=== PATIENT | male | born 1940 | race Caucasian/White ===

== ENCOUNTER 2020-03-02 09:56 | Outpatient (REF) | payer MEDICARE, SELFPAY ==
[2020-03-02 10:54] LABS: Basophils Absolute Auto 0.1 X10*3/uL (0.0-0.2); Basophils Percent Auto 0.9 % (0-2); Eosinophils Absolute Auto 0.2 X10*3/uL (0.0-0.4); Eosinophils Percent Auto 2.8 % (0-4); Hematocrit 42.1 % (42-52); Hemoglobin 13.8 g/dl (14.0-18.0); Imm Gran Abs Auto 0.02 X10*3/uL (0.00-0.03); Imm Gran Pct Auto 0.4 % (0.0-0.4); Lymphocytes Absolute Auto 1.4 X10*3/uL (1.2-4.9); MANUAL DIFF FLAG NO; Mean Corpuscular HGB Conc 32.8 g/dl (31.0-36.0); Mean Corpuscular Hemoglobin 30.7 pg (27.0-33.0); Mean Corpuscular Volume 93.6 fL (80-98); Mean Platelet Volume 11.2 fL (9.4-12.4); Monocytes Absolute Auto 0.6 X10*3/uL (0.1-1.2); Monocytes Percent Auto 11.3 % (2-11); Neutrophils Absolute Auto 3.1 X10*3/uL (2.0-8.3); Neutrophils Percent Auto 57.6 % (45-73); Platelet Count 250 X10*3/uL (160-400); White Blood Count 5.3 X10*3/uL (4.8-10.8)
[2020-03-02 11:08] LABS: Estimated Average Glucose 151 mg/dL; Hemoglobin A1c % 6.9 %
[2020-03-02 11:19] LABS: Creatinine Urine 89.04 mg/dL; Microalbum/Creatinine Ratio Ur 12.3 ug/mg cr
[2020-03-02 11:25] LABS: Alanine Aminotransferase 34 U/L (0-40); Albumin Level 4.1 g/dL (3.5-5.0); Alkaline Phosphatase 71 U/L (39-117); Anion Gap 11 (12-20); Aspartate Amino Transferase 41 U/L (5-37); Bilirubin Total 0.5 mg/dL (0.0-1.0); Blood Urea Nitrogen 22 mg/dL (9-16); Calcium 9.9 mg/dL (8.4-10.2); Carbon Dioxide 30 mmol/L (22-29); Chloride 104 mmol/L (96-108); Cholesterol 159 mg/dL; Estimated Glomerular Filt Rate 55; Glucose Random 129 mg/dL (60-115); HDL Cholesterol 30 mg/dL; LDL Cholesterol Calculated 92 mg/dl; Potassium 4.9 mmol/l (3.3-5.1); Sodium 140 mmol/L (135-145); Total Protein 7.2 g/dL (6.5-8.0); Triglycerides 189 mg/dL
[2020-03-02 11:29] LABS: Free T4 (Free Thyroxine) 0.85 ng/dL (0.71-1.85); Thyroid Stimulating Hormone 3.26 uIU/mL (0.32-4.0)
[2020-03-02 11:41] LABS: Folate > 20.0 ng/mL (> or = 4.0); Vitamin B12 347 pg/mL (200-900)
== END 2020-03-02 09:57 | disposition home or self-care (01) ==
LOC: HO.LAB 09:56
PROVIDERS: PCP Internal Medicine; Visit Provider Internal Medicine
DX: E78.00 Pure hypercholesterolemia, unspecified (principal); E03.9 Hypothyroidism, unspecified; I10 Essential (primary) hypertension; E11.65 Type 2 diabetes mellitus with hyperglycemia; J44.9 Chronic obstructive pulmonary disease, unspecified
CPT/HCPCS: 36415; 80053; 80061; 82043; 82607; 82746; 83036; 84439; 84443; 85025

== ENCOUNTER 2020-10-06 13:06 | Outpatient (REF) | payer MEDICARE, SELFPAY ==
[2020-10-06 13:58] LABS: MANUAL DIFF FLAG NO
[2020-10-06 14:04] LABS: Basophils Absolute Auto 0.1 X10*3/uL (0.0-0.2); Basophils Percent Auto 0.8 % (0-2); Eosinophils Absolute Auto 0.2 X10*3/uL (0.0-0.4); Eosinophils Percent Auto 3.3 % (0-4); Hematocrit 39.4 % (42-52); Imm Gran Abs Auto 0.06 X10*3/uL (0.00-0.03); Immature Retic Fraction 11.2 % (2.3-13.4); Lymphocytes Absolute Auto 1.7 X10*3/uL (1.2-4.9); Lymphocytes Percent Auto 26.3 % (20-40); Mean Corpuscular Hemoglobin 31.3 pg (27.0-33.0); Mean Corpuscular Volume 94.7 fL (80-98); Mean Platelet Volume 11.8 fL (9.4-12.4); Monocytes Absolute Auto 0.9 X10*3/uL (0.1-1.2); Monocytes Percent Auto 14.8 % (2-11); Neutrophils Absolute Auto 3.4 X10*3/uL (2.0-8.3); Neutrophils Percent Auto 53.8 % (45-73); Platelet Count 196 X10*3/uL (160-400); Red Blood Count 4.16 X10*6/uL (4.60-5.80); Retic HGB Equivalent 34.7 pg (30.0-35.0); Reticulocyte Percent 1.5 % (0.5-1.8); Reticulocytes Absolute 0.061 X10*6/uL (0.026-0.095); White Blood Count 6.3 X10*3/uL (4.8-10.8)
[2020-10-06 14:29] LABS: Alanine Aminotransferase 37 U/L (0-40); Albumin Level 4.4 g/dL (3.5-5.0); Alkaline Phosphatase 77 U/L (39-117); Anion Gap 10 (12-20); Aspartate Amino Transferase 42 U/L (5-37); Bilirubin Total 0.5 mg/dL (0.0-1.0); Blood Urea Nitrogen 27 mg/dL (9-16); Calcium 10.6 mg/dL (8.4-10.2); Carbon Dioxide 28 mmol/L (22-29); Chloride 106 mmol/L (96-108); Cholesterol 157 mg/dL; Estimated Glomerular Filt Rate 56; Glucose Random 80 mg/dL (60-115); HDL Cholesterol 29 mg/dL; Iron 56 mcg/dL (45-160); LDL Cholesterol Calculated 53 mg/dl; Percent Iron Saturation 14 % (15-50); Potassium 4.4 mmol/L (3.3-5.1); Sodium 140 mmol/L (135-145); Total Iron Binding Capacity 397 mcg/dL (228-428); Total Protein 7.2 g/dL (6.5-8.0); Triglycerides 376 mg/dL; Unsaturated Iron Binding 341 ug/dL
[2020-10-06 14:39] LABS: Ferritin 463 ng/mL (20-250); Free T4 (Free Thyroxine) 0.87 ng/dL (0.71-1.85); Thyroid Stimulating Hormone 4.48 uIU/mL (0.32-4.0)
[2020-10-06 14:49] LABS: Folate 18.7 ng/mL (> or = 4.0); Vitamin B12 413 pg/mL (200-900)
== END 2020-10-06 13:07 | disposition home or self-care (01) ==
LOC: HO.LAB 13:06
PROVIDERS: PCP Internal Medicine; Visit Provider Internal Medicine
DX: E78.00 Pure hypercholesterolemia, unspecified (principal)
CPT/HCPCS: 36415; 80053; 80061; 82607; 82728; 82746; 83540; 84439; 84443; 85025; 85045

== ENCOUNTER 2021-01-14 08:47 | Outpatient (REF) | payer MEDICARE, SELFPAY ==
[2021-01-14 10:23] LABS: Free T4 (Free Thyroxine) 0.85 ng/dL (0.71-1.85); Thyroid Stimulating Hormone 5.01 uIU/mL (0.32-4.0)
== END 2021-01-14 08:48 | disposition home or self-care (01) ==
LOC: HO.LAB 08:47
PROVIDERS: PCP Internal Medicine; Visit Provider Internal Medicine
DX: E03.9 Hypothyroidism, unspecified (principal)
CPT/HCPCS: 36415; 84439; 84443

== ENCOUNTER 2021-05-24 14:05 | Outpatient (REF) | payer MEDICARE, SELFPAY ==
[2021-05-24 14:47] LABS: Calcium 9.7 mg/dL (8.4-10.2)
[2021-05-24 15:09] LABS: Creatinine Urine 61.84 mg/dL
[2021-05-24 15:13] LABS: Free T4 (Free Thyroxine) 1.01 ng/dL (0.71-1.85); Thyroid Stimulating Hormone 2.33 uIU/mL (0.32-4.0)
[2021-05-26 07:16] LABS: Calcium (PTHI) 10.3 mg/dL (8.6-10.3); PTHI 29 pg/mL (16-77)
== END 2021-05-24 14:06 | disposition home or self-care (01) ==
LOC: HO.LAB 14:05
PROVIDERS: PCP Internal Medicine; Visit Provider Internal Medicine
DX: E11.65 Type 2 diabetes mellitus with hyperglycemia (principal); E83.52 Hypercalcemia; E03.9 Hypothyroidism, unspecified
CPT/HCPCS: 36415; 82310; 83970; 84439; 84443

== ENCOUNTER 2021-09-13 10:45 | Outpatient (REF) | payer MEDICARE, SELFPAY ==
[2021-09-13 10:55] LABS: MANUAL DIFF FLAG NO
[2021-09-13 13:06] LABS: Basophils Absolute Auto 0.1 X10*3/uL (0.0-0.2); Basophils Percent Auto 0.9 % (0-2); Eosinophils Absolute Auto 0.2 X10*3/uL (0.0-0.4); Eosinophils Percent Auto 2.2 % (0-4); Hematocrit 40.8 % (42.0-52.0); Hemoglobin 13.3 g/dl (14.0-18.0); Imm Gran Abs Auto 0.03 X10*3/uL (0.00-0.03); Imm Gran Pct Auto 0.4 % (0.0-0.4); Lymphocytes Absolute Auto 1.5 X10*3/uL (1.2-4.9); Lymphocytes Percent Auto 18.9 % (20-40); Mean Corpuscular HGB Conc 32.6 g/dl (31.0-36.0); Mean Corpuscular Hemoglobin 30.6 pg (27.0-33.0); Mean Corpuscular Volume 93.8 fL (80.0-98.0); Monocytes Absolute Auto 1.2 X10*3/uL (0.1-1.2); Monocytes Percent Auto 14.9 % (2-11); Neutrophils Absolute Auto 4.8 x10*3/uL (2.0-8.3); Neutrophils Percent Auto 62.7 % (45-73); Platelet Count 184 X10*3/uL (160-400); Red Blood Count 4.35 X10*6/uL (4.60-5.80); Red Cell Distribution Width 13.4 % (11.0-16.0); White Blood Count 7.7 X10*3/uL (4.8-10.8)
[2021-09-13 13:47] LABS: Estimated Average Glucose 128 mg/dL; Hemoglobin A1C 152.6762 umol/L; Hemoglobin A1c % 6.1 %
[2021-09-13 14:01] LABS: Alanine Aminotransferase 27 U/L (0-40); Albumin Level 4.4 g/dL (3.5-5.0); Alkaline Phosphatase 75 U/L (39-117); Anion Gap 13 (12-20); Aspartate Amino Transferase 26 U/L (5-37); Bilirubin Total 0.7 mg/dL (0.0-1.0); Blood Urea Nitrogen 27 mg/dL (9-16); Calcium 9.3 mg/dL (8.4-10.2); Carbon Dioxide 23 mmol/L (22-29); Chloride 107 mmol/L (96-108); Cholesterol 172 mg/dL; Estimated Glomerular Filt Rate 49; Glucose Random 114 mg/dL (60-115); HDL Cholesterol 36 mg/dL; LDL Cholesterol Calculated 103 mg/dl; Potassium 4.5 mmol/L (3.3-5.1); Sodium 138 mmol/L (135-145); Total Protein 7.3 g/dL (6.5-8.0); Triglycerides 165 mg/dL
[2021-09-13 14:09] LABS: Free T4 (Free Thyroxine) 0.95 ng/dL (0.71-1.85); Thyroid Stimulating Hormone 2.62 uIU/mL (0.32-4.0)
[2021-09-13 14:20] LABS: Folate > 20.0 ng/mL (> or = 4.0); Vitamin B12 468 pg/mL (200-900)
[2021-09-13 15:23] LABS: Creatinine Urine 119.92 mg/dL; Microalbum/Creatinine Ratio Ur 16.6 ug/mg cr
== END 2021-09-13 10:46 | disposition home or self-care (01) ==
LOC: HO.LAB 10:45
PROVIDERS: PCP Internal Medicine; Visit Provider Internal Medicine
DX: E78.00 Pure hypercholesterolemia, unspecified (principal); E11.65 Type 2 diabetes mellitus with hyperglycemia; I10 Essential (primary) hypertension; E03.9 Hypothyroidism, unspecified
CPT/HCPCS: 36415; 80053; 80061; 82043; 82607; 82746; 83036; 84439; 84443; 85025

== ENCOUNTER 2021-12-19 11:29 | Outpatient (REF) | payer MEDICARE, SELFPAY ==
[2021-12-19 12:16] LABS: Estimated Average Glucose 137 mg/dL; Hemoglobin A1c % 6.4 %
[2021-12-19 12:30] LABS: Alanine Aminotransferase 40 U/L (0-40); Albumin Level 4.4 g/dL (3.5-5.0); Alkaline Phosphatase 72 U/L (39-117); Anion Gap 14 (12-20); Aspartate Amino Transferase 42 U/L (5-37); Bilirubin Total 0.6 mg/dL (0.0-1.0); Blood Urea Nitrogen 23 mg/dL (9-16); Calcium 10.3 mg/dL (8.4-10.2); Carbon Dioxide 27 mmol/L (22-29); Chloride 103 mmol/L (96-108); Cholesterol 172 mg/dL; Estimated Glomerular Filt Rate 48; Glucose Random 101 mg/dL (60-115); HDL Cholesterol 31 mg/dL; LDL Cholesterol Calculated 104 mg/dl; Potassium 5.3 mmol/L (3.3-5.1); Sodium 139 mmol/L (135-145); Total Protein 7.3 g/dL (6.5-8.0); Triglycerides 186 mg/dL
== END 2021-12-19 11:30 | disposition home or self-care (01) ==
LOC: HO.LAB 11:29
PROVIDERS: PCP Internal Medicine; Visit Provider Internal Medicine
DX: E11.65 Type 2 diabetes mellitus with hyperglycemia (principal); E78.00 Pure hypercholesterolemia, unspecified
CPT/HCPCS: 36415; 80053; 80061; 83036

== ENCOUNTER 2022-03-24 09:42 | Outpatient (REF) | payer MEDICARE, SELFPAY ==
[2022-03-24 10:20] LABS: Appearance Urine Clear; Color Urine Yellow; Glucose Urine UA Negative (Negative); Leukocyte Esterase Urine Negative (Negative); Nitrite Urine Negative (Negative); PH 5.5 (5.0-9.0); Specific Gravity - Urine 1.015 (1.005-1.025); Urine Blood Negative (Negative); Urine Ketones Negative (Negative); Urine Protein Negative (Neg-Trace)
[2022-03-24 10:23] LABS: Bacteria Urine None Seen (None Seen); Hyaline Casts Urine 0-2 /LPF (0-2); RBC Urine 0-2 /HPF (0-2); Squamous Epithelial Cell Urine 0-2 /HPF (0-2); WBC Urine 0-5 /HPF (0-5)
[2022-03-24 11:13] LABS: Alanine Aminotransferase 37 U/L (0-40); Albumin Level 4.2 g/dL (3.5-5.0); Alkaline Phosphatase 74 U/L (39-117); Anion Gap 13 (12-20); Aspartate Amino Transferase 30 U/L (5-37); Bilirubin Total 0.6 mg/dL (0.0-1.0); Blood Urea Nitrogen 29 mg/dL (9-16); Calcium 9.8 mg/dL (8.4-10.2); Carbon Dioxide 25 mmol/L (22-29); Chloride 106 mmol/L (96-108); Cholesterol 167 mg/dL; Estimated Glomerular Filt Rate > 60; Glucose Random 116 mg/dL (60-115); HDL Cholesterol 32 mg/dL; LDL Cholesterol Calculated 102 mg/dl; Sodium 139 mmol/L (135-145); Total Protein 6.9 g/dL (6.5-8.0); Triglycerides 166 mg/dL
== END 2022-03-24 09:43 | disposition home or self-care (01) ==
LOC: HO.LAB 09:42
PROVIDERS: PCP Internal Medicine; Visit Provider Internal Medicine
DX: E78.00 Pure hypercholesterolemia, unspecified (principal); R35.0 Frequency of micturition; N28.9 Disorder of kidney and ureter, unspecified
CPT/HCPCS: 36415; 80053; 80061; 81001

== ENCOUNTER 2022-04-18 13:40 | Outpatient (REF) | payer MEDICARE, SELFPAY ==
--- NOTE | ~2022-04-18 | US_ITS ---
EXAMINATION: US PELVIS LIMITED (BLADDER) CLINICAL INFORMATION: Frequency of micturition. COMPARISON: CT abdomen without contrast 09/03/2015. Ultrasound abdomen complete 06/27/2012. TECHNIQUE: Real-time imaging of the bladder. FINDINGS: BLADDER: Well distended and normal. Bilateral ureteral jets are demonstrated. Prevoid bladder volume is 193 mL. Postvoid bladder volume is 35 mL. There are bladder wall trabeculations, with thickening to 7 mm ADDITIONAL FINDINGS: Prostate dimensions are 3.5 x 4.2 x 4.0 cm (volume 30.7 mL). Coarse prostatic calcifications are noted. US/US bladder IMPRESSION: 1. There is a thickened, trabeculated bladder wall, possibly on the basis of hypertrophy. Urinary tract infection not excluded. Recommend correlation with the patient's most recent urinalysis. 2. There is borderline prostatomegaly.
== END 2022-04-18 13:41 | disposition home or self-care (01) ==
LOC: HO.US 13:40
PROVIDERS: Visit Provider Internal Medicine
DX: R35.0 Frequency of micturition (principal)
CPT/HCPCS: 76857

== ENCOUNTER 2022-06-23 07:42 | Outpatient (REF) | payer MEDICARE, SELFPAY ==
[2022-06-23 07:51] LABS: MANUAL DIFF FLAG NO
[2022-06-23 08:10] LABS: Basophils Absolute Auto 0.1 X10*3/uL (0.0-0.2); Eosinophils Absolute Auto 0.3 X10*3/uL (0.0-0.4); Hematocrit 42.9 % (42.0-52.0); Imm Gran Abs Auto 0.03 X10*3/uL (0.00-0.03); Imm Gran Pct Auto 0.5 % (0.0-0.4); Immature Retic Fraction 9.2 % (2.3-13.4); Mean Corpuscular HGB Conc 32.6 g/dl (31.0-36.0); Mean Corpuscular Volume 92.1 fL (80.0-98.0); Mean Platelet Volume 11.3 fL (9.4-12.4); Monocytes Absolute Auto 0.9 X10*3/uL (0.1-1.2); Monocytes Percent Auto 14.1 % (2-11); Neutrophils Absolute Auto 3.1 x10*3/uL (2.0-8.3); Neutrophils Percent Auto 48.4 % (45-73); Platelet Count 202 X10*3/uL (160-400); Red Blood Count 4.66 X10*6/uL (4.60-5.80); Red Cell Distribution Width 13.5 % (11.0-16.0); Retic HGB Equivalent 36.6 pg (30.0-35.0); Reticulocyte Percent 1.4 % (0.5-1.8); Reticulocytes Absolute 0.065 X10*6/uL (0.026-0.095); White Blood Count 6.3 X10*3/uL (4.8-10.8)
[2022-06-23 08:19] LABS: Estimated Average Glucose 160 mg/dL; Hemoglobin A1c % 7.2 %
[2022-06-23 08:36] LABS: Blood Urea Nitrogen 32 mg/dL (9-16); Cholesterol 168 mg/dL; HDL Cholesterol 30 mg/dL; Iron 86 mcg/dL (45-160); LDL Cholesterol Calculated 93 mg/dl; Percent Iron Saturation 24 % (15-50); Total Iron Binding Capacity 364 mcg/dL (228-428); Triglycerides 225 mg/dL; Unsaturated Iron Binding 278 ug/dL
[2022-06-23 09:05] LABS: Ferritin 537 ng/mL (20-250); Folate 9.5 ng/mL (> or = 4.0); Thyroid Stimulating Hormone 5.09 uIU/mL (0.32-4.0); Vitamin B12 313 pg/mL (200-900)
== END 2022-06-23 07:43 | disposition home or self-care (01) ==
LOC: HO.LAB 07:42
PROVIDERS: PCP Internal Medicine; Visit Provider Internal Medicine
DX: E78.00 Pure hypercholesterolemia, unspecified (principal); N28.9 Disorder of kidney and ureter, unspecified; D64.9 Anemia, unspecified; E11.9 Type 2 diabetes mellitus without complications
CPT/HCPCS: 36415; 80061; 82607; 82728; 82746; 83036; 83540; 84439; 84443; 84520; 85025; 85045

== ENCOUNTER 2022-09-26 09:03 | Outpatient (REF) | payer MEDICARE, SELFPAY ==
[2022-09-26 10:03] LABS: Free T4 (Free Thyroxine) 0.83 ng/dL (0.71-1.85); Thyroid Stimulating Hormone 4.24 uIU/mL (0.32-4.0)
== END 2022-09-26 09:04 | disposition home or self-care (01) ==
LOC: HO.LAB 09:03
PROVIDERS: PCP Internal Medicine; Visit Provider Internal Medicine
DX: E03.9 Hypothyroidism, unspecified (principal)
CPT/HCPCS: 36415; 84439; 84443

== ENCOUNTER 2022-09-28 16:01 | Outpatient (AMB) | payer MEDICARE, SELFPAY ==
[2022-09-28 16:04] VITALS: BP 120/82; PULSE 57; O2SAT 98; BMI 28.3
--- NOTE | 2022-09-28 16:04 | A.OFFPC_ITS ---
Vital Signs 09/28/22 16:04 Height 5 ft 10 in Weight 197 lb BMI 28.3 BP 120/82 Blood Pressure Location Lt brachial Position Sitting Pulse 57 Pulse Source Pulse Oximeter Pulse Oximetry (%) 98 Oxygen Delivery Method Room Air Intake Visit Reasons: [employer] Vice [employer] Required: No Accompanied by: Self / Same As Patient Allergies hydromorphone [Dilaudid] Adverse Reaction (Unknown, Verified 09/28/22 16:22) Unknown Medication List - Last Reconciled 09/28/22 by Nargis Palm MD aspirin (Adult Aspirin Regimen) 81 mg PO DAILY atorvastatin 20 mg PO DAILY cholecalciferol (vitamin D3) 25 mcg PO DAILY colchicine 0.6 mg PO DAILY fenofibrate 160 mg PO DAILY levothyroxine 88 mcg PO QAM 90 days lisinopril 40 mg PO DAILY tramadol 1-2 tablets PO every 6 to 8 hours; 30 days Tobacco use date assessed: 09/28/22 Fall risk assessment: No Falls in past year Last assessed Fall Risk: 09/28/22 Dental Screening Dental Screen Date: 09/28/22 Did you have a dental visit in the last 12 months?: No Did you have a dental problem in the last 6 months where you did not have access to dental care?: No Was dental information given to patient?: No HPI HPI Comments History of Present Illness Details This is a 81-year-old male with diabetes mellitus type 2, hypertension, hypothyroidism and mixed hyperlipidemia that comes today for follow-up on his conditions. A1c within goal and diabetes has been controlled with diet. Blood pressure stable. Last TSH was mildly elevated and levothyroxine was change recently. LDL very close to goal. Denies any chest pain or shortness of breath. Has been more sad than usual due to passing away a month ago but declines the need for counseling or medication. [facility] Medical History (Updated 09/29/22 @ 08:54 by Nargis Palm MD) AAA (abdominal aortic aneurysm) Alcohol abuse Carpal tunnel syndrome, left COPD (chronic obstructive pulmonary disease) Degenerative disc disease Gout Hypercholesterolemia Hypertension Hypothyroid Insomnia Overweight (BMI 25.0-29.9) PTSD (post-traumatic stress disorder) TIA (transient ischemic attack) Type 2 diabetes mellitus with hyperglycemia Surgical History H/O left wrist surgery H/O pelvic surgery History of carpal tunnel release History of colonoscopy History of lumbar fusion History of lumbar surgery Varicocele Family History Father CVD (cardiovascular disease) Cancer Mother Cancer Social History Housing: House Alcohol intake: current Alcohol intake frequency: a few times a month Patient Tobacco Use Status: Former Tobacco user Tobacco use type: Cigarette e-Cigarette/Vaping Use: Never Used Second Hand Smoke Exposure: No service: Yes Current occupational status: retired Cognitive needs: No Hearing needs: No Vision needs: Yes Questionnaire PHQ-9 Over the last 2 weeks, how often have you been bothered by any of the following problems? 1. Little interest or pleasure in doing things: not at all 2. Feeling down, depressed, or hopeless: not at all 3. Trouble falling or staying asleep, or sleeping too much: not at all 4. Feeling tired or having little energy: not at all 5. Poor appetite or overeating: not at all 6. Feeling bad about yourself - or that you are a failure or have let yourself or your family down: not at all 7. Trouble concentrating on things, such as reading the newspaper or watching television: not at all 8. Moving or speaking so slowly that other people could have noticed. Or the opposite - being so fidgety or restless that you have been moving around a lot more than usual: not at all 9. Thoughts that you would be better off or of hurting yourself in some way: not at all Total score: 0 Depression Screening Interpretation: Negative 25988 - PHQ-9 Billing: Yes Source: Developed by Drs. Vicente Rocha, Tessa Mantilla, Marcelo Jacobson and colleagues, with an educational leeann from [employer]. Thrive Questionnaire Date Thrive assessed: 09/28/22 I am a: Patient What is your living situation today?: I have a steady place to live Within the past 12 months, did the food you bought not last and you didn't have the money to get more?: Never true Within the past 12 months, did you worry whether your food would run out before you got money to buy more?: Never true Do you have trouble paying for medicines?: No Do you have trouble getting transportation to medical appointments?: No Do you have trouble paying your heating and electricity bill?: No Do you have trouble taking care of your child, family member or friend?: No Do you have trouble with day-to-day activities such as bathing, preparing meals, shopping, managing finances, etc.?: No Are you currently unemployed and looking for a job?: No Are you interested in more education?: No Please select the resources that you would like help with: None Currently or been in a relationship where the following occur: no concerns reported AUDIT C Alcohol Use Questionnaire (AUDIT-C) 1. How often do you have a drink containing alcohol?: Monthly or less 2. How many drinks containing alcohol do you have on a typical day when you are drinking?: 1 or 2 3. How often do you have six or more drinks on one occasion?: Less than monthly Total Score: 2 Score Reviewed/Action Taken: No RACHEL-7 AMB Questionnaire RACHEL-7 Date RACHEL - 7 assessed: 09/28/22 Feeling nervous, anxious, or on edge: 0 = Not at all Not being able to stop or control worryin = Not at all Worrying too much about different things: 0 = Not at all Trouble relaxin = Not at all Being so restless that it is hard to sit still: 0 = Not at all Becoming easily annoyed or irritable: 0 = Not at all Feeling afraid as if something awful might happen: 0 = Not at all Total RACHEL-7 score (0-4 normal; 5-9 mild; 10-14 moderate; 15-21 severe): 0 Source: Developed by Drs. Vicente Rocha, Tessa Mantilla, Marcelo Jacobson and colleagues, with an educational leeann from [employer]. RACHEL-7 Assessment Billing RACHEL-7 Assessment Tool: RACHEL-7 Assessment 45773 Review of Systems Const All systems reviewed & are unremarkable except as noted in HPI and below Eyes Reports no additional complaints, Denies change in vision and Denies other visual disturbances Card Denies chest pain at rest, Denies chest pain with activity, Denies edema, Denies irregular heart rhythm, Denies claudication, Denies dyspnea, Denies dyspnea on exertion, Denies orthopnea, Denies paroxysmal nocturnal dyspnea and Denies slow heart rate Resp Denies cough, Denies dyspnea and Denies dyspnea on exertion GI Denies abdominal pain, Denies change in bowel habits, Denies excessive flatus, Denies nausea and Denies vomiting Denies urinary hesitancy, Denies urinary incontinence and Denies urinary urgency Musc Denies abnormal gait, Denies atrophy, Denies deformity and Denies limited range of motion Skin/Breast Denies bleeding lesions, Denies changing lesions and Denies rash Neuro Denies abnormal gait and Denies lack of coordination Physical exam (Primary Care) Vital Signs: Last Vital Signs Pulse 57 09/28/22 16:04 BP 120/82 09/28/22 16:04 Pulse Ox 98 09/28/22 16:04 Oxygen Delivery Method Room Air 09/28/22 16:04 BMI result Body Mass Index 28.3 Tobacco/Smoking Status: Tobacco use Status Tobacco use date assessed 09/28/22 09/28/22 16:10 Patient Tobacco Use Status Former Tobacco user 09/28/22 16:10 Tobacco use type Cigarette 09/28/22 16:10 e-Cigarette/Vaping Use Never Used 09/28/22 16:10 PHQ-9: PHQ-9 Score PHQ-9: Total score 0 09/28/22 16:40 Depression Screening Interpretation: Negative Thrive Assessment: Date of Thrive Assessment Date Thrive assessed 09/28/22 09/28/22 16:10 Currently or been in a relationship where the following occur: no concerns reported Eyes General: appearance normal, both eyes and all related structures Eyelids: Yes eyelids normal Conjunctivae: conjunctivae normal Neck Neck: Yes normal visual inspection and Yes supple Resp Effort & Inspection: normal respiratory effort Auscultation: clear to auscultation bilaterally Cardio Jugular venous distension: no JVD Rate: regular rate Rhythm: regular rhythm Heart sounds: S1 normal heart sound present and S2 normal heart sound present Extrem General: Yes full ROM Results AMB Hemoglobin A1c AMB Hemoglobin A1c 6.6 % Last Edit by JOSHUA Serrano on 09/28/22 16:2 1 Results Reviewed Results Reviewed: Laboratory Last Values Hgb A1c (Clinic) 6.6 % (4.0-6.0) H 09/28/22 16:11 Assessment and Plan Assessment & Plan (1) Hypertension: Code(s): I10 - Essential (primary) hypertension Qualifiers: Hypertension type: essential hypertension Qualified Code(s): I10 - Essential (primary) hypertension Plan: Continue lisinopril. Blood pressure goal is equal or less than 130/80. (2) Type 2 diabetes mellitus with hyperglycemia: Code(s): E11.65 - Type 2 diabetes mellitus with hyperglycemia Qualifiers: Diabetes mellitus penitentiary insulin use: without intermediate card tender use Qualified Code(s): E11.65 - Type 2 diabetes mellitus with hyperglycemia Plan: Continue diet. A1c goal is equal or less than 7%. (3) Hypothyroid: Code(s): E03.9 - Hypothyroidism, unspecified Qualifiers: Hypothyroidism type: acquired Qualified Code(s): E03.9 - Hypothyroidism, unspecified Plan: Continue new dose of levothyroxine. Monitor TSH. (4) Mixed hyperlipidemia: Code(s): E78.2 - Mixed hyperlipidemia Plan: Continue statins and fibrates. LDL goal should be less than 70. Orders: Orders AMB Hemoglobin A1c 09/28/22 E11.65 - Type 2 diabetes mellitus with hyperglycemia Coding Level of Care Code Est Pt Level 4 (98046) Diagnoses Hypertension I10 Hypertension type: essential hypertension Type 2 diabetes mellitus with hyperglycemia E11.65 Diabetes mellitus penitentiary insulin use: without penitentiary use Hypothyroid E03.9 Hypothyroidism type: acquired Mixed hyperlipidemia E78.2 Additional Codes RACHEL-7 Assessment Billing - RACHEL-7 Assessment Tool: RACHEL-7 Assessment 75668 ([id number]) Time Spent (min) 22
== END 2022-09-28 16:37 | disposition home or self-care (01) ==
PROVIDERS: Visit Provider Internal Medicine
DX: I10 Essential (primary) hypertension (principal); E11.65 Type 2 diabetes mellitus with hyperglycemia; E03.9 Hypothyroidism, unspecified; E78.2 Mixed hyperlipidemia
CPT/HCPCS: 83036; 99214

== ENCOUNTER 2022-10-11 10:42 | Outpatient (AMB) | payer MEDICARE, SELFPAY ==
[2022-10-11 10:46] VITALS: BP 138/74; PULSE 56; O2SAT 96; BMI 28.7
--- NOTE | 2022-10-11 10:46 | A.OFFVIS_ITS ---
Intake Vital Signs 10/11/22 10:46 Height 5 ft 10 in Weight 200 lb BMI 28.7 BP 138/74 Blood Pressure Location Lt brachial Position Sitting Pulse 56 Pulse Source Pulse Oximeter Temp Source Skin Pulse Oximetry (%) 96 Oxygen Delivery Method Room Air Intake Visit Reasons: [id number] Intake Note: Patient is here for an Annual Wellness Visit. 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: No Allergies hydromorphone [Dilaudid] Adverse Reaction (Unknown, Verified 10/11/22 11:04) Unknown Medication List - Last Reconciled 10/11/22 by CHAPIN Almonte aspirin (Adult Aspirin Regimen) 81 mg PO DAILY atorvastatin 20 mg PO DAILY cholecalciferol (vitamin D3) 25 mcg PO DAILY colchicine 0.6 mg PO DAILY fenofibrate 160 mg PO DAILY levothyroxine 88 mcg PO QAM 90 days lisinopril 40 mg PO DAILY tramadol 1-2 tablets PO every 6 to 8 hours; 30 days Fall Risk Assessment Date Fall Risk Assessed: 09/28/22 HPI [facility]-G0439 HPI Details Patient is an 82-year-old male presents today for subsequent wellness visit. Patient of Dr. Garces. Patient is up-to-date with his health preventative screenings.? He is up-to-date with immunizations. [place] of care was reviewed with the patient and he was provided with a screening schedule.? End of life planning was discussed with the patient and he was provided with healthcare proxy and MOLST forms. ? [facility] Medical History AAA (abdominal aortic aneurysm) Alcohol abuse Carpal tunnel syndrome, left COPD (chronic obstructive pulmonary disease) Degenerative disc disease Gout Hypercholesterolemia Hypertension Hypothyroid Insomnia Overweight (BMI 25.0-29.9) PTSD (post-traumatic stress disorder) TIA (transient ischemic attack) Type 2 diabetes mellitus with hyperglycemia Surgical History H/O left wrist surgery H/O pelvic surgery History of carpal tunnel release History of colonoscopy History of lumbar fusion History of lumbar surgery Varicocele Family History Father CVD (cardiovascular disease) Cancer Mother Cancer Social History Housing: House Alcohol intake: current Alcohol intake frequency: a few times a month Patient Tobacco Use Status: Former Tobacco user Tobacco use type: Cigarette e-Cigarette/Vaping Use: Never Used Second Hand Smoke Exposure: No service: Yes Current occupational status: retired Cognitive needs: No Hearing needs: No Vision needs: Yes Questionnaire Medicare Wellness Checkup What is your age?: 82 or older What gender do you identify with?: male During the past 4 weeks, how much bodily pain have you generally had?: mild pain During the past 4 weeks, was someone available to help you if you needed & wanted help?: yes, as much as I wanted During the past 4 weeks, what was the hardest physical activity you could do for at least 2 minutes?: moderate Can you get to places out of walking distance without help? (For eg., can you travel alone on buses, taxis or drive your car?): Yes Can you go shopping for groceries or clothes without someone's help?: Yes Can you prepare your own meals?: Yes Can you do your housework without help?: Yes Because of any health problems, do you need the help of another person with your personal care needs such as eating, bathing, dressing or getting around the house?: No Can you handle your own money without help?: Yes During the past 4 weeks, how would you rate your health in general?: good During the past 4 weeks how have things been going for you?: good & bad parts about equal Are you having difficulties driving your car?: no Do you always fasten your seat belt when you are in a car?: yes, usually During past 4 weeks, have you been bothered by the following: never: Falling or dizzy when standing up, Sexual problems?, Trouble eating well?, Teeth or denture problems? and Problems using the telephone? and sometimes: Tiredness or fatigue? Have you fallen 2 or more times in the past year?: No Are you afraid of falling?: No Are you a smoker?: no During the past 4 weeks, how many drinks of wine, beer, or other alcoholic beverages did you have?: 1 drink or less per week Do you exercise for about 20 minutes 3 or more times a week?: yes, some of the time Have you been given information to help with the following?: no: Hazards in your house that might hurt you? and no: Keeping track of your medications? How often do you have trouble taking medicines the way you have been told to take them?: I always take medicine as prescribed How confident are you that you can control & manage most of your health problems?: very confident What is your race?: White Mini Mental State Exam (MMSE) Orientation What is the (year) (season) (date) (day) (month)?: year, season, date, day and month Score Score: 5 Activity of Daily Living Bathing - sponge bath, tub bath or shower: receives no assistance (gets in/out by self, if usual bathing means Dressing - getting clothes from closets & drawers, including inner/outer garments & fasteners.: gets clothes & gets completely dressed without help Toileting - going to the 'toilet room' for urine/bowel elimination & cleaning self/arranging clothes: goes to toilet room, cleans self, arranges clothes without help Transfer: moves in & out of bed and chair without help (may use support object) Continence: controls urination/bowel movements completely by self Feeding: feeds self without help Total Score: 0 Information obtained from: patient Using telephone: independent Traveling: independent Shopping: independent Preparing meals: independent Housework: independent Taking medicine: independent Managing money: independent PHQ-9 Over the last 2 weeks, how often have you been bothered by any of the following problems? 1. Little interest or pleasure in doing things: not at all 2. Feeling down, depressed, or hopeless: not at all 3. Trouble falling or staying asleep, or sleeping too much: not at all 4. Feeling tired or having little energy: several days 5. Poor appetite or overeating: not at all 6. Feeling bad about yourself - or that you are a failure or have let yourself or your family down: not at all 7. Trouble concentrating on things, such as reading the newspaper or watching television: not at all 8. Moving or speaking so slowly that other people could have noticed. Or the opposite - being so fidgety or restless that you have been moving around a lot more than usual: not at all 9. Thoughts that you would be better off or of hurting yourself in some way: not at all Total score: 1 Depression Screening Interpretation: Negative 74245 - PHQ-9 Billing: Yes Source: Developed by Drs. Vicente Rocha, Marcelo Whitaker and colleagues, with an educational leeann from [employer]. RACHEL-7 AMB Questionnaire RACHEL-7 Date RACHEL - 7 assessed: 10/11/22 Feeling nervous, anxious, or on edge: 0 = Not at all Not being able to stop or control worryin = Not at all Worrying too much about different things: 0 = Not at all Trouble relaxin = Not at all Being so restless that it is hard to sit still: 0 = Not at all Becoming easily annoyed or irritable: 0 = Not at all Feeling afraid as if something awful might happen: 0 = Not at all Total RACHEL-7 score (0-4 normal; 5-9 mild; 10-14 moderate; 15-21 severe): 0 Source: Developed by Drs. Vicente Rocha, Marcelo Whitaker and colleagues, with an educational leeann from [employer]. RACHEL-7 Assessment Billing RACHEL-7 Assessment Tool: RACHEL-7 Assessment 61574 AUDIT C Alcohol Use Questionnaire (AUDIT-C) 1. How often do you have a drink containing alcohol?: Monthly or less 2. How many drinks containing alcohol do you have on a typical day when you are drinking?: 1 or 2 3. How often do you have six or more drinks on one occasion?: Less than monthly Total Score: 2 Score Reviewed/Action Taken: No Thrive Questionnaire Date Thrive assessed: 09/28/22 Physical Exam Vital Signs: Last Vital Signs Pulse 56 10/11/22 10:46 BP 138/74 10/11/22 10:46 Pulse Ox 96 10/11/22 10:46 Oxygen Delivery Method Room Air 10/11/22 10:46 BMI result Body Mass Index 28.7 Const General: cooperative and no acute distress Orientation/consciousness: patient oriented x3 HEENT Other: Whisper test: pass Neuro Other: Balance: Normal Get up and walk: able to Romberg: negative Tandem gait: unable to General: patient oriented x3 Assessment & Plan Assessment & Plan (1) Adult general medical exam: Code(s): Z00.00 - Encounter for general adult medical examination without abnormal findings (2) AAA (abdominal aortic aneurysm): Comment: 2012 3-3.2 cm, 2013 4.3, August 2015 3-3.3 for cm, January [address] Bains, July 2020 2.6 x 3 cm Code(s): I71.4 - Abdominal aortic aneurysm, without rupture Qualifiers: Presence of rupture: without rupture Qualified Code(s): I71.4 - Abdominal aortic aneurysm, without rupture Plan: Patient is followed by vascular provider Dr. Bains at [facility] [place] for yearly ultrasounds (3) Hypercholesterolemia: Code(s): E78.00 - Pure hypercholesterolemia, unspecified Plan: Continue current treatment Low-cholesterol diet (4) COPD (chronic obstructive pulmonary disease): Code(s): J44.9 - Chronic obstructive pulmonary disease, unspecified Qualifiers: COPD type: emphysema Emphysema type: unspecified Qualified Code(s): J43.9 - Emphysema, unspecified Plan: Stable (5) Hypothyroid: Code(s): E03.9 - Hypothyroidism, unspecified Qualifiers: Hypothyroidism type: acquired Qualified Code(s): E03.9 - Hypothyroidism, unspecified Plan: Levothyroxine 88 mcg daily (6) Type 2 diabetes mellitus with hyperglycemia: Code(s): E11.65 - Type 2 diabetes mellitus with hyperglycemia Qualifiers: Diabetes mellitus correction insulin use: without terminal worker use Qualified Code(s): E11.65 - Type 2 diabetes mellitus with hyperglycemia Plan: A1c 6.6 09/2022 Diabetes is diet controlled Reinforced low carbohydrate diet Patient has an upcoming appointment for an eye exam at [facility] in [place] (7) Hypertension: Code(s): I10 - Essential (primary) hypertension Qualifiers: Hypertension type: essential hypertension Qualified Code(s): I10 - Essential (primary) hypertension Plan: Continue current treatment Low-sodium diet Quality Reporting (2019) Fall Risk Screening (CMS 139) Last assessed Fall Risk: 09/28/22 Depression/Bipolar (159/160/161/177) PHQ-9: Total score: 1 Coding Level of Care Code Medicare Subsequent (G0439) Diagnoses Adult general medical exam Z00.00 AAA (abdominal aortic aneurysm) I71.4 Presence of rupture: without rupture Hypercholesterolemia E78.00 COPD (chronic obstructive pulmonary disease) J43.9 COPD type: emphysema Emphysema type: unspecified Hypothyroid E03.9 Hypothyroidism type: acquired Type 2 diabetes mellitus with hyperglycemia E11.65 Diabetes mellitus correction insulin use: without correction use Hypertension I10 Hypertension type: essential hypertension CPT Codes Advance Care Planning - Time spent: 1-15 minutes, not on file ([id number]) Additional Codes RACHEL-7 Assessment Billing - RACHEL-7 Assessment Tool: RACHEL-7 Assessment 91330 ([id number]) Advance Care Planning Date of discussion: 10/11/22 Who was present: pt and offset press assistant Forms completed: None Time spent: 1-15 minutes, not on file Actual minutes spent: 3 Did not discuss due to Cultural/Spiritual beliefs: No
== END 2022-10-11 11:22 | disposition home or self-care (01) ==
PROVIDERS: Visit Provider Nurse Practitioner Family
DX: Z00.00 Encounter for general adult medical examination without abnormal findings (principal); I71.40 Abdominal aortic aneurysm, without rupture, unspecified; E78.00 Pure hypercholesterolemia, unspecified; J43.9 Emphysema, unspecified; E03.9 Hypothyroidism, unspecified; E11.65 Type 2 diabetes mellitus with hyperglycemia; I10 Essential (primary) hypertension
CPT/HCPCS: 1124F; G0439

== ENCOUNTER 2023-02-05 13:18 | Outpatient (REF) | payer MEDICARE, SELFPAY ==
[2023-02-05 15:14] LABS: Thyroid Stimulating Hormone 3.64 uIU/mL (0.32-4.0)
== END 2023-02-05 13:19 | disposition home or self-care (01) ==
LOC: HO.LAB 13:18
PROVIDERS: PCP Internal Medicine; Visit Provider Internal Medicine
DX: E03.9 Hypothyroidism, unspecified (principal)
CPT/HCPCS: 36415; 84439; 84443

== ENCOUNTER 2023-02-08 15:14 | Outpatient (AMB) | payer MEDICARE, SELFPAY ==
--- NOTE | 2023-02-08 15:27 | MHC.PC.OV ---
Vital Signs 02/08/23 15:28 02/08/23 16:12 Height 5 ft 10 in Weight 201 lb 6 oz BMI 28.9 BP 160/98 H 144/90 H Blood Pressure Location Lt brachial Lt brachial Position Sitting Sitting Pulse 68 Pulse Source Pulse Oximeter Pulse Oximetry (%) 98 Oxygen Delivery Method Room Air Intake Visit Reasons: dm Systems Support Specialist Required: No Accompanied by: Self / Same As Patient Allergies hydromorphone [Dilaudid] Adverse Reaction (Unknown, Verified 02/08/23 15:28) Unknown Medication List - Last Reconciled 02/08/23 by Alan Garces MD aspirin (Adult Aspirin Regimen) 81 mg PO DAILY atorvastatin 20 mg PO DAILY cholecalciferol (vitamin D3) 25 mcg PO DAILY colchicine 0.6 mg PO DAILY fenofibrate 160 mg PO DAILY levothyroxine 88 mcg PO QAM 90 days lisinopril 40 mg PO DAILY tramadol 1-2 tablets PO every 6 to 8 hours; 30 days Tobacco use date assessed: 09/28/22 Fall risk assessment: No Falls in past year Last assessed Fall Risk: 02/08/23 Dental Screening Dental Screen Date: 02/08/23 Did you have a dental visit in the last 12 months?: No Did you have a dental problem in the last 6 months where you did not have access to dental care?: No Was dental information given to patient?: Yes HPI dm HPI Details 82-year-old male with uncontrolled diabetes mellitus hypertension hypothyroidism hypercholesterolemia COPD last seen in June 2022. Patient is here for follow-up colonoscopy is up-to-date. Review of the notes did see nurse practitioner for annual well visit in October . Was seen here also in September. BP high today - sister is sick right now in states dying and so patient is very anxious right now blood pressure is high patient has been eating indiscriminately. His last complete blood work for cholesterol was done in June so he does not need any blood work right now. COUNTS INCLUDE 234 BEDS AT THE [facility] Medical History AAA (abdominal aortic aneurysm) Alcohol abuse Carpal tunnel syndrome, left COPD (chronic obstructive pulmonary disease) Degenerative disc disease Gout Hypercholesterolemia Hypertension Hypothyroid Insomnia Overweight (BMI 25.0-29.9) PTSD (post-traumatic stress disorder) TIA (transient ischemic attack) Type 2 diabetes mellitus with hyperglycemia Surgical History History of colonoscopy History of lumbar fusion History of carpal tunnel release History of lumbar surgery H/O pelvic surgery Varicocele H/O left wrist surgery Family History Father CVD (cardiovascular disease) Cancer Mother Cancer Social History Housing: House Alcohol intake: current Alcohol intake frequency: a few times a month Patient Tobacco Use Status: Former Tobacco user Tobacco use type: Cigarette e-Cigarette/Vaping Use: Never Used Second Hand Smoke Exposure: No service: Yes Current occupational status: retired Cognitive needs: No Hearing needs: No Vision needs: Yes Questionnaire Thrive Questionnaire Date Thrive assessed: 09/28/22 RACHEL-7 AMB Questionnaire RACHEL-7 Date RACHEL - 7 assessed: 10/11/22 Source: Developed by Drs. Vicente Rocha, Tessa Mantilla, Marcelo Jacobson and colleagues, with an educational leeann from [employer]. Physical exam (Primary Care) Vital Signs: Last Vital Signs Pulse 68 02/08/23 15:28 BP 160/98 H 02/08/23 15:28 Pulse Ox 98 02/08/23 15:28 Oxygen Delivery Method Room Air 02/08/23 15:28 BMI result Body Mass Index 28.9 Tobacco/Smoking Status: Tobacco use Status Tobacco use date assessed 09/28/22 02/08/23 15:32 Patient Tobacco Use Status Former Tobacco user 02/08/23 15:32 Tobacco use type Cigarette 02/08/23 15:32 e-Cigarette/Vaping Use Never Used 02/08/23 15:32 Thrive Assessment: Date of Thrive Assessment Date Thrive assessed 09/28/22 02/08/23 15:32 Const General: alert; No acute distress Eyes Conjunctivae: conjunctivae normal Resp Auscultation: clear to auscultation bilaterally Cardio Rate: regular rate Rhythm: regular rhythm GI Inspection: Yes normal to inspection Extrem General: Yes normal to inspection and No edema Results AMB Hemoglobin A1c AMB Hemoglobin A1c 7.4 % Last Edit by Jerica Barragan on 02/08/23 15:42 Results Reviewed Results Reviewed: Laboratory Last Values Hgb A1c (Clinic) 7.4 % (4.0-6.0) H 02/08/23 15:28 Assessment and Plan Assessment & Plan (1) Type 2 diabetes mellitus with hyperglycemia: Code(s): E11.65 - Type 2 diabetes mellitus with hyperglycemia Qualifiers: Diabetes mellitus halfway insulin use: without halfway use Qualified Code(s): E11.65 - Type 2 diabetes mellitus with hyperglycemia Plan: Decrease the amount of carbohydrate intake, pasta, bread, rice and potatoes are all sugar and that is aside from all the sweet stuff, remember that fruits are good but they are Sweet also. Hemoglobin A1c goal of less than 7.0 patient is on diet control right now. due to circumstances will monitor for now (2) Hypertension: Code(s): I10 - Essential (primary) hypertension Qualifiers: Hypertension type: essential hypertension Qualified Code(s): I10 - Essential (primary) hypertension Plan: Continue with blood pressure medication. Decrease salt intake and exercise patient takes lisinopril 40 mg once a day- will advised to monitor (3) Hypothyroid: Code(s): E03.9 - Hypothyroidism, unspecified Qualifiers: Hypothyroidism type: acquired Qualified Code(s): E03.9 - Hypothyroidism, unspecified Plan: Continue with thyroid medication. January blood work within normal limits (4) Hypercholesterolemia: Code(s): E78.00 - Pure hypercholesterolemia, unspecified Plan: Avoid fried foods, chicken skin, eggs, butter margarine, pastries and meat. Be it pork or beef they have a lot of cholesterol LDL goal of less than 130 and triglyceride of less than 150. Patient on atorvastatin 20 and fenofibrate 160 mg once a day. Blood work done in June 2022 (5) COPD (chronic obstructive pulmonary disease): Code(s): J44.9 - Chronic obstructive pulmonary disease, unspecified Qualifiers: COPD type: emphysema Emphysema type: unspecified Qualified Code(s): J43.9 - Emphysema, unspecified Plan: Stable Orders: Orders AMB Hemoglobin A1c Today I10 - Essential (primary) hypertension Coding Level of Care Code Tele Est Pt Level 4 (74134) Diagnoses Type 2 diabetes mellitus with hyperglycemia, without long-term current use of insulin E11.65 Diabetes mellitus halfway insulin use: without halfway use Essential hypertension I10 Hypertension type: essential hypertension Acquired hypothyroidism E03.9 Hypothyroidism type: acquired Hypercholesterolemia E78.00 Pulmonary emphysema, unspecified emphysema type J43.9 COPD type: emphysema Emphysema type: unspecified
[2023-02-08 15:28] VITALS: BP 160/98; PULSE 68; O2SAT 98; BMI 28.9
[2023-02-08 16:12] VITALS: BP 144/90
== END 2023-02-08 16:19 | disposition home or self-care (01) ==
PROVIDERS: PCP Internal Medicine; Visit Provider Internal Medicine
DX: E11.65 Type 2 diabetes mellitus with hyperglycemia (principal); J43.9 Emphysema, unspecified; I10 Essential (primary) hypertension; E03.9 Hypothyroidism, unspecified; E78.00 Pure hypercholesterolemia, unspecified
CPT/HCPCS: 83036; 99214

== ENCOUNTER 2023-03-28 12:39 | Outpatient (AMB) | payer MEDICARE, SELFPAY ==
[2023-03-28 12:45] VITALS: BP 154/76; PULSE 75; O2SAT 95; BMI 29.0
--- NOTE | 2023-03-28 12:45 | MHC.PC.OV ---
Vital Signs 03/28/23 12:45 Height 5 ft 10 in Weight 202 lb 2 oz BMI 29.0 BP 154/76 H Blood Pressure Location Lt brachial Position Sitting Pulse 75 Pulse Source Pulse Oximeter Pulse Oximetry (%) 95 Oxygen Delivery Method Room Air Intake Visit Reasons: Cataract surgery 04/05/23 RT eye 04/16/23 LT eye Intake Note: Patient is here for a Pre-op for Cataract surgery of right eye on 04/05/23 and the left eye on 04/16/[address] Castillo. . Electronic Device Repairer Required: No Accompanied by: Self / Same As Patient Allergies hydromorphone [Dilaudid] Adverse Reaction (Unknown, Verified 03/28/23 13:18) Unknown Medication List - Last Reconciled 03/28/23 by Kyaw Dooley PA-C aspirin (Adult Aspirin Regimen) 81 mg PO DAILY atorvastatin 20 mg PO DAILY cholecalciferol (vitamin D3) 25 mcg PO DAILY colchicine 0.6 mg PO DAILY fenofibrate 160 mg PO DAILY levothyroxine 88 mcg PO QAM 90 days lisinopril 40 mg PO DAILY tramadol 1-2 tablets PO every 6 to 8 hours; 30 days Tobacco use date assessed: 03/28/23 Fall risk assessment: No Falls in past year Last assessed Fall Risk: 03/28/23 Dental Screening Dental Screen Date: 03/28/23 Did you have a dental visit in the last 12 months?: No Did you have a dental problem in the last 6 months where you did not have access to dental care?: No Was dental information given to patient?: Patient declined HPI Cataract surgery 04/05/23 RT eye 04/16/23 LT eye HPI Details Patient is an 82-year-old male here today for preop visit. He is due for bilateral cataract removal next month. Patient has a past medical history significant for hypertension, hyperlipidemia, COPD, type 2 diabetes. .. Hypertension: Blood pressure noted today slightly elevated. He does report being under lot of stress as of late due to family issues and recent deaths in the family. He reports his blood pressures are usually good on current dose of lisinopril. Laboratory Tests 09/28/22 02/05/23 02/08/23 16:11 13:42 15:28 Hgb A1c (Clinic) 6.6 H 7.4 H TSH 3.64 PFSH Medical History AAA (abdominal aortic aneurysm) Alcohol abuse Carpal tunnel syndrome, left COPD (chronic obstructive pulmonary disease) Degenerative disc disease Gout Hypercholesterolemia Hypertension Hypothyroid Insomnia Overweight (BMI 25.0-29.9) PTSD (post-traumatic stress disorder) TIA (transient ischemic attack) Type 2 diabetes mellitus with hyperglycemia Surgical History History of colonoscopy History of lumbar fusion History of carpal tunnel release History of lumbar surgery H/O pelvic surgery Varicocele H/O left wrist surgery Family History Father CVD (cardiovascular disease) Cancer Mother Cancer Social History Housing: House Alcohol intake: current Alcohol intake frequency: a few times a month Patient Tobacco Use Status: Former Tobacco user Tobacco use type: Cigarette e-Cigarette/Vaping Use: Never Used Second Hand Smoke Exposure: No service: Yes Current occupational status: retired Cognitive needs: No Hearing needs: No Vision needs: Yes Questionnaire PHQ-9 Over the last 2 weeks, how often have you been bothered by any of the following problems? 1. Little interest or pleasure in doing things: not at all 2. Feeling down, depressed, or hopeless: not at all 3. Trouble falling or staying asleep, or sleeping too much: not at all 4. Feeling tired or having little energy: not at all 5. Poor appetite or overeating: not at all 6. Feeling bad about yourself - or that you are a failure or have let yourself or your family down: not at all 7. Trouble concentrating on things, such as reading the newspaper or watching television: not at all 8. Moving or speaking so slowly that other people could have noticed. Or the opposite - being so fidgety or restless that you have been moving around a lot more than usual: not at all 9. Thoughts that you would be better off or of hurting yourself in some way: not at all Total score: 0 Depression Screening Interpretation: Negative Depression Screening Done: Yes 56425 - PHQ-9 Billing: Yes Source: Developed by Drs. Vicente Rocha, Marcelo Whitaker and colleagues, with an educational leeann from [employer]. Thrive Questionnaire Date Thrive assessed: 03/28/23 I am a: Patient What is your living situation today?: I have a steady place to live Within the past 12 months, did the food you bought not last and you didn't have the money to get more?: Never true Within the past 12 months, did you worry whether your food would run out before you got money to buy more?: Never true Do you have trouble paying for medicines?: No Do you have trouble getting transportation to medical appointments?: No Do you have trouble paying your heating and electricity bill?: No Do you have trouble taking care of your child, family member or friend?: No Do you have trouble with day-to-day activities such as bathing, preparing meals, shopping, managing finances, etc.?: No Are you currently unemployed and looking for a job?: No Are you interested in more education?: No Please select the resources that you would like help with: None AUDIT C Alcohol Use Questionnaire (AUDIT-C) 1. How often do you have a drink containing alcohol?: Monthly or less 2. How many drinks containing alcohol do you have on a typical day when you are drinking?: 1 or 2 3. How often do you have six or more drinks on one occasion?: Less than monthly Total Score: 2 Score Reviewed/Action Taken: No RACHEL-7 AMB Questionnaire RACHEL-7 Date RACHEL - 7 assessed: 03/28/23 Feeling nervous, anxious, or on edge: 0 = Not at all Not being able to stop or control worryin = Not at all Worrying too much about different things: 0 = Not at all Trouble relaxin = Not at all Being so restless that it is hard to sit still: 0 = Not at all Becoming easily annoyed or irritable: 0 = Not at all Feeling afraid as if something awful might happen: 0 = Not at all Total RACHEL-7 score (0-4 normal; 5-9 mild; 10-14 moderate; 15-21 severe): 0 Source: Developed by Drs. Vicente Rocha, Marcelo Whitaker and colleagues, with an educational leeann from [employer]. RACHEL-7 Assessment Billing RACHEL-7 Assessment Tool: RACHEL-7 Assessment 01533 Review of Systems Const Denies headache(s) Eyes Denies loss of vision ENT Denies vertigo, Denies dizziness, Denies headache(s) and Denies sore throat Card Denies chest pain, Denies leg edema and Denies lightheadedness Resp Denies cough, Denies hemoptysis and Denies wheezing GI Denies abdominal pain, Denies melena, Denies constipation, Denies diarrhea and Denies vomiting Denies dysuria, Denies urinary frequency and Denies urinary urgency Musc Denies arthralgias, Denies joint swelling, Denies numbness and Denies tingling Neuro Denies Abnormal speech present, Denies behavioral changes, Denies vertigo, Denies dizziness, Denies headache(s), Denies loss of vision, Denies memory loss, Denies numbness and Denies tingling Psych Denies anxiety, Denies behavioral changes, Denies depression, Denies memory loss and Denies panic attacks Gui/Lymph Denies easy bleeding and Denies easy bruising Aller/Immun Denies wheezing Physical exam (Primary Care) Vital Signs: Last Vital Signs Pulse 75 03/28/23 12:45 BP 154/76 H 03/28/23 12:45 Pulse Ox 95 03/28/23 12:45 Oxygen Delivery Method Room Air 03/28/23 12:45 BMI result Body Mass Index 29.0 Tobacco/Smoking Status: Tobacco use Status Tobacco use date assessed 03/28/23 03/28/23 12:53 Patient Tobacco Use Status Former Tobacco user 03/28/23 12:53 Tobacco use type Cigarette 03/28/23 12:53 e-Cigarette/Vaping Use Never Used 03/28/23 12:53 PHQ-9: PHQ-9 Score PHQ-9: Total score 0 03/28/23 12:53 Depression Screening Interpretation: Negative Thrive Assessment: Date of Thrive Assessment Date Thrive assessed 03/28/23 03/28/23 12:53 Const General: healthy appearing, no acute distress, alert and awake Nutritional Appearance: well nourished Orientation/consciousness: oriented to person, oriented to place and oriented to time HENMT Ears: TM's normal bilaterally General nose exam: Normal nasal mucous membranes and turbinates present Eyes Conjunctivae: conjunctivae normal Sclerae: sclerae normal Pupils: Equal, round and reactive pupils present Neck Neck: Yes no lymphadenopathy and Yes no JVD Thyroid: Thyroid normal Carotids: no bruits Resp Effort & Inspection: normal respiratory effort and not tachypneic Auscultation: no crackles, no rales, no rhonchi and no wheezes Cardio Rate: regular rate Rhythm: regular rhythm Heart sounds: no murmurs and normal S1 and S2 GI Palpation (GI): Soft to palpation, nontender, no hepatomegaly and no splenomegaly Auscultation: normal bowel sounds Skin General skin exam: no rashes or lesions noted and dry skin Neuro General: oriented to person, oriented to place and oriented to time Cranial nerves: Yes Equal, round and reactive pupils present Speech: No Abnormal speech present Gait exam (Neuro): Normal gait present Motor exam (neuro): no tremor noted Extrem Right upper extremity: full ROM Left upper extremity: full ROM Right lower extremity: full ROM; no edema Left lower extremity: full ROM; no edema Psych Mental Status: mental status grossly normal Speech and movement: Normal speech and movement present Affect: normal affect Attitude: cooperative Thought process: Normal thought process present Assessment and Plan Assessment & Plan (1) Pre-op evaluation: Code(s): Z01.818 - Encounter for other preprocedural examination Plan: Patient's most recent labs and vitals are stable. Blood pressure slightly elevated today in office and he he has been of stress due to family issues lately. He reports blood pressures usually lower. Otherwise asymptomatic. Patient medically clear for needed bilateral cataract removal. (2) Cataract: Code(s): H26.9 - Unspecified cataract Qualifiers: Cataract type: age-related Laterality: bilateral Age-related cataract type: unspecified Qualified Code(s): H25.9 - Unspecified age-related cataract Plan: As above (3) Hypertension: Code(s): I10 - Essential (primary) hypertension Qualifiers: Hypertension type: essential hypertension Qualified Code(s): I10 - Essential (primary) hypertension Plan: Blood pressure slightly elevated today in office. Has no symptoms of chest discomfort, dizziness or headaches. He does report being under lot of stress as of late due to few deaths that have happened in his family. Advised to continue monitoring blood pressure at home with goal blood pressure to be below 140/90 (4) Type 2 diabetes mellitus with hyperglycemia: Code(s): E11.65 - Type 2 diabetes mellitus with hyperglycemia Qualifiers: Diabetes mellitus penitentiary insulin use: without assistant terminal manager use Qualified Code(s): E11.65 - Type 2 diabetes mellitus with hyperglycemia Plan: Type 2 diabetes has been suboptimally controlled, has been managing his diabetes with diet control. Coding Level of Care Code Est Pt Level 4 (54365) Diagnoses Pre-op evaluation Z01.818 Age-related cataract of both eyes, unspecified age-related cataract type H25.9 Cataract type: age-related Laterality: bilateral Age-related cataract type: unspecified Essential hypertension I10 Hypertension type: essential hypertension Type 2 diabetes mellitus with hyperglycemia, without long-term current use of insulin E11.65 Diabetes mellitus penitentiary insulin use: without penitentiary use Additional Codes RACHEL-7 Assessment Billing - RACHEL-7 Assessment Tool: RACHEL-7 Assessment [id number] ([id number])
== END 2023-03-28 13:34 | disposition home or self-care (01) ==
PROVIDERS: PCP Internal Medicine; Visit Provider Physician Assistant
DX: H25.9 Unspecified age-related cataract (principal); E11.65 Type 2 diabetes mellitus with hyperglycemia; Z01.818 Encounter for other preprocedural examination; I10 Essential (primary) hypertension
CPT/HCPCS: 99214

== ENCOUNTER 2023-05-14 12:52 | Outpatient (AMB) | payer MEDICARE, SELFPAY ==
--- NOTE | 2023-05-14 12:56 | A.OFFPC_ITS ---
Vital Signs 05/14/23 12:58 Height 5 ft 10 in Weight 203 lb 2 oz BMI 29.1 BP 130/70 Blood Pressure Location Lt brachial Position Sitting Pulse 63 Pulse Source Pulse Oximeter Pulse Oximetry (%) 97 Oxygen Delivery Method Room Air Intake Visit Reasons: DM Intake Note: Patient is here to follow up on DM. 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 Analyst: Not Required per policy Accompanied by: Self / Same As Patient Allergies hydromorphone [Dilaudid] Adverse Reaction (Unknown, Verified 05/14/23 12:57) Unknown Tobacco use date assessed: 05/14/23 Fall risk assessment: No Falls in past year Last assessed Fall Risk: 05/14/23 Dental Screening Dental Screen Date: 05/14/23 Did you have a dental visit in the last 12 months?: No Did you have a dental problem in the last 6 months where you did not have access to dental care?: No Was dental information given to patient?: No HPI DM HPI Details 82-year-old overweight male with uncontr olled diabetes mellitus hypertension hypercholesterolemia hypothyroid and COPD last seen in January 2023. Patient was seen by the nurse practitioner in March for preop for cataract surgery 04/05, R 04/16/2023 L - will be ff up with Eye and lasik . . Patient relates to me that nephew is very sick and that he will be flying to [place] in 10 days but a one-way ticket and not sure when coming back. Patient has been alone and has been eating indiscriminately hands the high sugars but he is going to be going to [place] and states he is going to be eating better. Discussed about the blood work that needs to be done but patient is unsure presently on when he is coming back. PFSH Medical History TIA (transient ischemic attack) Hypercholesterolemia COPD (chronic obstructive pulmonary disease) Carpal tunnel syndrome, left Hypothyroid Type 2 diabetes mellitus with hyperglycemia PTSD (post-traumatic stress disorder) AAA (abdominal aortic aneurysm) Gout Hypertension Overweight (BMI 25.0-29.9) Degenerative disc disease Insomnia Alcohol abuse Surgical History (Updated 05/14/23 @ 13:09 by JOSHUA Sebastian) History of cataract surgery History of colonoscopy History of lumbar fusion History of carpal tunnel release History of lumbar surgery H/O pelvic surgery Varicocele H/O left wrist surgery Family History Father CVD (cardiovascular disease) Cancer Mother Cancer Social History Housing: House Alcohol intake: current Alcohol intake frequency: holidays/special occasions only Patient Tobacco Use Status: Former Tobacco user Tobacco use type: Cigarette e-Cigarette/Vaping Use: Never Used Second Hand Smoke Exposure: No service: Yes Current occupational status: retired Cognitive needs: No Hearing needs: No Vision needs: Yes Questionnaire Thrive Questionnaire Date Thrive assessed: 03/28/23 RACHEL-7 AMB Questionnaire RACHEL-7 Date RACHEL - 7 assessed: 03/28/23 Source: Developed by Drs. Vicente Rocha, Tessa Mantilla, Marcelo Jacobson and colleagues, with an educational leeann from [employer]. Physical exam (Primary Care) Vital Signs: Last Vital Signs Pulse 63 05/14/23 12:58 BP 130/70 05/14/23 12:58 Pulse Ox 97 05/14/23 12:58 Oxygen Delivery Method Room Air 05/14/23 12:58 BMI result Body Mass Index 29.1 Tobacco/Smoking Status: Tobacco use Status Tobacco use date assessed 05/14/23 05/14/23 13:11 Patient Tobacco Use Status Former Tobacco user 05/14/23 13:11 Tobacco use type Cigarette 05/14/23 13:11 e-Cigarette/Vaping Use Never Used 05/14/23 13:11 Thrive Assessment: Date of Thrive Assessment Date Thrive assessed 03/28/23 05/14/23 13:11 Const General: alert; No acute distress Eyes Conjunctivae: conjunctivae normal Resp Auscultation: clear to auscultation bilaterally Cardio Rate: regular rate Rhythm: regular rhythm GI Inspection: Yes normal to inspection Extrem General: Yes normal to inspection and No edema Results AMB Hemoglobin A1c AMB Hemoglobin A1c 10.2 % Last Edit by JOSHUA Sebastian on 05/14/23 13:1 4 Assessment and Plan Assessment & Plan (1) Type 2 diabetes mellitus with hyperglycemia: Code(s): E11.65 - Type 2 diabetes mellitus with hyperglycemia Qualifiers: 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 Presently diet controlled reminded about Ophthalmology PAtient declines med and wants to eat better. (2) Hypertension: Code(s): I10 - Essential (primary) hypertension Qualifiers: Hypertension type: essential hypertension Qualified Code(s): I10 - Essential (primary) hypertension Plan: Continue with blood pressure medication. Decrease salt intake and exercise presently on lisinopril 40 mg once a day (3) Hypercholesterolemia: Code(s): E78.00 - Pure hypercholesterolemia, unspecified Plan: Avoid fried foods, chicken skin, eggs, butter margarine, pastries and meat. Be it pork or beef they have a lot of cholesterol LDL goal of less than 100 and triglyceride of less than 150 patient needs blood work (4) Hypothyroid: Code(s): E03.9 - Hypothyroidism, unspecified Qualifiers: Hypothyroidism type: acquired Qualified Code(s): E03.9 - Hypothyroidism, unspecified Plan: Continue with thyroid medication (5) COPD (chronic obstructive pulmonary disease): Code(s): J44.9 - Chronic obstructive pulmonary disease, unspecified Qualifiers: COPD type: emphysema Emphysema type: unspecified Qualified Code(s): J43.9 - Emphysema, unspecified Plan: Stable Orders: Orders AMB Hemoglobin A1c Today E11.65 - Type 2 diabetes mellitus with hyperglycemia Complete Blood Count Auto Diff 3 Months E11.65 - Type 2 diabetes mellitus with hyperglycemia Thyroid Stimulating Hormone 3 Months E11.65 - Type 2 diabetes mellitus with hyperglycemia Microalbumin, Random (w Creat) 3 Months E11.65 - Type 2 diabetes mellitus with hyperglycemia Creatinine Urine 3 Months E11.65 - Type 2 diabetes mellitus with hyperglycemia Vitamin B12 and Folate 3 Months E11.65 - Type 2 diabetes mellitus with hyperglycemia Hemoglobin A1c 3 Months E11.65 - Type 2 diabetes mellitus with hyperglycemia Comprehensive Met. Panel 3 Months E11.65 - Type 2 diabetes mellitus with hyperglycemia Free T4 (Free Thyroxine) 3 Months E11.65 - Type 2 diabetes mellitus with hyperglycemia Lipid Panel 3 Months E11.65 - Type 2 diabetes mellitus with hyperglycemia, E78.00 - Pure hypercholesterolemia, unspecified Medications: Refilled atorvastatin 20 mg PO DAILY 30 tabs 5RF E78.00 - Pure hypercholesterolemia, unspecified levothyroxine 88 mcg PO QAM 90 days 90 tabs 2RF E03.9 - Hypothyroidism, unspecified fenofibrate 160 mg PO DAILY 90 tabs 2RF E11.65 - Type 2 diabetes mellitus with hyperglycemia lisinopril 40 mg PO DAILY 90 tabs 2RF E11.65 - Type 2 diabetes mellitus with hyperglycemia atorvastatin 20 mg PO DAILY 90 tabs 2RF E78.00 - Pure hypercholesterolemia, unspecified Coding Level of Care Code Est Pt Level 4 (24146) Diagnoses Type 2 diabetes mellitus with hyperglycemia, without long-term current use of insulin .65 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
[2023-05-14 12:58] VITALS: BP 130/70; PULSE 63; O2SAT 97; BMI 29.1
== END 2023-05-14 13:27 | disposition home or self-care (01) ==
PROVIDERS: PCP Internal Medicine; Visit Provider Internal Medicine
DX: E11.65 Type 2 diabetes mellitus with hyperglycemia (principal); J43.9 Emphysema, unspecified; I10 Essential (primary) hypertension; E78.00 Pure hypercholesterolemia, unspecified; E03.9 Hypothyroidism, unspecified
CPT/HCPCS: 83036; 99214

== ENCOUNTER 2023-09-28 09:04 | Outpatient (REF) | payer MEDICARE, SELFPAY ==
[2023-09-28 09:36] LABS: MANUAL DIFF FLAG NO
[2023-09-28 10:34] LABS: Basophils Absolute Auto 0.1 X10*3/uL (0.0-0.2); Basophils Percent Auto 1.6 % (0-2); Eosinophils Absolute Auto 0.3 X10*3/uL (0.0-0.4); Eosinophils Percent Auto 5.9 % (0-4); Hematocrit 42.1 % (42.0-52.0); Hemoglobin 14.1 g/dl (14.0-18.0); Imm Gran Abs Auto 0.04 X10*3/uL (0.00-0.03); Imm Gran Pct Auto 0.7 % (0.0-0.4); Lymphocytes Absolute Auto 1.7 X10*3/uL (1.2-4.9); Lymphocytes Percent Auto 29.2 % (20-40); Mean Corpuscular HGB Conc 33.5 g/dl (31.0-36.0); Mean Corpuscular Hemoglobin 30.9 pg (27.0-33.0); Mean Corpuscular Volume 92.3 fL (80.0-98.0); Monocytes Absolute Auto 0.7 X10*3/uL (0.1-1.2); Monocytes Percent Auto 12.8 % (2-11); Neutrophils Absolute Auto 2.9 x10*3/uL (2.0-8.3); Neutrophils Percent Auto 49.8 % (45-73); Platelet Count 165 X10*3/uL (160-400); Red Blood Count 4.56 X10*6/uL (4.60-5.80); Red Cell Distribution Width 12.9 % (11.0-16.0); White Blood Count 5.8 X10*3/uL (4.8-10.8)
[2023-09-28 13:02] LABS: Folate 10.2 ng/mL (> or = 4.0); Vitamin B12 303 pg/mL (200-900)
[2023-09-28 15:00] LABS: Estimated Average Glucose 223 mg/dL; Hemoglobin A1c % 9.4 % (<6.0)
[2023-09-28 16:33] LABS: Creatinine Urine 79.78 mg/dL; Microalbum/Creatinine Ratio Ur 7.6 ug/mg cr (<30); Microalbumin Urine 6.1 mg/L
[2023-09-28 20:43] LABS: Alanine Aminotransferase 53 U/L (0-40); Albumin Level 4.2 g/dL (3.5-5.0); Alkaline Phosphatase 102 U/L (39-117); Anion Gap 15 (12-20); Aspartate Amino Transferase 52 U/L (5-37); Bilirubin Total 0.4 mg/dL (0.0-1.0); Blood Urea Nitrogen 22 mg/dL (9-16); Calcium 9.8 mg/dL (8.4-10.2); Carbon Dioxide 21 mmol/L (22-29); Chloride 107 mmol/L (96-108); Cholesterol 153 mg/dL (<200); Estimated Glomerular Filt Rate 60; Free T4 (Free Thyroxine) 0.92 ng/dL (0.71-1.85); Glucose Random 184 mg/dL (60-115); HDL Cholesterol 32 mg/dL (>40); LDL Cholesterol Calculated 82 mg/dL (<100); Potassium 4.7 mmol/L (3.3-5.1); Sodium 138 mmol/L (135-145); Triglycerides 198 mg/dL (<150)
== END 2023-09-28 09:05 | disposition home or self-care (01) ==
LOC: HO.LAB 09:04
PROVIDERS: PCP Internal Medicine; Visit Provider Internal Medicine
DX: E11.65 Type 2 diabetes mellitus with hyperglycemia (principal); E78.00 Pure hypercholesterolemia, unspecified
CPT/HCPCS: 36415; 80053; 80061; 82043; 82570; 82607; 82746; 83036; 84439; 84443; 85025

== ENCOUNTER 2023-10-01 09:46 | Outpatient (AMB) | payer MEDICARE, SELFPAY ==
[2023-10-01 09:54] VITALS: BP 146/68; PULSE 61; O2SAT 98; BMI 28.3
--- NOTE | 2023-10-01 09:54 | A.OFFPC_ITS ---
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 stressed another in the family. knows now to take thyroid med seperately PFSH Medical History TIA (transient ischemic attack) Hypercholesterolemia COPD (chronic obstructive pulmonary disease) Carpal tunnel syndrome, left Hypothyroid Type 2 diabetes mellitus with hyperglycemia PTSD (post-traumatic stress disorder) AAA (abdominal aortic aneurysm) Gout Hypertension Overweight (BMI 25.0-29.9) Degenerative disc disease Insomnia Alcohol abuse Surgical History (Updated 05/14/23 @ 13:09 by JOSHUA Sebastian) History of cataract surgery History of colonoscopy History of lumbar fusion History of carpal tunnel release History of lumbar surgery H/O pelvic surgery Varicocele H/O left wrist surgery Family History Father CVD (cardiovascular disease) Cancer Mother Cancer Social History (Updated 05/14/23 @ 13:09 by JOSHUA Sebastian) Housing: House Alcohol intake: current Alcohol intake frequency: holidays/special occasions only Patient Tobacco Use Status: Former Tobacco user Tobacco use type: Cigarette e-Cigarette/Vaping Use: Never Used Second Hand Smoke Exposure: No service: Yes Current occupational status: retired Cognitive needs: No Hearing needs: No Vision needs: Yes Questionnaire Thrive Questionnaire Date Thrive assessed: 03/28/23 AUDIT C Alcohol Use Questionnaire (AUDIT-C) 1. How often do you have a drink containing alcohol?: Monthly or less 2. How many drinks containing alcohol do you have on a typical day when you are drinking?: 1 or 2 3. How often do you have six or more drinks on one occasion?: Less than monthly Total Score: 2 Score Reviewed/Action Taken: No RACHEL-7 AMB Questionnaire RACHEL-7 Date RACHEL - 7 assessed: 03/28/23 Source: Developed by Drs. Vicente Rocha, Tessa Mantilla, Marcelo Jacobson and colleagues, with an educational leeann from [employer]. Physical exam (Primary Care) Vital Signs: Last Vital Signs Pulse 61 10/01/23 09:54 BP 146/68 H 10/01/23 09:54 Pulse Ox 98 10/01/23 09:54 Oxygen Delivery Method Room Air 10/01/23 09:54 BMI result Body Mass Index 28.3 Tobacco/Smoking Status: Tobacco use Status Tobacco use date assessed 05/14/23 10/01/23 09:58 Patient Tobacco Use Status Former Tobacco user 10/01/23 09:58 Tobacco use type Cigarette 10/01/23 09:58 e-Cigarette/Vaping Use Never Used 10/01/23 09:58 Thrive Assessment: Date of Thrive Assessment Date Thrive assessed 03/28/23 10/01/23 09:58 Const General: alert; No acute distress Eyes Conjunctivae: conjunctivae normal Resp Auscultation: clear to auscultation bilaterally Cardio Rate: regular rate Rhythm: regular rhythm GI Inspection: Yes normal to inspection Extrem General: Yes normal to inspection and No edema Assessment and Plan Assessment & Plan (1) Type 2 diabetes mellitus with hyperglycemia: Comment: [facility] exam Code(s): E11.65 - Type 2 diabetes mellitus with hyperglycemia Qualifiers: 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 Hemoglobin A1c goal of less than 7.0. Patient on no medication presently (2) Hypothyroid: Code(s): E03.9 - Hypothyroidism, unspecified Qualifiers: Hypothyroidism type: acquired Qualified Code(s): E03.9 - Hypothyroidism, unspecified Plan: Continue with thyroid medication continue to monitor blood work. take synthroid seperately and retest in 3 months (3) Hypertension: Code(s): I10 - Essential (primary) hypertension Qualifiers: Hypertension type: essential hypertension Qualified Code(s): I10 - Essential (primary) hypertension Plan: Continue with blood pressure medication. Decrease salt intake and exercise on lisinopril 40 mg once a day (4) COPD (chronic obstructive pulmonary disease): Code(s): J44.9 - Chronic obstructive pulmonary disease, unspecified Qualifiers: COPD type: emphysema Emphysema type: unspecified Qualified Code(s): J43.9 - Emphysema, unspecified Plan: Stable (5) Hypercholesterolemia: Code(s): E78.00 - Pure hypercholesterolemia, unspecified Plan: Avoid fried foods, chicken skin, eggs, butter margarine, pastries and meat. Be it pork or beef they have a lot of cholesterol LDL goal of less than 100 and triglyceride of less than 150 on fenofibrate and atorvastatin 20 mg once a day Medications: New metformin 500 mg PO BIDWMEAL 60 tabs 2RF E11.65 - Type 2 diabetes mellitus with hyperglycemia amlodipine 2.5 mg PO DAILY 30 tabs 4RF I10 - Essential (primary) hypertension Coding Level of Care Code Est Pt Level 4 (37636) Diagnoses Type 2 diabetes mellitus with hyperglycemia, without long-term current use of in sulin E11.65 Diabetes mellitus director long term care insulin use: without half-way use Acquired hypothyroidism E03.9 Hypothyroidism type: acquired Essential hypertension I10 Hypertension type: essential hypertension Pulmonary emphysema, unspecified emphysema type J43.9 COPD type: emphysema Emphysema type: unspecified Hypercholesterolemia E78.00
== END 2023-10-01 10:41 | disposition home or self-care (01) ==
PROVIDERS: PCP Internal Medicine; Visit Provider Internal Medicine
DX: E11.65 Type 2 diabetes mellitus with hyperglycemia (principal); J43.9 Emphysema, unspecified; E03.9 Hypothyroidism, unspecified; I10 Essential (primary) hypertension; E78.00 Pure hypercholesterolemia, unspecified
CPT/HCPCS: 99214

== ENCOUNTER 2023-10-24 12:45 | Outpatient (AMB) | payer MEDICARE, SELFPAY ==
[2023-10-24 13:18] VITALS: BP 136/72; PULSE 63; O2SAT 95; BMI 28.1
--- NOTE | 2023-10-24 13:18 | A.OFFVIS_ITS ---
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 Required: No Accompanied by: Self / Same As Patient Allergies hydromorphone [Dilaudid] Adverse Reaction (Unknown, Verified 10/24/23 13:18) Unknown Medication List - Last Reconciled 10/24/23 by Alan Garces MD amlodipine 2.5 mg PO DAILY aspirin (Adult Aspirin Regimen) 81 mg PO DAILY atorvastatin 20 mg PO DAILY cholecalciferol (vitamin D3) 25 mcg PO DAILY colchicine 0.6 mg PO DAILY fenofibrate 160 mg PO DAILY levothyroxine 88 mcg PO QAM 90 days lisinopril 40 mg PO DAILY metformin 500 mg PO BIDWMEAL tramadol 1-2 tablets PO every 6 to 8 hours; 30 days HPI SAWV HPI Details 83-year-old overweight male with a histo ry of diabetes mellitus hypothyroid hypertension COPD hypercholesterolemia last seen in 05/01/2023 patient is on here for annual well visit colonoscopy is up-to-date 04/2022 and no more. Review of the notes was seen by the vascular surgeon in 10/30/2023 for the abdominal aortic aneurysm 2.69 x 3.2 x 3.02 mid aorta previously 3 x 2.8 x 3 there is a bilobed abdominal aortic aneurysm in the distal are aorta 2.94 x 2.99 x 2.9 previously 3 x 2.8 x 3 so unchanged continue routine surveillance 18 months. Blood work done in 09/29/2023 having an hemoglobin A1c of 9.4 LDL noted to be 82. PFSH Medical History TIA (transient ischemic attack) Hypercholesterolemia COPD (chronic obstructive pulmonary disease) Carpal tunnel syndrome, left Hypothyroid Type 2 diabetes mellitus with hyperglycemia PTSD (post-traumatic stress disorder) AAA (abdominal aortic aneurysm) Gout Hypertension Overweight (BMI 25.0-29.9) Degenerative disc disease Insomnia Alcohol abuse Surgical History (Updated 05/14/23 @ 13:09 by JOSHUA Sebastian) History of cataract surgery History of colonoscopy History of lumbar fusion History of carpal tunnel release History of lumbar surgery H/O pelvic surgery Varicocele H/O left wrist surgery Family History Father CVD (cardiovascular disease) Cancer Mother Cancer Social History (Updated 10/24/23 @ 13:55 by Alan Garces MD) Housing: House Alcohol intake: current Alcohol intake frequency: holidays/special occasions only Comment: Q 2 week 1 beer Patient Tobacco Use Status: Former Tobacco user Tobacco use type: Cigarette Years Smoked: stopped 1976 e-Cigarette/Vaping Use: Never Used Second Hand Smoke Exposure: No service: Yes Current occupational status: retired Cognitive needs: No Hearing needs: No Vision needs: Yes Questionnaire Medicare Wellness Checkup What is your age?: 82 or older What gender do you identify with?: male During the past 4 weeks, how much have you been bothered by emotional problems such as feeling anxious, depressed, irritable, sad or downhearted, and blue?: not at all During the past 4 weeks, has your physical & emotional health limited your social activities with family, friends, neighbors, or groups?: not at all During the past 4 weeks, how much bodily pain have you generally had?: mild pain During the past 4 weeks, was someone available to help you if you needed & wanted help?: yes, as much as I wanted During the past 4 weeks, what was the hardest physical activity you could do for at least 2 minutes?: moderate Can you get to places out of walking distance without help? (For eg., can you travel alone on buses, taxis or drive your car?): Yes Can you go shopping for groceries or clothes without someone's help?: Yes Can you prepare your own meals?: Yes Can you do your housework without help?: Yes Because of any health problems, do you need the help of another person with your personal care needs such as eating, bathing, dressing or getting around the house?: No Can you handle your own money without help?: Yes During the past 4 weeks, how would you rate your health in general?: good During the past 4 weeks how have things been going for you?: pretty well Are you having difficulties driving your car?: no Do you always fasten your seat belt when you are in a car?: yes, usually During past 4 weeks, have you been bothered by the following: never: Falling or dizzy when standing up, Sexual problems?, Trouble eating well?, Teeth or denture problems?, Problems using the telephone? and Tiredness or fatigue? Have you fallen 2 or more times in the past year?: No Are you afraid of falling?: No Are you a smoker?: no During the past 4 weeks, how many drinks of wine, beer, or other alcoholic beverages did you have?: 1 drink or less per week Do you exercise for about 20 minutes 3 or more times a week?: yes, most of the time Have you been given information to help with the following?: yes: Hazards in your house that might hurt you? and yes: Keeping track of your medications? How often do you have trouble taking medicines the way you have been told to take them?: I always take medicine as prescribed How confident are you that you can control & manage most of your health problems?: very confident What is your race?: White PHQ-9 Over the last 2 weeks, how often have you been bothered by any of the following problems? 1. Little interest or pleasure in doing things: not at all 2. Feeling down, depressed, or hopeless: not at all 3. Trouble falling or staying asleep, or sleeping too much: not at all 4. Feeling tired or having little energy: not at all 5. Poor appetite or overeating: not at all 6. Feeling bad about yourself - or that you are a failure or have let yourself or your family down: not at all 7. Trouble concentrating on things, such as reading the newspaper or watching television: not at all 8. Moving or speaking so slowly that other people could have noticed. Or the opposite - being so fidgety or restless that you have been moving around a lot more than usual: not at all 9. Thoughts that you would be better off or of hurting yourself in some way : not at all Total score: 0 Depression Screening Interpretation: Negative Depression Screening Done: Yes 42341 - PHQ-9 Billing: Yes Source: Developed by Drs. Vicente Rocha, Tessa Mantilla, Marcelo Jacobson and colleagues, with an educational leeann from [employer]. Review of Systems Const Denies poor appetite and Denies weakness Eyes Denies no additional complaints ENT Reports Normal hearing present, Denies dizziness, Denies nasal congestion, Denies tinnitus and Denies sore throat Card Denies chest pain, Denies syncope, Denies rapid heart rate and Denies dyspnea Resp Denies cough and Denies dyspnea GI Denies change in stool character, Reports constipation, Denies diarrhea, Denies nausea and Denies vomiting Denies dysuria and Denies urinary frequency Neuro Reports Normal hearing present, Denies confusion, Denies dizziness, Denies syncope and Denies weakness Psych Denies confusion Physical Exam Vital Signs: Last Vital Signs Pulse 63 10/24/23 13:18 BP 136/72 10/24/23 13:18 Pulse Ox 95 10/24/23 13:18 Oxygen Delivery Method Room Air 10/24/23 13:18 BMI result Body Mass Index 28.1 Const General: No confusion Orientation/consciousness: No confusion HEENT Head: Yes normocephalic Ears: external ears normal and TM's normal bilaterally Face and sinus: Yes normal facial exam Mouth: moist mucous membranes Throat: Yes tonsils normal Eyes Conjunctivae: conjunctivae normal Pupils: Equal, round and reactive pupils present and Pupil accommodation reflex normal Direct Ophthalmoscopy: normal light reflex Neck Neck: No lymphadenopathy Thyroid: Thyroid normal Chest Chest palpation & inspection: normal inspection of the chest Resp Effort & Inspection: normal respiratory effort and no audible wheezes Auscultation: clear to auscultation bilaterally, no crackles, no wheezes and lung sounds not diminished Cardio Rate: regular rate Rhythm: regular rhythm Peripheral pulses: radial pulses present and dorsalis pedis present GI Other: guaiac negative mild prostate enlargement Palpation (GI): no masses Auscultation: normal bowel sounds and normoactive bowel sounds Male General Exam: Yes normal external exam Skin General skin exam: no rashes or lesions noted Rashes: no rashes Neuro General: No confusion Cranial nerves: Yes Equal, round and reactive pupils present and Yes Normal hearing present Cognition (Neuro): normal cognition Gait exam (Neuro): Normal gait present Motor exam (neuro): 5/5 motor strength present throughout Deep tendon reflexes (DTR's): Right brachioradialis reflex intensity grade: 2+, Left brachioradialis reflex intensity grade: 2+, Right patellar reflex intensity grade: 2+ and Left patellar reflex intensity grade: 2+ Extrem General: No edema Immunizations tetanus-diphtheria toxoids-Td 2 Lf unit-2 Lf unit/0.5 mL IM suspension Performing Provider: Alan Garces MD Performing Location: [facility] Administered by: Skylar Holliday CMA on 10/24/23 14:09 Dose Route Admin Location Dispensed Lot Number Expiration Date NDC Field Support Specialist 0.5 mL IM Left Deltoid 0.5 mL [id number] 04/21/24 [address]-1 [employer] VIS Given Date VIS Provided VIS Publication Date 10/24/23 Single Vaccine 20 Eligibility Eligibility Date Funding Source Not VFC Eligible 10/24/23 State funds Assessment & Plan Assessment & Plan (1) Medicare annual wellness visit, subsequent: Code(s): Z00.00 - Encounter for general adult medical examination without abnormal findings Plan: Patient is advised to eat healthy, keep well hydrated, keep active and have adequate sleep. 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 Hemoglobin C A1c goal of less than 7.0 patient is on metformin 500 mg twice a day only and declined any new medication (3) Hypothyroid: Code(s): E03.9 - Hypothyroidism, unspecified Qualifiers: Hypothyroidism type: acquired Qualified Code(s): E03.9 - Hypothyroidism, unspecified Plan: Continue with thyroid medication September 2023 last blood work (4) Hypertension: Code(s): I10 - Essential (primary) hypertension Qualifiers: Hypertension type: essential hypertension Qualified Code(s): I10 - Essential (primary) hypertension Plan: Continue with blood pressure medication. Decrease salt intake and exercise on amlodipine 2.5 mg once a day lisinopril 40 mg once a day (5) COPD (chronic obstructive pulmonary disease): Code(s): J44.9 - Chronic obstructive pulmonary disease, unspecified Qualifiers: COPD type: emphysema Emphysema type: unspecified Qualified Code(s): J43.9 - Emphysema, unspecified Plan: Stable and has not been requiring any inhaler (6) Hypercholesterolemia: Code(s): E78.00 - Pure hypercholesterolemia, unspecified Plan: Avoid fried foods, chicken skin, eggs, butter margarine, pastries and meat. Be it pork or beef they have a lot of cholesterol LDL goal of less than 100 and triglyceride of less than 150 on fenofibrate 160 mg once a day and atorvastatin 20 mg once a day (7) AAA (abdominal aortic aneurysm): Comment: 2012 3-3.2 cm, 2013 4.3, August 2015 3-3.3 for cm, January [address] Bains, July 2020 2.6 x 3 cm, September 2023 3 cm Code(s): I71.4 - Abdominal aortic aneurysm, without rupture Qualifiers: Presence of rupture: without rupture Qualified Code(s): I71.4 - Abdominal aortic aneurysm, without rupture Plan: Patient is being followed up by the vascular surgeon seen in 10/2023 and repeat surveillance in 18 months Orders: Orders Td State Immunization Today Z23 - Encounter for immunization Medications: New tetanus-diphtheria toxoids-Td 0.5 mL IM ONCE 0.5 mL 0RF Z23 - Encounter for immunization Quality Reporting (2019) Depression/Bipolar (159/160/161/177) PHQ-9: Total score: 0 Coding Level of Care Code Medicare Subsequent (G0439) Diagnoses Medicare annual wellness visit, subsequent Z00.00 Type 2 diabetes mellitus with hyperglycemia, without long-term current use of insulin E11.65 Diabetes mellitus half-way insulin use: without termite control servicer use Acquired hypothyroidism E03.9 Hypothyroidism type: acquired Essential hypertension I10 Hypertension type: essential hypertension Pulmonary emphysema, unspecified emphysema type J43.9 COPD type: emphysema Emphysema type: unspecified Hypercholesterolemia E78.00 Abdominal aortic aneurysm (AAA) without rupture I71.4 Presence of rupture: without rupture
== END 2023-10-24 14:17 | disposition home or self-care (01) ==
PROVIDERS: PCP Internal Medicine; Visit Provider Internal Medicine
DX: Z00.00 Encounter for general adult medical examination without abnormal findings (principal); E11.65 Type 2 diabetes mellitus with hyperglycemia; J43.9 Emphysema, unspecified; Z23 Encounter for immunization; I71.40 Abdominal aortic aneurysm, without rupture, unspecified; E03.9 Hypothyroidism, unspecified; I10 Essential (primary) hypertension; E78.00 Pure hypercholesterolemia, unspecified
CPT/HCPCS: 90471; 90714; G0439

== ENCOUNTER 2024-01-29 08:13 | Outpatient (REF) | payer MEDICARE, SELFPAY ==
[2024-01-29 09:38] LABS: Estimated Average Glucose 148 mg/dL; Hemoglobin A1C 187.0181 umol/L; Hemoglobin A1c % 6.8 % (<6.0); Total Hemoglobin (HGBA1C) 3706.5304 umol/L
[2024-01-29 10:55] LABS: Cholesterol 135 mg/dL (<200); Free T4 (Free Thyroxine) 1.02 ng/dL (0.71-1.85); HDL Cholesterol 34 mg/dL (>40); LDL Cholesterol Calculated 74 mg/dL (<100); Thyroid Stimulating Hormone 2.24 uIU/mL (0.32-4.0); Triglycerides 138 mg/dL (<150)
[2024-01-29 11:11] LABS: Creatinine Urine 81.21 mg/dL
== END 2024-01-29 08:14 | disposition home or self-care (01) ==
LOC: HO.LAB 08:13
PROVIDERS: PCP Internal Medicine; Visit Provider Internal Medicine
DX: E11.65 Type 2 diabetes mellitus with hyperglycemia (principal); E78.00 Pure hypercholesterolemia, unspecified; E03.9 Hypothyroidism, unspecified
CPT/HCPCS: 36415; 80061; 82570; 83036; 84439; 84443

== ENCOUNTER 2024-01-31 08:30 | Outpatient (AMB) | payer MEDICARE, SELFPAY ==
--- NOTE | 2024-01-31 08:33 | MHC.PC.OV ---
Vital Signs 01/31/24 08:34 Height 5 ft 10 in Weight 197 lb BMI 28.3 BP 144/78 H Blood Pressure Location Lt brachial Position Sitting Pulse 75 Pulse Source Pulse Oximeter Pulse Oximetry (%) 97 Oxygen Delivery Method Room Air Intake Visit Reasons: DM, HTN Allergies hydromorphone [Dilaudid] Adverse Reaction (Unknown, Verified 01/31/24 08:34) Unknown Tobacco use date assessed: 05/14/23 Fall risk assessment: No Falls in past year Last assessed Fall Risk: 01/31/24 Dental Screening Dental Screen Date: 05/14/23 HPI DM, HTN HPI Details 83 year old overweight male with DM., hypothyroid hypertension COPD hypercholesterolemia coming in for follow-up. Last seen in October 24 2023. Patient's colon test is up-to-date [facility] Medical History TIA (transient ischemic attack) Hypercholesterolemia COPD (chronic obstructive pulmonary disease) Carpal tunnel syndrome, left Hypothyroid Type 2 diabetes mellitus with hyperglycemia PTSD (post-traumatic stress disorder) AAA (abdominal aortic aneurysm) Gout Hypertension Overweight (BMI 25.0-29.9) Degenerative disc disease Insomnia Alcohol abuse Surgical History (Updated 05/14/23 @ 13:09 by JOSHUA Sebastian) History of cataract surgery History of colonoscopy History of lumbar fusion History of carpal tunnel release History of lumbar surgery H/O pelvic surgery Varicocele H/O left wrist surgery Family History Father CVD (cardiovascular disease) Cancer Mother Cancer Social History (Updated 10/24/23 @ 13:55 by Alan Garces MD) Housing: House Alcohol intake: current Alcohol intake frequency: holidays/special occasions only Comment: Q 2 week 1 beer Patient Tobacco Use Status: Former Tobacco user Tobacco use type: Cigarette Years Smoked: stopped 1976 e-Cigarette/Vaping Use: Never Used Second Hand Smoke Exposure: No service: Yes Current occupational status: retired Cognitive needs: No Hearing needs: No Vision needs: Yes Questionnaire PHQ-9 Over the last 2 weeks, how often have you been bothered by any of the following problems? 1. Little interest or pleasure in doing things: not at all 2. Feeling down, depressed, or hopeless: not at all 3. Trouble falling or staying asleep, or sleeping too much: not at all 4. Feeling tired or having little energy: not at all 5. Poor appetite or overeating: not at all 6. Feeling bad about yourself - or that you are a failure or have let yourself or your family down: not at all 7. Trouble concentrating on things, such as reading the newspaper or watching television: not at all 8. Moving or speaking so slowly that other people could have noticed. Or the opposite - being so fidgety or restless that you have been moving around a lot more than usual: not at all 9. Thoughts that you would be better off or of hurting yourself in some way: not at all Total score: 0 Depression Screening Interpretation: Negative Depression Screening Done: Yes 27311 - PHQ-9 Billing: Yes Source: Developed by Drs. Vicente Rocha, Tessa Mantilla, Marcelo Jacobson and colleagues, with an educational leeann from [employer]. Thrive Questionnaire Date Thrive assessed: 03/28/23 AUDIT C Alcohol Use Questionnaire (AUDIT-C) 1. How often do you have a drink containing alcohol?: Monthly or less 2. How many drinks containing alcohol do you have on a typical day when you are drinking?: 1 or 2 3. How often do you have six or more drinks on one occasion?: Less than monthly Total Score: 2 Score Reviewed/Action Taken: No RACHEL-7 AMB Questionnaire RACHEL-7 Date RACHEL - 7 assessed: 03/28/23 Source: Developed by Drs. Vicente Rocha, Tessa Mantilla, Marcelo Jacobson and colleagues, with an educational leeann from [employer]. Physical exam (Primary Care) Vital Signs: Last Vital Signs Pulse 75 01/31/24 08:34 BP 144/78 H 01/31/24 08:34 Pulse Ox 97 01/31/24 08:34 Oxygen Delivery Method Room Air 01/31/24 08:34 BMI result Body Mass Index 28.3 Tobacco/Smoking Status: Tobacco use Status Tobacco use date assessed 05/14/23 01/31/24 08:40 Patient Tobacco Use Status Former Tobacco user 01/31/24 08:40 Tobacco use type Cigarette 01/31/24 08:40 e-Cigarette/Vaping Use Never Used 01/31/24 08:40 PHQ-9: PHQ-9 Score PHQ-9: Total score 0 01/31/24 08:40 Depression Screening Interpretation: Negative Thrive Assessment: Date of Thrive Assessment Date Thrive assessed 03/28/23 01/31/24 08:40 Const General: alert; No acute distress Eyes Conjunctivae: conjunctivae normal Resp Auscultation: clear to auscultation bilaterally Cardio Rate: regular rate Rhythm: regular rhythm GI Inspection: Yes normal to inspection Extrem General: Yes normal to inspection and No edema Office Procedures Flu Questionnaire Does the patient have a severe egg allergy?: No Does the patient have severe life threatening allergies?: No Does the patient have a fever or illness today?: No Has the patient ever had Guillain-Carlyle Syndrome?: No Has the patient ever had any past reaction to a flu shot?: No Immunizations Fluarix Triv 8987-2039 (PF) 45 mcg (15 mcg x 3)/0.5 mL IM syringe Performing Provider: Alan Garces MD [facility] Administered by: Skylar Holliday CMA on 01/31/24 08:43 Dose Route Admin Location Dispensed Lot Number Expiration Date NDC Materials Planner 0.5 mL IM Left Deltoid 0.5 mL [id number] 09/08/24 40992-493-25 [place] [employer] VIS Given Date VIS Provided VIS Publication Date 01/31/24 Single Vaccine 20 Eligibility Eligibility Date Funding Source Not [facility] Eligible 01/31/24 Private Coding Level of Care Code Est Pt Level 4 (56576) Diagnoses Type 2 diabetes mellitus with hyperglycemia, without long-term current use of insulin E11.65 Diabetes mellitus care home insulin use: without care home use Essential hypertension I10 Hypertension type: essential hypertension Acquired hypothyroidism E03.9 Hypothyroidism type: acquired Pulmonary emphysema, unspecified emphysema type J43.9 COPD type: emphysema Emphysema type: unspecified Hypercholesterolemia E78.00 Additional Codes PHQ-9 - 11988 - PHQ-9 Billing: Yes ([id number]) Assessment & Plan Assessment & Plan (1) Type 2 diabetes mellitus with hyperglycemia: Comment[facility] [place] Code(s): E11.65 - Type 2 diabetes mellitus with hyperglycemia Category: Medical Qualifiers: Diabetes mellitus care home insulin use: without termite control representative use Qualified Code(s): E11.65 - Type 2 diabetes mellitus with hyperglycemia Plan: Decrease the amount of carbohydrate intake, pasta, bread, rice and potatoes are all sugar and that is aside from all the sweet stuff, remember that fruits are good but they are Sweet also. Hemoglobin A1c goal of less than 7.0. Patient is on metformin 500 mg twice a day (2) Hypertension: Code(s): I10 - Essential (primary) hypertension Category: Medical Qualifiers: Hypertension type: essential hypertension Qualified Code(s): I10 - Essential (primary) hypertension Plan: Continue with blood pressure medication. Decrease salt intake and exercise presently on lisinopril 40 mg once a day and amlodipine 2.5 mg once a day (3) Hypothyroid: Code(s): E03.9 - Hypothyroidism, unspecified Category: Medical Qualifiers: Hypothyroidism type: acquired Qualified Code(s): E03.9 - Hypothyroidism, unspecified Plan: Continue with thyroid medication 09/29/2023 last blood work (4) COPD (chronic obstructive pulmonary disease): Code(s): J44.9 - Chronic obstructive pulmonary disease, unspecified Category: Medical Qualifiers: COPD type: emphysema Emphysema type: unspecified Qualified Code(s): J43.9 - Emphysema, unspecified Plan: Stable (5) Hypercholesterolemia: Code(s): E78.00 - Pure hypercholesterolemia, unspecified Category: Medical Plan: Avoid fried foods, chicken skin, eggs, butter margarine, pastries and meat. Be it pork or beef they have a lot of cholesterol on atorvastatin 20 mg once Orders: Orders Influenza [id number] Immunization Today Z23 - Encounter for immunization Medications: Changed From amlodipine 2.5 mg PO DAILY 30 tabs 4RF I10 - Essential (primary) hypertension To amlodipine 5 mg PO DAILY 30 tabs 4RF I10 - Essential (primary) hypertension Refilled metformin 500 mg PO BIDWMEAL 60 tabs 0RF E11.65 - Type 2 diabetes mellitus with hyperglycemia tramadol 1-2 tablets PO every 6 to 8 hours; 30 days 240 tabs 0RF E11.65 - Type 2 diabetes mellitus with hyperglycemia
[2024-01-31 08:34] VITALS: BP 144/78; PULSE 75; O2SAT 97; BMI 28.3
== END 2024-01-31 09:08 | disposition home or self-care (01) ==
PROVIDERS: PCP Internal Medicine; Visit Provider Internal Medicine
DX: E11.65 Type 2 diabetes mellitus with hyperglycemia (principal); I10 Essential (primary) hypertension; E03.9 Hypothyroidism, unspecified; J43.9 Emphysema, unspecified; E78.00 Pure hypercholesterolemia, unspecified; Z23 Encounter for immunization

== ENCOUNTER → 2024-01-31 08:30 | Outpatient (BNVA) | payer MEDICARE, SELFPAY | PROVIDERS: PCP Internal Medicine; Visit Provider Internal Medicine | DX: Z23 Encounter for immunization (principal); E11.65 Type 2 diabetes mellitus with hyperglycemia; I10 Essential (primary) hypertension; E03.9 Hypothyroidism, unspecified; J43.9 Emphysema, unspecified; E78.00 Pure hypercholesterolemia, unspecified | CPT/HCPCS: 90471; 90656; 96127; 99212 ==

== ENCOUNTER 2024-05-05 14:46 | Outpatient (AMB) | payer MEDICARE, SELFPAY ==
--- NOTE | 2024-05-05 15:07 | A.OFFPC_ITS ---
Vital Signs 05/05/24 15:09 05/05/24 15:38 Height 5 ft 10 in Weight 200 lb 2 oz BMI 28.7 BP 140/64 H 120/80 Blood Pressure Location Lt brachial Lt brachial Position Sitting Sitting Pulse 63 Pulse Source Pulse Oximeter Temp 97.3 F Temp Source Temporal Artery Scan Pulse Oximetry (%) 97 Oxygen Delivery Method Room Air Intake Visit Reasons: DM, HTN Intake Note: Patient is here to follow up on DM, HTN. [employer] Certified Network Associate Required: No Manager Business Development Hospice: Not Required per policy Accompanied by: Self / Same As Patient Allergies hydromorphone [Dilaudid] Adverse Reaction (Unknown, Verified 05/05/24 15:08) Unknown Medication List - Last Reconciled 05/05/24 by Alan Garces MD amlodipine 5 mg PO DAILY aspirin (Adult Aspirin Regimen) 81 mg PO DAILY atorvastatin 20 mg PO DAILY cholecalciferol (vitamin D3) 25 mcg PO DAILY colchicine 0.6 mg PO DAILY fenofibrate 160 mg PO DAILY levothyroxine 88 mcg PO QAM 90 days lisinopril 40 mg PO DAILY metformin 1,000 mg PO BIDWMEAL 90 days tramadol 1-2 tablets PO every 6 to 8 hours; 30 days vitamins A,C,J-wqpv-krllox 4,296 mcg-226 mg-90 mg (PreserVision AREDS) 1 cap PO BID Tobacco use date assessed: 05/05/24 Fall risk assessment: No Falls in past year Last assessed Fall Risk: 05/05/24 Dental Screening Dental Screen Date: 05/05/24 Did you have a dental visit in the last 12 months?: No Did you have a dental problem in the last 6 months where you did not have access to dental care?: No Was dental information given to patient?: No PFSH Medical History TIA (transient ischemic attack) Hypercholesterolemia COPD (chronic obstructive pulmonary disease) Carpal tunnel syndrome, left Hypothyroid Type 2 diabetes mellitus with hyperglycemia PTSD (post-traumatic stress disorder) AAA (abdominal aortic aneurysm) Gout Hypertension Overweight (BMI 25.0-29.9) Degenerative disc disease Insomnia Alcohol abuse Surgical History History of cataract surgery History of colonoscopy History of lumbar fusion History of carpal tunnel release History of lumbar surgery H/O pelvic surgery Varicocele H/O left wrist surgery Family History Father CVD (cardiovascular disease) Cancer Mother Cancer Social History Housing: House Alcohol intake: current Alcohol intake frequency: holidays/special occasions only Comment: Q 2 week 1 beer Patient Tobacco Use Status: Former Tobacco user Tobacco use type: Cigarette Years Smoked: stopped 1976 e-Cigarette/Vaping Use: Never Used Second Hand Smoke Exposure: Yes service: Yes Current occupational status: retired Cognitive needs: No Hearing needs: No Vision needs: Yes Questionnaire PHQ-9 Over the last 2 weeks, how often have you been bothered by any of the following problems? 1. Little interest or pleasure in doing things: not at all 2. Feeling down, depressed, or hopeless: not at all 3. Trouble falling or staying asleep, or sleeping too much: not at all 4. Feeling tired or having little energy: not at all 5. Poor appetite or overeating: not at all 6. Feeling bad about yourself - or that you are a failure or have let yourself or your family down: not at all 7. Trouble concentrating on things, such as reading the newspaper or watching television: not at all 8. Moving or speaking so slowly that other people could have noticed. Or the opposite - being so fidgety or restless that you have been moving around a lot more than usual: not at all 9. Thoughts that you would be better off or of hurting yourself in some way: not at all Total score: 0 Depression Screening Interpretation: Negative Depression Screening Done: Yes Source: Developed by Drs. Vicente Rocha, Tessa Mantilla, Marcelo Jacobson and colleagues, with an educational leeann from [employer]. Thrive Questionnaire Date Thrive assessed: 05/05/24 I am a: Patient What is your living situation today?: I have a steady place to live Within the past 12 months, did the food you bought not last and you didn't have the money to get more?: Never true Within the past 12 months, did you worry whether your food would run out before you got money to buy more?: Never true Do you have trouble paying for medicines?: No Do you have trouble getting transportation to medical appointments?: No Do you have trouble paying your heating and electricity bill?: No Do you have trouble taking care of your child, family member or friend?: No Do you have trouble with day-to-day activities such as bathing, preparing meals, shopping, managing finances, etc.?: No Are you currently unemployed and looking for a job?: No Are you interested in more education?: No Please select the resources that you would like help with: None Currently or been in a relationship where the following occur: No concerns reported THRIVE Score: 0 AUDIT C Alcohol Use Questionnaire (AUDIT-C) 1. How often do you have a drink containing alcohol?: Monthly or less 2. How many drinks containing alcohol do you have on a typical day when you are drinking?: 1 or 2 Total Score: 1 RACHEL-7 AMB Questionnaire RACHEL-7 Date RACHEL - 7 assessed: 05/05/24 Feeling nervous, anxious, or on edge: 0 = Not at all Not being able to stop or control worryin = Not at all Worrying too much about different things: 0 = Not at all Trouble relaxin = Not at all Being so restless that it is hard to sit still: 0 = Not at all Becoming easily annoyed or irritable: 0 = Not at all Feeling afraid as if something awful might happen: 0 = Not at all Total RACHEL-7 score (0-4 normal; 5-9 mild; 10-14 moderate; 15-21 severe): 0 Source: Developed by Drs. Vicente Rocha, Tessa Mantilla, Marcelo Jacobson and colleagues, with an educational leeann from [employer]. Physical exam (Primary Care) Vital Signs: Last Vital Signs Temp 97.3 F 05/05/24 15:09 Pulse 63 05/05/24 15:09 BP 120/80 05/05/24 15:38 Pulse Ox 97 05/05/24 15:09 Oxygen Delivery Method Room Air 05/05/24 15:09 BMI result Body Mass Index 28.7 Tobacco/Smoking Status: Tobacco use Status Tobacco use date assessed 05/05/24 05/05/24 15:15 Patient Tobacco Use Status Former Tobacco user 05/05/24 15:08 Tobacco use type Cigarette 05/05/24 15:08 e-Cigarette/Vaping Use Never Used 05/05/24 15:08 PHQ-9: PHQ-9 Score PHQ-9: Total score 0 05/05/24 15:35 Depression Screening Interpretation: Negative Thrive Assessment: Date of Thrive Assessment Date Thrive assessed 05/05/24 05/05/24 15:08 Currently or been in a relationship where the following occur: No concerns reported Const General: alert; No acute distress Eyes Conjunctivae: conjunctivae normal Resp Auscultation: clear to auscultation bilaterally Cardio Rate: regular rate Rhythm: regular rhythm GI Inspection: Yes normal to inspection Extrem General: Yes normal to inspection and No edema Results AMB Hemoglobin A1c AMB Hemoglobin A1c 8.1 % Last Edit by JOSHUA Sebastian on 05/05/24 15:19 Results Reviewed Results Reviewed: Laboratory Last Values Hgb A1c (Clinic) 8.1 % (4.0-6.0) H 05/05/24 15:07 Coding Level of Care Code Est Pt Level 4 (31038) Complex EM visit Add On G2211 Diagnoses Type 2 diabetes mellitus with hyperglycemia, without long-term current use of insulin E11.65 Diabetes mellitus ferry terminal agent insulin use: without ferry terminal agent use Essential hypertension I10 Hypertension type: essential hypertension Acquired hypothyroidism E03.9 Hypothyroidism type: acquired Pulmonary emphysema, unspecified emphysema type J43.9 COPD type: emphysema Emphysema type: unspecified Hypercholesterolemia E78.00 Assessment & Plan Assessment & Plan (1) Type 2 diabetes mellitus with hyperglycemia: Comment: [facility] eye exam, [facility], [facility] Code(s): E11.65 - Type 2 diabetes mellitus with hyperglycemia Category: Medical Qualifiers: Diabetes mellitus ferry terminal agent insulin use: without intermediate use Qualified Code(s): E11.65 - Type 2 diabetes mellitus with hyperglycemia Plan: Decrease the amount of carbohydrate intake, pasta, bread, rice and potatoes are all sugar and that is aside from all the sweet stuff, remember that fruits are good but they are Sweet also. Hemoglobin A1c goal of less than 7.0 patient is on metformin 500 mg twice a day. (2) Hypertension: Code(s): I10 - Essential (primary) hypertension Category: Medical Qualifiers: Hypertension type: essential hypertension Qualified Code(s): I10 - Essential (primary) hypertension Plan: Continue with blood pressure medication. Decrease salt intake and exercise on lisinopril 40 mg once a day and amlodipine 5 mg once a day (3) Hypothyroid: Code(s): E03.9 - Hypothyroidism, unspecified Category: Medical Qualifiers: Hypothyroidism type: acquired Qualified Code(s): E03.9 - Hypothyroidism, unspecified Plan: Continue with thyroid medication (4) COPD (chronic obstructive pulmonary disease): Code(s): J44.9 - Chronic obstructive pulmonary disease, unspecified Category: Medical Qualifiers: COPD type: emphysema Emphysema type: unspecified Qualified Code(s): J43.9 - Emphysema, unspecified Plan: Patient has been stable without any inhaler. (5) Hypercholesterolemia: Code(s): E78.00 - Pure hypercholesterolemia, unspecified Category: Medical Plan: Avoid fried foods, chicken skin, eggs, butter margarine, pastries and meat. Be it pork or beef they have a lot of cholesterol on fenofibrate and atorvastatin Plan History of Present Illness The patient is an 83-year-old male presenting with a follow-up for the management of diabetes mellitus and hypertension. The patient has been diagnosed with diabetes and is currently managed with metformin at a dosage of 500 mg twice daily. His most recent Hemoglobin A1c goal is less than 7.0, though specific recent values were not mentioned. The patient was last seen in January 2024, and his blood work from September 2023 showed a normal blood count. He also underwent a cholesterol test in September, which indicated an LDL level of 74 mg/dL, suggesting well-managed cholesterol levels. His hypertension management includes lisinopril 40 mg daily and amlodipine 5 mg daily. Additionally, he has been managing hypothyroidism, COPD without requiring frequent albuterol use, and has a history of low back pain due to a lumbar decompression surgery performed in 2011. Health Maintenance - LDL cholesterol was 74 mg/dL per testing in September 2023. - Blood pressure monitoring recommended; the patient reports no home monitoring currently. - Continuing management for diabetes mellitus focusing on maintaining Hemoglobin A1c <7.0. - Maintaining lipid levels with fenofibrate and atorvastatin. Social History Review of Systems - Respiratory: Reports cough, noted by the frequent coughing during the visit. Physical Exam Results - Labs: Blood count normal as of September 2023; LDL 74 mg/dL from September 2023 cholesterol test. Plan - Continue metformin 500 mg twice daily for diabetes management. - Maintain blood pressure control with lisinopril 40 mg once daily and amlodipine 5 mg once daily. - Continue fenofibrate and atorvastatin for hypercholesterolemia management. - Albuterol inhaler as needed for COPD; patient currently stable without acute usage. - Patient education on blood pressure monitoring at home. Patient was informed and verbally consented to the use of an ambient scribe for clinic note documentation during this visit. Discussion Notes During our discussion, I expressed concerns about the patient's blood sugar control, emphasizing the importance of maintaining Hemoglobin A1c levels below 7.0 to prevent complications. I advised regular home blood pressure monitoring to aid in managing his hypertension more effectively. We also reviewed the current medication regimen for his chronic conditions, including diabetes, hypertension, COPD, and hypercholesterolemia, and discussed the stability of his COPD symptoms without frequent inhaler use. Patient Instructions - Continue current medications as prescribed. - Aim to achieve blood sugar targets with diligent use of metformin. - Monitor blood pressure at home regularly and report any significant changes. - Use the albuterol inhaler if symptoms of COPD flares occur. - Return for follow-up as scheduled to monitor chronic conditions. Orders: Orders AMB Hemoglobin A1c Today E11.65 - Type 2 diabetes mellitus with hyperglycemia Medications: New vitamins A,C,E-czzo-pmhvbc 4,296 mcg-226 mg-90 mg (PreserVision AREDS) 1 cap PO BID 180 caps 2RF Changed From metformin 500 mg PO BIDWMEAL 90 days 180 tabs 1RF E11.65 - Type 2 diabetes mellitus with hyperglycemia To metformin 1,000 mg PO BIDWMEAL 90 days 180 tabs 1RF E11.65 - Type 2 diabetes mellitus with hyperglycemia
[2024-05-05 15:09] VITALS: BP 140/64; PULSE 63; TEMP 36.3; O2SAT 97; BMI 28.7
[2024-05-05 15:38] VITALS: BP 120/80
--- OUTSIDE RECORDS SUMMARY | 2024-05-05 17:00 | XMS_ITS | Encounter Summary ---
Author Name [facility] Organization [facility] [place] Address [address] [place] [id number] Care Team Providers Care Configuration Management Manager Name Role Phone ELSI MOSES Primary Care Provider Unavailabl e Insurance Providers: All historical and current Section Date Range: From patient's date of to the date document was created. This section includes the names of all active insurance providers for the patient. Insurance Provider Type of Coverage Plan Name Start of Policy Coverage End of Policy Coverage Group Number Member ID Insurance Provider's Telephone Number Policy Harris's Name Patient's Relationship to Policy Harris [place] SU[place]LE[place] JUJU MEDEX 2 Sep 09, 2014 [id number] SINA FRANCIS PATIENT [place] JUJU MEDEX 2 Sep 09, 2014 [id number] [phone] DESJHONYURIE SINA ANGEL PATIENT [place] SU[place] JUJU [facility] Sep 09, 2014 [id number] SHAW[place]OVANE SINA ANGEL PATIENT MEDICARE (WNR) MEDICARE (M) PART A Sep 10, 2007 PART A [id number] SHAWNA[place]OVANE SINA ANGEL PATIENT MEDICARE (WNR) MEDICARE (M) PART B Sep 10, 2007 PART B [id number] ROSIEE SINA ANGEL PATIENT Selected Encounter This section includes the information on record at [place] for the Encounter. Date/Time Encounter Type Encounter Description Reason Provider Source Feb 12, 2024 01:00 PM OFFICE O/P EST LOW 20 MIN [facility] - IND ICD-10-CM F43.10 Post-traumatic stress disorder, unspecified SARAVANAN ROWE Bubba Encounter Template Text not used by [place] Assessments - Encounter Diagnoses This section includes the primary and secondary diagnoses documented for the Encounter. Date/Time Primary/Secondary Diagnosis Diagnosis Name Provider Source Feb 12, 2024 02:00 PM PRIMARY Post-traumatic stress disorder, unspecified ROWESARAVANAN [facility] Plan of Treatment: Future Appointments (+ 6 months) and Future Tests (+/- 45 days) The Plan of Treatment section includes future care activities for the patient [facility] [place] [facility] This section includes future appointments and future orders which are active, pending or scheduled. Future Appointments This section includes appointments that were scheduled to occur 6 months from the date of the Encounter, up to a maximum of 20 appointments. The data comes from all [place] treatment facilities. Appointment Date/Time Appointment Type Appointme nt Facility Name July 15, 2024 10:30 AM AMBULATORY - PS[facility]CHIATRY [facility] Social History: Smoking Status (Most current) and Tobacco Use (All prior to encounter date) This section includes the most current, and the historical, smoking and tobacco- related health factors from the [place] facility where the Encounter took place. Current Smoking Status This section includes the most current smoking, or tobacco-related health factor, from the [place] facility where the Encounter took place. Date/Time Current Smoking Status Comment Facil ity Feb 06, 2023 11:00 AM VA-TOBACCO FORMER USER [facility]UREAU Tobacco Use History This section includes a history of the smoking, or tobacco-related health factors, that were collected on or before the date of the Encounter. The data comes from the [place] facility where the Encounter took place. Date/Time Smoking Status/Tobacco Use Comment F acility Feb 06, 2023 11:00 AM VA-TOBACCO QUIT 5 TO < 15 YRS [facility] Jan 26, 2022 03:00 PM VA-TOBACCO FORMER USER [facility]UREAU Jan 26, 2022 03:00 PM VA-TOBACCO QUIT 15 YRS OR MORE BUREAU Dec 21, 2020 09:30 AM VA-TOBACCO FORMER USER BUREAU Dec 21, 2020 09:30 AM VA-TOBACCO QUIT 15 YRS OR MORE BUREAU Sep 16, 2019 11:32 AM VA-TOBACCO FORMER USER BUREAU Sep 16, 2019 11:32 AM VA-TOBACCO QUIT 15 YRS OR MORE BUREAU Oct 30, 2018 10:31 AM VA-TOBACCO FORMER USER BUREAU Oct 30, 2018 10:31 AM VA-TOBACCO QUIT 5 TO < 15 YRS BUREAU Jul 04, 2017 10:51 AM QUIT TOBACCO USE 1-7 YEARS AGO [facility]AU Apr 05, 2017 11:03 AM QUIT TOBACCO USE 1-7 YEARS AGO [facility]UREAU July 21, 2016 09:23 AM QUIT TOBACCO USE 1-7 YEARS AGO [facility]UREAU Jun 17, 2015 02:04 PM QUIT TOBACCO USE > 7 YEARS AGO [facility]UREAU Encounter Notes: All associated encounter notes This section contains the clinical notes associated to the Encounter. Date/Time Encounter Note(s) Provider Source Feb 12, 2024 12:59 PM CLINICAL NURSE SPE CIALIST NOTE: LOCAL TITLE: CLINICAL NURSE SPECIALIST/MENTAL HEALTH STANDARD TITLE: CLINICAL NURSE SPECIALIST NOTE DATE OF NOTE: FEB 12, 2024@12:59 ENTRY DATE: FEB 12, 2024@12:59:46 AUTHOR: SARAVANAN ROWE EXP COSIGNER: URGENCY: STATUS: COMPLETED Active problems - Computerized Problem List is the source for the followin. Post-surgery back pain 2. Depressive disorder 3. Posttraumatic stress disorder 4. Gout 5. Gastro-esophageal reflux 6. TIA 7. Vitamin D deficiency 8. IGT - Impaired glucose tolerance 9. Degeneration of intervertebral disc 10. AAA - Abdominal aortic aneurysm 11. Subclinical hypothyroidism 12. Shared care - hospice and GP 13. Benign hypertension 14. HLD - Hyperlipidemia Patient was seen today for treatment of the following diagnosis/diagnoses: Pertinent symptoms: Dx PTSD-chronic- medication management In person- 25 min- His passed in August, grieving, mood is stable. He has assistance from his children and strong family support. He states that he three sisters that have medical problems that he is concerned about and he is helping them Relevant mental status exam or other objective findings: Well groomed , friendly Thought process- goal directed Speech :normal rate and tone No a/v hallucination/ delusions. Judgement and insight -intact Orientation- x 3 Associations intact Recent and remote memory- intact Attention and concentration- good Language- intact Good fund of knowledge Mood ok but stable.- No S/I/ H/I PTSD symptoms: hypervigilance, revisiting memories, social withdrawal, sleep disturbance- fair control Labs/Radiology/Tests/Consultation _x_ none ordered __ obtained: labs reviewed Assessment/ Plan: Continue to offer support still has PTSD triggers. He states that so far he can manage and plans trip with family. Currently mood is stable- grieving. Discussed support group if needed - Declines need for antidepressant . We discussed the grieving process again and how he is coping. Reviewed how grieving is individual and one should focus on what helps the person best. Chronic sleep disturbance and takes trazodone for sleep. Taking Trazodone 200mg at his x 90 days- good effect. Rt in 4 months/prn The following VA and Non-VA medications were reconciled with the patient: Active Outpatient Medications (including Supplies): COLCHICINE 0.6MG TAB TAKE ONE TABLET BY MOUTH ONCE DAILY ACTIVE FOR GOUT LIDOCAINE 5% PATCH APPLY 1 PATCH TOPICALLY ONCE DAILY ACTIVE (LEAVE PATCH ON FOR 12 HOURS, THEN REMOVE PATCH) MAY USE UP TO 3 DAILY TRAZODONE HCL 100MG TAB TAKE TWO TABLETS BY MOUTH AT ACTIVE BEDTIME FOR INSOMNIA Non-VA ASPIRIN 81MG EC TAB 81MG BY MOUTH DAILY ACTIVE Non-VA CHOLECALCIF 25MCG (D3-1,000UNIT) TAB 1000UNIT BY ACTIVE MOUTH DAILY Non-VA FENOFIBRATE 160MG TAB 160MG BY MOUTH DAILY ACTIVE Non-VA LEVOTHYROXINE NA (SYNTHROID) 50MCG TAB 50MCG BY ACTIVE MOUTH EVERY MORNING 30 MINUTES BEFORE BREAKFAST Non-VA LISINOPRIL 40MG TAB 40MG BY MOUTH DAILY ACTIVE Non-VA MULTIVITAMIN/MINERALS CAP/TAB 1 TABLET BY MOUTH ACTIVE DAILY Non-VA SIMVASTATIN 20MG TAB 10MG BY MOUTH ONCE DAILY ACTIVE Non-VA TRAMADOL HCL 50MG TAB 50MG BY MOUTH FOUR TIMES ACTIVE DAILY NEEDED The rationale for the psychiatric medications and the alternatives to treatment were discussed with the patient. The side effect profile of the psychiatric medications was reviewed with the patient. Patient demonstrated reasonable understanding of the medication side effects and the above issues. The benefits of psychiatric medications outweigh risks for this patient. I asked the patient call [phone] ([facility] [place]) or to come to open access if needed /vanesa/ Saravanan Rowe APRN, STAFF CLINICAL NURSE SPECIALIST Signed: 02/12/2024 14:00 SARAVANAN ROWE
--- OUTSIDE RECORDS SUMMARY | 2024-05-05 17:01 | XMS_ITS | Clinical Summary ---
Author Organization [facility] Address [address] [place] [address] Care Team Providers Care Paper Inserter Name Role Phone Alan Garces MD Primary Care Provider [phone] Social History Tobacco Use Types Packs/Day Years Used Date Smoking Tobacco: Never Assessed Sex and Gender Information Value Date Recorded Sex Assigned at Not on file Legal Sex Male 3:26 PM EST Gender Identity Not on file Sexual Orientation Not on file Plan of Treatment Health Maintenance Due Date Last Done Comments DTaP,Tdap,and Td Vaccines (1 - Tdap) 1961 Pneumococcal Vaccine: 50+ Ye ars (1 of 1 - PCV) 1992 Zoster Vaccines (1 of 2) 1992 RSV Immunization Patients 60 + Years Old (1 - 1-dose 75+ series) 2017 COVID-19 Vaccine (2023-2 5 season) 2023 Influenza Vaccine (#1) 2023 HIB Vaccines Aged Out No longer eligi ble based on patient's age to complete this topic HPV Vaccines Aged Out No longer eligi ble based on patient's age to complete this topic Hepatitis A Vaccines Aged Out No long er eligible based on patient's age to complete this topic Hepatitis B Vaccines Aged Out No long er eligible based on patient's age to complete this topic IPV Vaccines Aged Out No longer eligi ble based on patient's age to complete this topic MMR Vaccines Aged Out No longer eligi ble based on patient's age to complete this topic Meningococcal ACWY Vaccine Aged Out N o longer eligible based on patient's age to complete this topic Meningococcal B Vacine Aged Out No lo nger eligible based on patient's age to complete this topic RSV Immunization Patients Un xiomara 20 months Aged Out No longer eligible b ased on patient's age to complete this topic Varicella Vaccines Aged Out No longer eligible based on patient's age to complete this topic Care Teams Paper Inserter Relationship Specialty Start Date End Date Alan Garces MD [address] [place] [address] [address] [facility] JAMISON Ray [id number] PCP - General Internal Medicine 12/21/16
--- OUTSIDE RECORDS SUMMARY | 2024-05-05 17:01 | XMS_ITS | Continuity of Care Document ---
Author Name [facility] Organization [facility] Care Team Providers Care Warhead Maintenance Specialist Name Role Phone [facility] Unavailable Unavailable Problems Combined list of problems from Department of Defense and Veterans Affairs facilities. It does not include entries that were removed or entered in error. Problem Status Onset Date Problem Type Date of Resolution Comments Source AAA - Abdominal aortic aneurysm Active 013 Condition Jan 06, 2015 Entered By: RAFAEL BROWER Comment: 2012 3-3.2cm [facility] Degeneration of intervertebral disc Active 012 Condition Feb 21, 2016 Entered By: RAFAEL BROWER Comment: see note 02/18/16 for imaging results from 2016 Entered By: RAFAEL BROWER Comment: 12/11/16 L3/4 decompression, radical diskectomy interbody and posteriorlateral anthrodesisOct 2016 Entered By: RAFAEL BROWER Comment: exploratoion of fusion L4-L5 segmental fixation L3-5 [facility] TIA Active 008 Condition [facility] Benign hypertension Active Condition Jan 08, 2017 Entered By: RAFAEL BROWER Comment: 12/04/16 EKG SB w occ PVC's, RBBB, left ant fascicular block [facility] Chronic kidney disease stage 3 Active Condition [facility] Chronic kidney disease stage 3 due to type 2 diabetes mellitus Active Condition [facility] Depressive disorder Active Condition Nov 24, 2016 Entered By: JOSSELINE SANCHEZ Comment: depressive disorder diagnosis updated November 24, 2016 [facility] Exposure to potentially hazardous substance Active Condition Feb 19, 2022 Entered By: SHAHBAZ MORGAN Comment: radiation exposure [facility] (631[facility]) Gastro-esophageal reflux Active Condition [facility] Gout Active Condition [facility] HLD - Hyperlipidemia Active Condition [facility] Hypothyroidism Active Condition [facility] IGT - Impaired glucose tolerance Active Condition [facility] Post-surgery back pain Active Condition [facility] Posttraumatic stress disorder Active Condition Nov 24, 2016 Entered By: JOSSELINE SANCHEZ Comment: diagnosis updated November 24, 2016 [facility] [place] [facility] Shared care - hospice and GP Active Condition Jan 04, 2015 Entered By: RAFAEL BROWER Comment: PCP: Dr. Tate 2014 Entered By: RAFAEL BROWER Comment: Vascular: Dr. Ortiz 2014 Entered By: RAFAEL BROWER Comment: neurosurgical: Dr. Crowe [facility] Vitamin D deficiency Active [facility] [place] [facility] Diagnosis: ICD-10-CM F43.10 Post-traumatic stress disorder, unspecified Active Diagnosis [facility] Diagnosis: ICD-10-CM Z46.0 Encounter for fit/adjst of spectacles and contact lenses [facility] [place] [facility] Diagnosis: ICD-10-CM Z96.1 Presence of intraocular lens [facility] Medications Combined list of outpatient medications from Department of Defense and Veterans Affairs facilities.Medications provided include 1) outpatient medications from the last 15 months, and 2) patient-reported medications. Medication Details Route Status Patient Instructions Prescription Expires Prescription Number Last Dispense Date Ordering Provider Order Date Order Qty Source AMLODIPINE BESYLATE 2.5MG TAB TAKE ONE TABLET BY MOUTH ONCE DAILY FOR BLOOD PRESSURE /HEART, DO NOT TAKE WITH GRAPEFRU IT JUICE ORAL ACTIVE 07/02/2024 [id number] Randee MOSES A 2023 90 [place] AMLODIPINE BESYLATE 2.5MG TAB TAKE ONE TABLET BY MOUTH ONCE DAILY FOR BLOOD PRESSURE /HEART, DO NOT TAKE WITH GRAPEFRU IT JUICE ORAL DISCONT INUED 03/08/2024 [id number] SHELIA SCHERER 2022 90 [place] ASPIRIN 81MG TAB,EC TAKE ONE TABLET BY MOUTH DAILY ORAL ACTIVE [place]FAEL [place] 2014 [place] CARBOXYMETH YLCELLULOSE NA 0.5% SOLN,OPH INSTILL 1 DROP INTO EACH EYE FOUR TIMES DAILY NEEDED FOR DRY EYE OPHTHA LMIC ACTIVE 05/07/2024 [id number] Katie RANDOLPH NDREW E 2023 15 [facility] CHOLECALCIF DIMPLE 25MCG (1,000UNIT) TAB TAKE ONE TABLET BY MOUTH DAILY ORAL ACTIVE RAFAEL EVANS [place] 2014 [place] COLCHICINE 0.6MG TAB TAKE ONE TABLET BY MOUTH ONCE DAILY FOR GOUT ORAL ACTIVE 07/02/2024 [id number] Randee MOSES 2023 30 [place] COLCHICINE 0.6MG TAB TAKE ONE TABLET BY MOUTH ONCE DAILY FOR GOUT ORAL DISCONT INUED 01/23/2024 [id number] SHELIA SCHERER 2022 30 [place] DICLOFENAC NA 1% GEL,TOP APPLY 2 GRAMS TOPICALL Y AT BEDTIME NEEDED FOR OSTEOART HRITIS - USE DOSING CARD PROVIDED IN BOX TOPICA L 07/27/2023 [id number] JOSUE GONZALEZ 2022 100 [place] FENOFIBRATE 160MG TAB TAKE ONE TABLET BY MOUTH DAILY ORAL ACTIVE [place]FAEL [place]NAS [place] 2014 [place] LEVOTHYROXI NE NA 50MCG TAB (SYNTHROID) TAKE ONE TABLET BY MOUTH EVERY MORNING 30 MINUTES BEFORE BREAKFAS T ORAL ACTIVE RAFAEL EVANS [place] LIDOCAINE 4% CREAM,TOP APPLY A SMALL AMOUNT TOPICALL Y TWICE DAILY NEEDED FOR SKIN IRRITATI ON TOPICA L 07/27/2023 [id number] JOSUE GONZALEZ S 2022 60 [place] LIDOCAINE 5% PATCH APPLY 1 PATCH TOPICALL Y ONCE DAILY NEEDED FOR NERVE PAIN (LEAVE PATCH ON FOR 12 HOURS, THEN REMOVE PATCH) TOPICA L ACTIVE 09/05/2024 [id number] Randee MOSES A 2023 30 [place] LISINOPRIL 40MG TAB TAKE ONE TABLET BY MOUTH DAILY ORAL ACTIVE [place]FAEL [place] MULTIVIT/OP HTH AREDS2/LUTE IN/ZEAXANTH IN CAP/TAB TAKE 1 CAPSULE BY MOUTH TWICE DAILY FOR VITAMIN SUPPLEME NTATION IN THE MORNING AND EVENING, WITH FOOD ORAL ACTIVE 12/26/2024 [id number] GAL,ANDREEA 2023 120 [facility] MULTIVITAMI NS W/MINERALS TAB TAKE ONE TABLET BY MOUTH DAILY ORAL ACTIVE [place] [address] [facility] IEBAYRON SIMVASTATIN 20MG TAB TAKE ONE-HALF TABLET BY MOUTH ONCE DAILY ORAL ACTIVE [place]FAEL [place] TRAMADOL HCL 50MG TAB TAKE ONE TABLET BY MOUTH FOUR TIMES A DAY NEEDED ORAL ACTIVE [place]FAEL [place] TRAZODONE HCL 100MG TAB TAKE TWO TABLETS BY MOUTH AT BEDTIME FOR INSOMNIA ORAL ACTIVE 08/14/2024 [id number] KAPIL ROWE [address] [facility] IELD TRAZODONE HCL 100MG TAB TAKE TWO TABLETS BY MOUTH AT BEDTIME FOR INSOMNIA ORAL DISCONT INUED 07/26/2023 [id number] KAPIL ROWE F 2022 180 [place] Immunizations Combined list of available immunizations from the Department of Defense and Veterans Affairs facilities. Immunization Series Date Given Administered By Site Reaction Lot Number CVX Code Drug Atomic Physics Teacher Status Comments Source INFLUENZA, UNSPECIFIED FORMULATION 2021 88 complet ed [facility] ZOSTER RECOMBINANT [address] [facility] I[place] COVID-19 (PFIZER), MRNA, LNP-S, PF, 30 MCG/0.3 ML DOSE 3 2020 208 complet ed [facility] INFLUENZA, UNSPECIFIED FORMULATION 2020 88 complet ed [facility] COVID-19 (PFIZER), MRNA, LNP-S, PF, 30 MCG/0.3 ML DOSE 2 2020 208 complet ed [facility] COVID-19 (PFIZER), MRNA, LNP-S, PF, 30 MCG/0.3 ML DOSE 1 2020 208 complet ed [facility] ZOSTER RECOMBINANT 1 2019 187 complet ed [place] PNEUMOCOCCAL POLYSACCHARID E PPV23 2019 33 complet ed [facility] INFLUENZA, UNSPECIFIED FORMULATION 2019 88 complet ed [facility] PNEUMOCOCCAL POLYSACCHARID E PPV23 2018 33 complet ed [facility] INFLUENZA, SEASONAL, INJECTABLE 2018 141 complet ed [facility] INFLUENZA, SEASONAL, INJECTABLE 2017 141 complet ed [facility] ZOSTER (SHINGLES) (HISTORICAL) 2015 121 complet ed Proximal Left Arm [place] PNEUMOCOCCAL CONJUGATE PCV 13 2014 133 complet ed n/a [facility] FLU,3 YRS (HISTORICAL) 2014 88 complet ed given at home by daughter who is a RN [facility] FLU,3 YRS (HISTORICAL) 2013 88 complet ed [facility] TET-DIP-A/PER TUSS[place] (HISTORICAL) 2013 139 complet ed [facility] Encounters Combined list of: 1) Encounters from Department of Veterans Affairs facilities going backup to the last 18 months, not all VA inpatient encounters are included; 2) Encounters from the Department of Defense facilities going backup to 280 months. Location Location Details Encounter Type Encounter Number Reason For Visit Attending Provider ADM Date DC Date Status Disposition Source [facility] Outpatient Encounter [id number] 01/22 [facility] Outpatient Encounter [id number] 01/22 [facility] [place] [facility] O/P EST LOW 20-29 MIN [id number] Diagnos is: ICD-10- CM F43.10 Post-tr aumatic stress disorde r, unspeci fied SOLEDAD,LER OY F 02/06 [place] [facility] Outpatient Encounter [id number] 02/06 [facility] Out[facility] Encounter [id number] 03/08 [facility] Out[facility] Encounter [id number] 04/05 [facility] Outpatient Encounter [id number]/[id number] [facility] Out[facility] Encounter [id number] 04/16 [facility] Out[facility] Encounter [id number] 04/17 [facility] INTRM OPH EXAM EST PATIENT [id number] Diagnos is: ICD-10- CM Z96.1 Presenc e of intraoc ular lens AGUSTÍNKALLIE LATRICIA E 05/07 [facility] FIT SPECTACLES BIFOCAL [id number] Diagnos is: ICD-10- CM Z46.0 Encount er for fit/adj st of spectac les and contact lenses AGUSTÍNKALLIE LATRICIA E 05/08 [facility] Outpatient Encounter [id number] 05/14 [facility] Outpatient Encounter [id number] 07/01 [facility] Out[facility] Encounter [id number] 07/05 [facility] Outpatient Encounter [id number] 08/13 [facility] O/P EST LOW 20 MIN [id number] Diagnos is: ICD-10- CM F43.10 Post-tr aumatic stress disorde r, unspeci ANAI Damon OY F 08/13 [place] [facility] Outpatient Encounter [id number] 10/21 [facility] Outpatient Encounter [id number] 1.12/25 [facility] Outpatient Encounter [id number] 1.12/30 [facility] [place] [place] O/P EST LOW 20 MIN [id number] Diagnos is: ICD-10- CM F43.10 Post-tr aumatic stress disorde r, unspeci ANAI Damon OY F 02/11 [facility] [place] Social History Combined list of available smoking, tobacco, and other social history from Department of Defense and Veterans Affairs facilities. Social History Type Response Date Comment Sourc e Tobacco smoking status [facility] VA-TOBACCO FORMER USER 023 [facility] History of tobacco use MD-TOBACCO QUIT 5 TO < 15 YRS 02/06/2023 [facility] [facility] History of tobacco use MD-TOBACCO QUIT 1 5 YRS OR MORE 01/26/2022 [facility] History of tobacco use MD-TOBACCO FORMER USER 12/21/2020 [facility] History of tobacco use MD-TOBACCO QUIT 1 5 YRS OR MORE 09/16/2019 [facility] History of tobacco use VA-TOBACCO QUIT 5 TO < 15 YRS 10/30/2018 [facility] History of tobacco use QUIT TOBACCO USE 1-7 YEARS AGO 07/04/2017 [facility] History of tobacco use QUIT TOBACCO USE 1-7 YEARS AGO 04/05/2017 [facility] History of tobacco use QUIT TOBACCO USE 1-7 YEARS AGO 07/21/2016 [facility] History of tobacco use QUIT TOBACCO USE > 7 YEARS AGO 06/17/2015 [facility] Plan of Care List of future care activities from [facility] facilities. Additional future care activities may be listed in the Assessment and Plan section. Date/Time Care Activity Care Activity Detail Facili ty 07/15/2024 AMBULATORY - PSYCHIATRY AMBULATORY - [facility] 10/06/2024 AMBULATORY - MEDICINE AMBULATORY - MEDIC[facility] [facility]
--- OUTSIDE RECORDS SUMMARY | 2024-05-05 17:01 | XMS_ITS ---
Author Name [facility] Organization [facility] [place] Address [address] [place] [address] Care Team Providers Care Frame Builder Name Role Phone ELSI MOSES Primary Care [...] Harris's Name Patient's Relationship to Policy Harris [facility] MEDICARE SUPPLEMEN JUJU MEDEX 2 Sep 09, 2014 [id number] [phone] SINA FRANCIS PATIENT [place] MED[place] SUPPLEMEN JUJU MEDEX 2 Sep 09, 2014 [id number] [phone] ROSIEE SINA ANGEL PATIENT [facility] MEDICARE SUPPLEMEN JUJU [facility] Sep 09, 2014 [id number] [phone] SINA FRANCIS PATIENT MEDICARE ([facility]) MEDICARE () PART A Sep 10, 2007 PART A [id number] LOYDSINA CHANEL PATIENT MEDICARE ([place]) MEDICARE () PART B Sep 10, 2007 PART B [id number] [phone] SINA FRANCIS PATIENT Selected Encounter This section includes the information on record at [place] for the Encounter. Date/Time Encounter Type Encounter Description Reason Provider Source May 07, 2023 02:00 PM INTRM OPH EXAM EST PATIENT OPTOMETRY ICD-10-CM Z96.1 Presence of intraocular lens MARCOS RANDOLPH E Encounter Template Text not used by [place] Assessments - Encounter Diagnoses This section includes the primary and secondary diagnoses documented for the Encounter. Date/Time Primary/Secondary Diagnosis Diagnosis Name Provider Source May 19, 2023 12:46 PM PRIMARY Presence of intraocular lens MARCOS RANDOLPH [facility] [place] [facility] May 19, 2023 12:46 PM SECONDARY Glare sensitivity MARCOS RANDOLPH [facility] [place] [facility] Plan of Treatment: Future Appointments (+ 6 months) and Future Tests (+/- 45 days) The Plan of Treatment section includes future care activities for the patient from all [place] treatmentfacilities. This section includes future appointments and future orders which are active, pending or scheduled. Future Appointments This section includes appointments that were scheduled to occur 6 months from the date of the Encounter, up to a maximum of 20 appointments. The data comes from all [place] treatment facilities. Appointment Date/Time Appointment Type Appointme nt Facility Name Aug 14, 2023 10:00 AM AMBULATORY - PSYCHIATRY [facility] Encounter Notes: All associated encounter notes This section contains the clinical notes associated to the Encounter. Date/Time Encounter Note(s) Provider Source May 07, 2023 02:07 PM OPTOMETRY NOTE: LOCAL TITLE: OPTOMETRY NOTE(T) STANDARD TITLE: OPTOMETRY NOTE DATE OF NOTE: MAY 07, 2023@14:07 ENTRY DATE: MAY 07, 2023@14:07:49 AUTHOR: MARCOS RANDOLPH EXP COSIGNER: URGENCY: STATUS: COMPLETED I saw this patient in conjunction with the student and agree to the stated findings and plan after reviewing both history and repeating luo elements of physical exam. 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 Otherwise no acute ocular disease was seen today. Ordered sunglasses bifocals and clear reading glasses. The patient will return in 12 months or sooner if any problems arise. /vanesa/ MARCOS RANDOLPH OD STAFF GENERAL OPERATOR Signed: 05/07/2023 15:21 MARCOS RANDOLPH [place] [facility] [place] [facility] May 07, 2023 01:47 PM OPTOMETRY NOTE: LOCAL TITLE: OPTOMETRY STUDENT NOTE STANDARD TITLE: OPTOMETRY NOTE DATE OF NOTE: MAY 07, 2023@13:47 ENTRY DATE: MAY 07, 2023@13:47:54 AUTHOR: NADINE ANTONIO EXP COSIGNER: MARCOS RANDOLPH URGENCY: STATUS: COMPLETED Active problems - Computerized Problem List is the source for the followin. Exposure to potentially hazardous substance 2. Chronic kidney disease stage 3 3. Chronic kidney disease stage 3 due to type 2 diabetes mellitus 4. Post-surgery back pain 5. Depressive disorder 6. Posttraumatic stress disorder 7. Gout 8. Gastro-esophageal reflux 9. TIA 10. Vitamin D deficiency 11. IGT - Impaired glucose tolerance 12. Degeneration of intervertebral disc 13. AAA - Abdominal aortic aneurysm 14. Hypothyroidism 15. Shared care - hospice and GP 16. Benign hypertension 17. HLD - Hyperlipidemia Active Outpatient Medications (including Supplies): Active Outpatient Medications Status 1) AMLODIPINE BESYLATE 2.5MG TAB TAKE ONE TABLET BY ACTIVE MOUTH ONCE DAILY FOR BLOOD PRESSURE/HEART, DO NOT TAKE WITH GRAPEFRUIT JUICE 2) COLCHICINE 0.6MG TAB TAKE ONE TABLET BY MOUTH ONCE ACTIVE DAILY FOR GOUT 3) DICLOFENAC NA 1% TOP GEL APPLY 2 GRAMS TOPICALLY AT ACTIVE BEDTIME NEEDED FOR OSTEOARTHRITIS - USE DOSING CARD PROVIDED IN BOX 4) LIDOCAINE 4% TOP CREAM APPLY A SMALL AMOUNT TOPICALLY ACTIVE TWICE DAILY NEEDED FOR SKIN IRRITATION 5) LIDOCAINE 5% PATCH APPLY 1 PATCH TOPICALLY ONCE DAILY ACTIVE NEEDED FOR NERVE PAIN (LEAVE PATCH ON FOR 12 HOURS, THEN REMOVE PATCH) 6) TRAZODONE HCL 100MG TAB TAKE TWO TABLETS BY MOUTH AT ACTIVE BEDTIME FOR INSOMNIA Active Non-VA Medications Status 1) Non-VA ASPIRIN 81MG EC TAB 81MG BY MOUTH DAILY ACTIVE 2) Non-VA CHOLECALCIF 25MCG (D3-1,000UNIT) TAB 1000UNIT ACTIVE BY MOUTH DAILY 3) Non-VA FENOFIBRATE 160MG TAB 160MG BY MOUTH DAILY ACTIVE 4) Non-VA LEVOTHYROXINE NA (SYNTHROID) 50MCG TAB 50MCG ACTIVE BY MOUTH EVERY MORNING 30 MINUTES BEFORE BREAKFAST 5) Non-VA LISINOPRIL 40MG TAB 40MG BY MOUTH DAILY ACTIVE 6) Non-VA MULTIVITAMIN/MINERALS CAP/TAB 1 TABLET BY ACTIVE MOUTH DAILY 7) Non-VA SIMVASTATIN 20MG TAB 10MG BY MOUTH ONCE DAILY ACTIVE 8) Non-VA TRAMADOL HCL 50MG TAB 50MG BY MOUTH FOUR TIMES ACTIVE DAILY NEEDED 14 Total Medications Allergies: Patient has answered NKA All medications including those prescribed by outside VA's, community providers, and all OTC meds were reviewed and reconciled with patient to the best of their abilities. This 82 year old MALE is seen today for comprehensive eye exam Chief Complaint: Pt. states he needs reading glasses. Pt. cat sx apr 05 2023 OD, Apr 16 2023 OS. No complications from the procedure thus far. OHx: 1. Refractive Error OD 2. Mixed Cataracts OU 3. Papilloma RUL - stable 4. Cataract Surgery OU - 2023 (-) Pain: (-) SHAH: (-) Diplopia: (-) Flashes: (-) Floaters: (-) Amaurosis Fugax/Tia's: (-) Eye Injury: (+) Eye Surgery: cataract surgery (-) TBI Family Ocular History: (-) Glaucoma/ARMD/Blindness Social History: (-) Smoker/Length of Time/PPD: Current Rx with last BCVA: before cataract surgery OU OD: -0.25 - 0.75 x 105 20/25+ OS: +0.25 -0.50 x 180 sph 20/25 OU: 20/20-2 Add: +2.75 20/20 OU DVA (x)sc OD: 20/20 OS: 20/20 Pupils: PERRL (-)APD EOMs: SAFE OU, (-)Pain/Diplopia CVF (facial, peripheral): FTFC OU Subjective Refraction: OD: plano SPH 20/20 OS: plano SPH 20/20 Add: +2.50 20/20 OU All the above performed by student, reviewed by attending Anterior segment: Performed by student, repeated by attending Lids: Hydrocystoma RUL, Flat Verruca RLL OU Conj: white and quiet OU Cornea: Endothelial scars(cat sx)temporally OU, inferior SPK OU AC: 4x4 OU, (-)TID OU Iris: flat and clear OU Lens: PCIOL OU, (-)PXF/PDS OU Tonometry: Performed by student, reviewed by attending OD 14 mmHg OS 12 mmHg Time: 2:15pm Fundus exam: Dilated: XXXX @2:20pm Non dilated: Dilating Drops: 1GTT 1 % Tropicamide OU & 1GTT 2.5% Phenylephrine OU (Pt. ed. on side effects, dilation warning given and verbal consent obtained) Patient advised not to drive if they feel they have any symptoms which could affect their ability to drive safely. Patient advised not to engage in any activities which could put themselves or others at risk if they feel they have any symptoms which could affect their ability to perform those activities safely. Performed by student, repeated by attending Vit: PVD OU C/D: 0.35/0.35 OD, 0.35/0.35 OS Disc: Rim tissue is pink and healthy OU Macula: flat and clear OU PPole: clear A/V: 2/3 Vessels: normal caliber OU Periph: flat and intact (-)holes, tears, detachments 360 OU atypical CHRPE Inferior Nasal OD Assessment/Plan: 1. Pseudophakia OU - pciol clear and centered - cataract sx within the last month, no complications as of today's exam - pt. to follow-up any needed care with cataract surgeon - monitor condition 2. Presbyopia OU - Pt. to fill NVO and Bifocal sunglasses - monitor condition 3. Hydrocystoma RUL OD - stable, pt. ed on condition. - monitor condition 4. Dry eye syndrome OU - Pt. to take AT's 3-4x a day - monitor condition Return to Clinic 1 year or earlier PRN [place] Education: After discussion and answering all 's questions, demonstrated and verbalized understanding of diagnosis and treatment. Yes [ ] No [ ] Medication Reconciliation: Outpatient: Has the patient been taking medications as documented in the EMLR? YES: The patient has been taking medications as documented in the EMLR. Essential Medication List for Review used to complete this medication reconciliation. INCLUDED IN THIS LIST: Alphabetical list of active outpatient prescriptions dispensed from this VA (local) and dispensed from another VA or DoD facility (remote) as well as inpatient orders (local, pending and active), local clinic medications, locally documented non-VA medications, and local prescriptions that have or been discontinued in the past 90 days. - All changes in medications, including all non-VA/Herbal/OTC medications were entered into CPRS. - If there were any medications the patient should no longer take, they were discontinued. - The patient/caregiver was instructed to update this list, discard old lists, and take this list to the next appointment, whether with a VA or non-VA provider. /vanesa/ NADINE ANTONIO OPTOMETRY STUDENT Signed: 05/07/2023 16:14 /vanesa/ MARCOS RANDOLPH OD STAFF GENERAL OPERATOR Cosigned: 05/07/2023 16:15 NADINE ANTONIO [facility]
--- OUTSIDE RECORDS SUMMARY | 2024-05-05 17:01 | XMS_ITS | Encounter Summary ---
Author Name [facility] [place] [place] Organization [facility] [place] Address [address] [place] [id number] Care Team Providers Care Associate Professor Of Media Arts Name Role Phone ELSI MOSES Primary Care [...] SUPPLEMEN JUJU MEDEX 2 Sep 09, 2014 [id number] [phone] SINA FRANCIS PATIENT [place] SUPPLEMEN JUJU MEDEX 2 Sep 09, 2014 [id number] DESJHONYURIE SINA ANGEL PATIENT [place] SUPPLEMEN JUJU [place] [facility] Sep 09, 2014 [id number] [phone] SHAWNADONOVANE SINA ANGEL PATIENT MEDICARE (WNR) MEDICARE ([place]) PART A Sep 10, 2007 PART A [id number] [place]ANE SINA ANGEL PATIENT MEDICARE (WNR) MEDICARE (M) PART B Sep 10, 2007 PART B [id number] ROSIEE SINA ANGEL PATIENT Selected Encounter This section includes the information on record at [place] for the Encounter. Date/Time Encounter Type Encounter Description Reason Provider Source Aug 14, 2023 10:00 AM OFFICE O/P EST LOW 20 MIN [facility] - IND ICD-10-CM F43.10 Post-traumatic stress disorder, unspecified SARAVANAN ROWE Bubba Encounter Template Text not used by [place] Assessments - Encounter Diagnoses This section includes the primary and secondary diagnoses documented for the Encounter. Date/Time Primary/Secondary Diagnosis Diagnosis Name Provider Source Aug 14, 2023 10:16 AM PRIMARY Post-traumatic stress disorder, unspecified [facility]OW[facility]NA[facility] Plan of Treatment: Future Appointments (+ 6 months) and Future Tests (+/- 45 days) The Plan of Treatment section includes future care activities for the [facility] [place] [facility] This section includes future appointments and future orders which are active, pending or scheduled. Future Appointments This section includes appointments that were scheduled to occur 6 months from the date of the Encounter, up to a maximum of 20 appointments. The data comes from all [place] treatment facilities. Appointment Date/Time Appointment Type Appointme nt Facility Name Feb 12, 2024 01:00 PM AMBULATORY - PSYCHIATRY [facility] Social History: Smoking Status (Most current) and Tobacco Use (All prior to encounter date) This section includes the most current, and the historical, smoking and tobacco- related health factors from the [place] facility where the Encounter took place. Current Smoking Status This section includes the most current smoking, or tobacco-related health factor, from the [place] facility where the Encounter took place. Date/Time Current Smoking Status Comment Facil ity Feb 06, 2023 11:00 AM [facility]-TOBACCO FORMER USER [facility] Tobacco Use History This section includes a history of the smoking, or tobacco-related health factors, that were collected on or before the date of the Encounter. The data comes from the [place] facility where the Encounter took place. Date/Time Smoking Status/Tobacco Use Comment F acility Feb 06, 2023 11:00 AM VA-TOBACCO QUIT 5 TO < 15 YRS [facility] Jan 26, 2022 03:00 PM VA-TOBACCO FORMER USER [facility] Jan 26, 2022 03:00 PM VA-TOBACCO QUIT 15 YRS OR MORE [facility] Dec 21, 2020 09:30 AM VA-TOBACCO FORMER USER [facility] Dec 21, 2020 09:30 AM VA-TOBACCO QUIT 15 YRS OR MORE [facility] Sep 16, 2019 11:32 AM VA-TOBACCO FORMER USER [facility] Sep 16, 2019 11:32 AM VA-TOBACCO QUIT 15 YRS OR MORE [facility] Oct 30, 2018 10:31 AM VA-TOBACCO FORMER USER [facility] Oct 30, 2018 10:31 AM VA-TOBACCO QUIT 5 TO < 15 YRS [facility] Jul 04, 2017 10:51 AM QUIT TOBACCO USE 1-7 YEARS AGO [facility] Apr 05, 2017 11:03 AM QUIT TOBACCO USE 1-7 YEARS AGO [facility] July 21, 2016 09:23 AM QUIT TOBACCO USE 1-7 YEARS AGO [facility] Jun 17, 2015 02:04 PM QUIT TOBACCO USE > 7 YEARS AGO [facility] Encounter Notes: All associated encounter notes This section contains the clinical notes associated to the Encounter. Date/Time Encounter Note(s) Provider Source Aug 14, 2023 09:57 AM CLINICAL NURSE SPE CIALIST NOTE: LOCAL TITLE: CLINICAL NURSE SPECIALIST/MENTAL HEALTH STANDARD TITLE: CLINICAL NURSE SPECIALIST NOTE DATE OF NOTE: AUG 14, 2023@09:57 ENTRY DATE: AUG 14, 2023@09:57:32 AUTHOR: SARAVANAN ROWE EXP COSIGNER: URGENCY: STATUS: [...] Dx PTSD-chronic- medication management In person- 25 min Mood is stable - His passed in August, grie, He has assistance from his children and strong family support. He states that he three sisters that have medical problems that he is concerned about and he is helping them- one passed recently. He is focused on helping his family- his passed one year ago. Relevant mental status exam or other objective [...] antidepressant . We discussed the grieving process and how he is coping. Reviewed how [...] this patient. I asked the patient call [phone] ([facility] [place] or to come to open access if needed Medication Reconciliation: Outpatient: Has the patient been taking medications as documented in the EMLR? YES: The patient has been taking medications as documented in the EMLR. Essential Medication List for Review used to complete this medication reconciliation. INCLUDED IN THIS LIST: Alphabetical list of active outpatient prescriptions dispensed from this [facility] (local) and dispensed from another [place] or [facility] facility (remote) as well as [...] whether with a VA or non-VA provider. Suicide Screen: C-SSRS Screening [place] Suicide Severity Rating Scale (C-SSRS) screener 1. Over the past month, have you wished you were or wished you could go to sleep and not wake up? No 2. Over the past month, have you had any actual thoughts of killing yourself? No 3. Over the past month, have you been thinking about how you might do this? Response not required due to responses to other questions. 4. Over the past month, have you had these thoughts and had some intention of acting on them? Response not required due to responses to other questions. 5. Over the past month, have you started to work out or worked out the details of how to kill yourself? Response not required due to responses to other questions. 6. If yes, at any time in the past month did you intend to carry out this plan? Response not required due to responses to other questions. 7. In your lifetime, have you ever done anything, started to do anything, or prepared to do anything to end your life (for example, collected pills, obtained a gun, gave away valuables, went to the roof but didn't jump)? No 8. If YES, was this within the past 3 months? Response not required due to responses to other questions. /vanesa/ Saravanan Rowe APRN, STAFF CLINICAL NURSE SPECIALIST Signed: 08/14/2023 10:16 SARAVANAN ROWE
== END 2024-05-05 15:46 | disposition home or self-care (01) ==
PROVIDERS: PCP Internal Medicine; Visit Provider Internal Medicine
DX: E11.65 Type 2 diabetes mellitus with hyperglycemia (principal); I10 Essential (primary) hypertension; E03.9 Hypothyroidism, unspecified; J43.9 Emphysema, unspecified; E78.00 Pure hypercholesterolemia, unspecified

== ENCOUNTER → 2024-05-05 14:46 | Outpatient (BNVA) | payer MEDICARE, SELFPAY | PROVIDERS: PCP Internal Medicine; Visit Provider Internal Medicine | DX: E11.65 Type 2 diabetes mellitus with hyperglycemia (principal); E03.9 Hypothyroidism, unspecified; I10 Essential (primary) hypertension; J43.9 Emphysema, unspecified; E78.00 Pure hypercholesterolemia, unspecified | CPT/HCPCS: 83036; 99212 ==

== ENCOUNTER 2024-08-11 09:21 | Outpatient (AMB) | payer MEDICARE, SELFPAY ==
[2024-08-11 09:27] VITALS: BP 142/80; PULSE 87; O2SAT 98; BMI 28.6
--- NOTE | 2024-08-11 09:27 | MHC.PC.OV ---
Vital Signs 08/11/24 09:27 Height 5 ft 10 in Weight 199 lb BMI 28.6 BP 142/80 H Blood Pressure Location Lt brachial Position Sitting Pulse 87 Pulse Source Pulse Oximeter Pulse Oximetry (%) 98 Oxygen Delivery Method Room Air Intake Visit Reasons: DM, HTN Allergies hydromorphone [Dilaudid] Adverse Reaction (Unknown, Verified 08/11/24 09:27) Unknown Tobacco use date assessed: 05/05/24 Fall risk assessment: No Falls in past year Last assessed Fall Risk: 08/11/24 Dental Screening Dental Screen Date: 05/05/24 HPI DM, HTN HPI Details BP high today as patient is in a trial where granddaughter was murdered 2020- is in court. 83-year-old overweight male with diabetes mellitus hypertension hypercholesterolemia hypothyroid last blood work was done in September 2023. Patient will need blood work this time. PFSH Medical History TIA (transient ischemic attack) Hypercholesterolemia COPD (chronic obstructive pulmonary disease) Carpal tunnel syndrome, left Hypothyroid Type 2 diabetes mellitus with hyperglycemia PTSD (post-traumatic stress disorder) AAA (abdominal aortic aneurysm) Gout Hypertension Overweight (BMI 25.0-29.9) Degenerative disc disease Insomnia Alcohol abuse Surgical History History of cataract surgery History of colonoscopy History of lumbar fusion History of carpal tunnel release History of lumbar surgery H/O pelvic surgery Varicocele H/O left wrist surgery Family History Father CVD (cardiovascular disease) Cancer Mother Cancer Social History Housing: House Alcohol intake: current Alcohol intake frequency: holidays/special occasions only Comment: Q 2 week 1 beer Patient Tobacco Use Status: Former Tobacco user Tobacco use type: Cigarette Years Smoked: stopped 1976 e-Cigarette/Vaping Use: Never Used Second Hand Smoke Exposure: Yes service: Yes Current occupational status: retired Cognitive needs: No Hearing needs: No Vision needs: Yes Questionnaire PHQ-9 Over the last 2 weeks, how often have you been bothered by any of the following problems? 1. Little interest or pleasure in doing things: not at all 2. Feeling down, depressed, or hopeless: not at all 3. Trouble falling or staying asleep, or sleeping too much: not at all 4. Feeling tired or having little energy: not at all 5. Poor appetite or overeating: not at all 6. Feeling bad about yourself - or that you are a failure or have let yourself or your family down: not at all 7. Trouble concentrating on things, such as reading the newspaper or watching television: not at all 8. Moving or speaking so slowly that other people could have noticed. Or the opposite - being so fidgety or restless that you have been moving around a lot more than usual: not at all 9. Thoughts that you would be better off or of hurting yourself in some way: not at all Total score: 0 Depression Screening Interpretation: Negative Depression Screening Done: Yes Source: Developed by Drs. Vicente Rocha, Tessa Mantilla, Marcelo Jacobson and colleagues, with an educational leeann from [employer]. Thrive Questionnaire Date Thrive assessed: 05/05/24 I am a: Patient What is your living situation today?: I have a steady place to live Within the past 12 months, did the food you bought not last and you didn't have the money to get more?: Never true Within the past 12 months, did you worry whether your food would run out before you got money to buy more?: Never true Do you have trouble paying for medicines?: No Do you have trouble getting transportation to medical appointments?: No Do you have trouble paying your heating and electricity bill?: No Do you have trouble taking care of your child, family member or friend?: No Do you have trouble with day-to-day activities such as bathing, preparing meals, shopping, managing finances, etc.?: No Are you currently unemployed and looking for a job?: No Are you interested in more education?: No Please select the resources that you would like help with: None Currently or been in a relationship where the following occur: No concerns reported THRIVE Score: 0 AUDIT C Alcohol Use Questionnaire (AUDIT-C) 1. How often do you have a drink containing alcohol?: Monthly or less 2. How many drinks containing alcohol do you have on a typical day when you are drinking?: 1 or 2 3. How often do you have six or more drinks on one occasion?: Never Total Score: 1 RACHEL-7 AMB Questionnaire RACHEL-7 Date RACHEL - 7 assessed: 05/05/24 Feeling nervous, anxious, or on edge: 0 = Not at all Not being able to stop or control worryin = Not at all Worrying too much about different things: 0 = Not at all Trouble relaxin = Not at all Being so restless that it is hard to sit still: 0 = Not at all Becoming easily annoyed or irritable: 0 = Not at all Feeling afraid as if something awful might happen: 0 = Not at all Total RACHEL-7 score (0-4 normal; 5-9 mild; 10-14 moderate; 15-21 severe): 0 Source: Developed by Drs. Vicente Rocha, Tessa Mantilla, Marcelo Jacobson and colleagues, with an educational leeann from [employer]. Physical exam (Primary Care) Vital Signs: Last Vital Signs Pulse 87 08/11/24 09:27 BP 142/80 H 08/11/24 09:27 Pulse Ox 98 08/11/24 09:27 Oxygen Delivery Method Room Air 08/11/24 09:27 BMI result Body Mass Index 28.6 Tobacco/Smoking Status: Tobacco use Status Tobacco use date assessed 05/05/24 08/11/24 09:28 Patient Tobacco Use Status Former Tobacco user 08/11/24 09:28 Tobacco use type Cigarette 08/11/24 09:28 e-Cigarette/Vaping Use Never Used 08/11/24 09:28 PHQ-9: PHQ-9 Score PHQ-9: Total score 0 08/11/24 09:42 Depression Screening Interpretation: Negative Thrive Assessment: Date of Thrive Assessment Date Thrive assessed 05/05/24 08/11/24 09:28 Currently or been in a relationship where the following occur: No concerns reported Const General: alert; No acute distress Eyes Conjunctivae: conjunctivae normal Resp Auscultation: clear to auscultation bilaterally Cardio Rate: regular rate Rhythm: regular rhythm GI Inspection: Yes normal to inspection Extrem General: Yes normal to inspection and No edema Results AMB Hemoglobin A1c AMB Hemoglobin A1c 6.5 % Last Edit by Skylar Holliday CMA on 08/11/24 09:47 Coding Level of Care Code Est Pt Level 4 (55481) Complex EM visit Add On G2211 Diagnoses Type 2 diabetes mellitus with hyperglycemia, without long-term current use of insulin E11.65 Diabetes mellitus detention insulin use: without intermediate project manager use Essential hypertension I10 Hypertension type: essential hypertension Acquired hypothyroidism E03.9 Hypothyroidism type: acquired Pulmonary emphysema, unspecified emphysema type J43.9 COPD type: emphysema Emphysema type: unspecified Hypercholesterolemia E78.00 Abdominal aortic aneurysm (AAA) without rupture I71.4 Presence of rupture: without rupture Assessment & Plan Assessment & Plan (1) Type 2 diabetes mellitus with hyperglycemia: Comment: [facility], maculardeg Code(s): E11.65 - Type 2 diabetes mellitus with hyperglycemia Category: Medical Qualifiers: Diabetes mellitus detention insulin use: without intermediate project manager use Qualified Code(s): E11.65 - Type 2 diabetes mellitus with hyperglycemia Plan: Decrease the amount of carbohydrate intake, pasta, bread, rice and potatoes are all sugar and that is aside from all the sweet stuff, remember that fruits are good but they are Sweet also. Hemoglobin A1c goal of less than 7.0. Patient on metformin a 1000 mg twice a day (2) Hypertension: Code(s): I10 - Essential (primary) hypertension Category: Medical Qualifiers: Hypertension type: essential hypertension Qualified Code(s): I10 - Essential (primary) hypertension Plan: Continue with blood pressure medication. Decrease salt intake and exercise takes amlodipine 5 mg once a day lisinopril 40 mg once a day (3) Hypothyroid: Code(s): E03.9 - Hypothyroidism, unspecified Category: Medical Qualifiers: Hypothyroidism type: acquired Qualified Code(s): E03.9 - Hypothyroidism, unspecified Plan: Continue with thyroid medication blood work requested (4) COPD (chronic obstructive pulmonary disease): Code(s): J44.9 - Chronic obstructive pulmonary disease, unspecified Category: Medical Qualifiers: COPD type: emphysema Emphysema type: unspecified Qualified Code(s): J43.9 - Emphysema, unspecified Plan: Patient is stable (5) Hypercholesterolemia: Code(s): E78.00 - Pure hypercholesterolemia, unspecified Category: Medical Plan: Avoid fried foods, chicken skin, eggs, butter margarine, pastries and meat. Be it pork or beef they have a lot of cholesterol LDL goal of less than 100 and triglyceride of less than 150 on fenofibrate and atorvastatin. Patient needs blood work (6) AAA (abdominal aortic aneurysm): Comment: 2012 3-3.2 cm, 2013 4.3, August 2015 3-3.3 for cm, January [address] Bains, July 2020 2.6 x 3 cm, September 2023 3 cm Code(s): I71.4 - Abdominal aortic aneurysm, without rupture Category: Medical Qualifiers: Presence of rupture: without rupture Qualified Code(s): I71.4 - Abdominal aortic aneurysm, without rupture Plan: Continuing to monitor patient follows up with vascular surgeon. September 2023 last test Orders: Orders AMB Hemoglobin A1c Today Z13.9 - Encounter for screening, unspecified
--- OUTSIDE RECORDS SUMMARY | 2024-08-11 10:02 | XMS_ITS | Encounter Summary ---
Author Name [facility] [place] Organization [facility] [place] Address [address] [place] [id number] Care Team Providers Care Care Team Assistant Name Role Phone ELSI MOSES Primary Care [...] SUPPLEMEN JUJU MEDEX 2 Sep 09, 2014 [id number] SINA FRANCIS PATIENT [place] SUPPLEMEN JUJU MEDEX 2 Sep 09, 2014 [id number] [phone] DESJHONYURIE SINA ANGEL PATIENT [place] SUPPLEMEN JUJU [place] [facility] Sep 09, 2014 [id number] SHAWNADONOVANE SINA ANGEL PATIENT MEDICARE (WNR) MEDICARE ([place]) PART A Sep 10, 2007 PART A [id number] [phone] SHAWNADONOVANE SINA ANGEL PATIENT MEDICARE (WNR) MEDICARE (M) PART B Sep 10, 2007 PART B [id number] ROSIEE SINA ANGEL PATIENT Selected Encounter This section includes the information on record at [place] for the Encounter. Date/Time Encounter Type Encounter Description Reason Provider Source Feb 12, 2024 01:00 PM OFFICE O/P EST LOW 20 MIN [facility] - IND ICD-10-CM F43.10 Post-traumatic stress disorder, unspecified SARAVANAN ROWE Bubba Encounter Template Text not used by [place] Assessments - Encounter Diagnoses This section includes the primary and secondary diagnoses documented for the Encounter. Date/Time Primary/Secondary Diagnosis Diagnosis Name Provider Source Feb 12, 2024 02:00 PM PRIMARY Post-traumatic stress disorder, unspecified ROWE,SARAVANAN Ruiz [place] Plan of Treatment: Future Appointments (+ 6 months) and Future Tests (+/- 45 days) The Plan of Treatment section includes future care activities for the patient from all [place] [facility]. This section includes future appointments and future orders which are active, pending or scheduled. Future Appointments This section includes appointments that were scheduled to occur 6 months from the date of the Encounter, up to a maximum of 20 appointments. The data comes from all [place] treatment facilities. Appointment Date/Time Appointment Type Appointme nt Facility Name July 15, 2024 10:30 AM AMBULATORY - PSYCHIATRY [facility] Social History: Smoking Status (Most current) and Tobacco Use (All prior to encounter date) This section includes the most current, and the historical, smoking and tobacco- related health factors from the [place] facility where the Encounter took place. Current Smoking Status This section includes the most current smoking, or tobacco-related health factor, from the [place] facility where the Encounter took place. Date/Time Current Smoking Status Comment Facil ity Feb 06, 2023 11:00 AM [place]-TOBACCO QUIT 5 TO < 15 YRS [place] Tobacco Use History This section includes a history of the smoking, or tobacco-related health factors, that were collected on or before the date of the Encounter. The data comes from the [place] facility where the Encounter took place. Date/Time Smoking Status/Tobacco Use Comment F acility Feb 06, 2023 11:00 AM [place]-TOBACCO QUIT 5 TO < 15 YRS [place] Jan 26, 2022 03:00 PM VA-TOBACCO FORMER USER [place] Jan 26, 2022 03:00 PM VA-TOBACCO QUIT 15 YRS OR MORE [place] Dec 21, 2020 09:30 AM VA-TOBACCO FORMER USER [place] Dec 21, 2020 09:30 AM [place]-TO[place]ACCO QUIT 15 YRS OR MORE [place] Sep 16, 2019 11:32 AM VA-TOBACCO FORMER USER [place] Sep 16, 2019 11:32 AM VA-TOBACCO QUIT 15 YRS OR MORE [place] Oct 30, 2018 10:31 AM VA-TOBACCO FORMER USER [place] Oct 30, 2018 10:31 AM VA-TOBACCO QUIT 5 TO < 15 YRS [place] Jul 04, 2017 10:51 AM QUIT TOBACCO USE 1-7 YEARS AGO [place] Apr 05, 2017 11:03 AM QUIT TOBACCO USE 1-7 YEARS AGO [place] July 21, 2016 09:23 AM QUIT TOBACCO USE 1-7 YEARS AGO [place] Jun 17, 2015 02:04 PM QUIT TOBACCO USE > 7 YEARS AGO [place] Encounter Notes: All associated encounter notes This [...] this patient. I asked the patient call [phone] ([facility] [place]) or to come to open access if needed /vanesa/ Saravanan Rowe APRN, STAFF CLINICAL NURSE SPECIALIST Signed: 02/12/2024 14:00 SARAVANAN ROWE
== END 2024-08-11 09:52 | disposition home or self-care (01) ==
LOC: HO.HMCH 09:23
PROVIDERS: PCP Internal Medicine; Visit Provider Internal Medicine
DX: E11.65 Type 2 diabetes mellitus with hyperglycemia (principal); I10 Essential (primary) hypertension; E03.9 Hypothyroidism, unspecified; J43.9 Emphysema, unspecified; E78.00 Pure hypercholesterolemia, unspecified; I71.40 Abdominal aortic aneurysm, without rupture, unspecified; Z13.9 Encounter for screening, unspecified

== ENCOUNTER → 2024-08-11 09:21 | Outpatient (BNVA) | payer MEDICARE, SELFPAY | PROVIDERS: PCP Internal Medicine; Visit Provider Internal Medicine | DX: E11.65 Type 2 diabetes mellitus with hyperglycemia (principal); E03.9 Hypothyroidism, unspecified; I10 Essential (primary) hypertension; J43.9 Emphysema, unspecified; E78.00 Pure hypercholesterolemia, unspecified; I71.40 Abdominal aortic aneurysm, without rupture, unspecified | CPT/HCPCS: 83036; 99212 ==

== ENCOUNTER 2024-10-28 12:36 | Outpatient (AMB) | payer MEDICARE, SELFPAY ==
[2024-10-28 12:39] VITALS: BP 134/76; PULSE 75; O2SAT 97; BMI 28.0
--- NOTE | 2024-10-28 12:39 | AM.OFFVISMDC ---
Intake Vital Signs 10/28/24 12:39 Height 5 ft 10 in Weight 195 lb BMI 28.0 BP 134/76 Blood Pressure Location Lt brachial Position Sitting Pulse 75 Pulse Source Pulse Oximeter Pulse Oximetry (%) 97 Oxygen Delivery Method Room Air Intake Visit Reasons: V G0439 Allergies hydromorphone (Dilaudid) Adverse Reaction (Unknown, Verified 10/28/24 12:39) Unknown Medication List - Last Reconciled 10/28/24 by Alan Garces MD amlodipine 5 mg PO DAILY aspirin (Adult Aspirin Regimen) 81 mg PO DAILY atorvastatin 20 mg PO DAILY cholecalciferol (vitamin D3) 25 mcg PO DAILY colchicine 0.6 mg PO DAILY fenofibrate 160 mg PO DAILY levothyroxine 88 mcg PO QAM 90 days lisinopril 40 mg PO DAILY metformin 1,000 mg PO BIDWMEAL 90 days tramadol 1-2 tablets PO every 6 to 8 hours; 30 days vitamins A,C,N-kzpe-hpotgu 4,296 mcg-226 mg-90 mg (PreserVision AREDS) 1 cap PO BID HPI SWV G0439 HPI Details [place] of care: [facility] vascular Services for vascular surgeon gastroenterology Dr. Perez cardiology [facility] cardiology [facility], [facility] Medical History TIA (transient ischemic attack) Hypercholesterolemia COPD (chronic obstructive pulmonary disease) Carpal tunnel syndrome, left Hypothyroid Type 2 diabetes mellitus with hyperglycemia PTSD (post-traumatic stress disorder) AAA (abdominal aortic aneurysm) Gout Hypertension Overweight (BMI 25.0-29.9) Degenerative disc disease Insomnia Alcohol abuse Surgical History History of cataract surgery History of colonoscopy History of lumbar fusion History of carpal tunnel release History of lumbar surgery H/O pelvic surgery Varicocele H/O left wrist surgery Family History Father CVD (cardiovascular disease) Cancer Mother Cancer Social History Housing: House Alcohol intake: current Alcohol intake frequency: holidays/special occasions only Comment: Q 2 week 1 beer Patient Tobacco Use Status: Former Tobacco user Tobacco use type: Cigarette Years Smoked: stopped 1976 e-Cigarette/Vaping Use: Never Used Second Hand Smoke Exposure: Yes service: Yes Current occupational status: retired Cognitive needs: No Hearing needs: No Vision needs: Yes Questionnaire Medicare Wellness Checkup What is your age?: 82 or older What gender do you identify with?: male During the past 4 weeks, how much have you been bothered by emotional problems such as feeling anxious, depressed, irritable, sad or downhearted, and blue?: not at all During the past 4 weeks, has your physical & emotional health limited your social activities with family, friends, neighbors, or groups?: not at all During the past 4 weeks, how much bodily pain have you generally had?: mild pain During the past 4 weeks, was someone available to help you if you needed & wanted help?: yes, as much as I wanted During the past 4 weeks, what was the hardest physical activity you could do for at least 2 minutes?: moderate Can you get to places out of walking distance without help? (For eg., can you travel alone on buses, taxis or drive your car?): Yes Can you go shopping for groceries or clothes without someone's help?: Yes Can you prepare your own meals?: Yes Can you do your housework without help?: Yes Because of any health problems, do you need the help of another person with your personal care needs such as eating, bathing, dressing or getting around the house?: No Can you handle your own money without help?: Yes During the past 4 weeks, how would you rate your health in general?: good During the past 4 weeks how have things been going for you?: pretty well Are you having difficulties driving your car?: no Do you always fasten your seat belt when you are in a car?: yes, usually During past 4 weeks, have you been bothered by the following: never: Falling or dizzy when standing up, Sexual problems?, Trouble eating well?, Teeth or denture problems? and Problems using the telephone? and seldom: Tiredness or fatigue? Have you fallen 2 or more times in the past year?: No Are you afraid of falling?: No Are you a smoker?: no During the past 4 weeks, how many drinks of wine, beer, or other alcoholic beverages did you have?: no alcohol at all Do you exercise for about 20 minutes 3 or more times a week?: yes, most of the time Have you been given information to help with the following?: yes: Hazards in your house that might hurt you? and yes: Keeping track of your medications? How often do you have trouble taking medicines the way you have been told to take them?: I always take medicine as prescribed How confident are you that you can control & manage most of your health problems?: very confident What is your race?: White PHQ-9 Over the last 2 weeks, how often have you been bothered by any of the following problems? 1. Little interest or pleasure in doing things: not at all 2. Feeling down, depressed, or hopeless: not at all 3. Trouble falling or staying asleep, or sleeping too much: not at all 4. Feeling tired or having little energy: not at all 5. Poor appetite or overeating: not at all 6. Feeling bad about yourself - or that you are a failure or have let yourself or your family down: not at all 7. Trouble concentrating on things, such as reading the newspaper or watching television: not at all 8. Moving or speaking so slowly that other people could have noticed. Or the opposite - being so fidgety or restless that you have been moving around a lot more than usual: not at all 9. Thoughts that you would be better off or of hurting yourself in some way: not at all Total score: 0 Depression Screening Interpretation: Negative Depression Screening Done: Yes Source: Developed by Drs. Vicente Rocha, Tessa Mantilla, Marcelo Jacobson and colleagues, with an educational leeann from [employer]. Thrive Questionnaire Date Thrive assessed: 10/28/24 I am a: Patient What is your living situation today?: I have a steady place to live Within the past 12 months, did the food you bought not last and you didn't have the money to get more?: Never true Within the past 12 months, did you worry whether your food would run out before you got money to buy more?: Never true Do you have trouble paying for medicines?: No Do you have trouble getting transportation to medical appointments?: No Do you have trouble paying your heating and electricity bill?: No Do you have trouble taking care of your child, family member or friend?: No Do you have trouble with day-to-day activities such as bathing, preparing meals, shopping, managing finances, etc.?: No Are you currently unemployed and looking for a job?: No Are you interested in more education?: No Please select the resources that you would like help with: None Currently or been in a relationship where the following occur: No concerns reported THRIVE Score: 0 RACHEL-7 AMB Questionnaire RACHEL-7 Date RACHEL - 7 assessed: 05/05/24 Source: Developed by Drs. Vicente Rocha, Tessa Mantilla, Marcelo Jacobson and colleagues, with an educational leeann from [employer]. Review of Systems Const Denies poor appetite and Denies weakness Eyes Denies no additional complaints ENT Reports Normal hearing present, Denies dizziness, Denies nasal congestion, Denies tinnitus and Denies sore throat Card Denies chest pain, Denies syncope, Denies rapid heart rate and Denies dyspnea Resp Denies cough and Denies dyspnea GI Denies change in stool character, Reports constipation, Denies diarrhea, Denies nausea and Denies vomiting Denies dysuria and Denies urinary frequency Neuro Reports Normal hearing present, Denies confusion, Denies dizziness, Denies syncope and Denies weakness Psych Denies confusion Physical Exam Vital Signs: Last Vital Signs Pulse 75 10/28/24 12:39 BP 134/76 10/28/24 12:39 Pulse Ox 97 10/28/24 12:39 Oxygen Delivery Method Room Air 10/28/24 12:39 BMI result Body Mass Index 28.0 Const General: No confusion Orientation/consciousness: No confusion HEENT Head: Yes normocephalic Ears: external ears normal and TM's normal bilaterally Face and sinus: Yes normal facial exam Mouth: moist mucous membranes Throat: Yes tonsils normal Eyes Conjunctivae: conjunctivae normal Pupils: Equal, round and reactive pupils present and Pupil accommodation reflex normal Direct Ophthalmoscopy: normal light reflex Neck Neck: No lymphadenopathy Thyroid: Thyroid normal Chest Chest palpation & inspection: normal inspection of the chest Resp Effort & Inspection: normal respiratory effort and no audible wheezes Auscultation: clear to auscultation bilaterally, no crackles, no wheezes and lung sounds not diminished Cardio Rate: regular rate Rhythm: regular rhythm Peripheral pulses: radial pulses present and dorsalis pedis present GI Other: guaiac negative, psotate N pedal pulse weak and pin prick good Palpation (GI): no masses Auscultation: normal bowel sounds and normoactive bowel sounds Other: mild R inguinal bulge Skin General skin exam: no rashes or lesions noted Rashes: no rashes Neuro General: No confusion Cranial nerves: Yes Equal, round and reactive pupils present and Yes Normal hearing present Cognition (Neuro): normal cognition Gait exam (Neuro): Normal gait present Motor exam (neuro): 5/5 motor strength present throughout Deep tendon reflexes (DTR's): Right brachioradialis reflex intensity grade: 2+, Left brachioradialis reflex intensity grade: 2+, Right patellar reflex intensity grade: 2+ and Left patellar reflex intensity grade: 2+ Extrem General: No edema Assessment & Plan Assessment & Plan (1) Medicare annual wellness visit, subsequent: Code(s): Z00.00 - Encounter for general adult medical examination without abnormal findings Plan: Patient is advised to eat healthy, keep well hydrated, keep active and have adequate sleep. (2) COPD (chronic obstructive pulmonary disease): Code(s): J44.9 - Chronic obstructive pulmonary disease, unspecified Qualifiers: COPD type: emphysema Emphysema type: unspecified Qualified Code(s): J43.9 - Emphysema, unspecified Plan: This is stable (3) History of lumbar surgery: Comment: L4-5 decompression 02/2012 Code(s): Z98.890 - Other specified postprocedural states Plan: Continue with pain medication as needed (4) Type 2 diabetes mellitus with hyperglycemia: Comment: [facility], [facility] Code(s): E11.65 - Type 2 diabetes mellitus with hyperglycemia Qualifiers: Diabetes mellitus intermission coordinator insulin use: without chcf use Qualified Code(s): E11.65 - Type 2 diabetes mellitus with hyperglycemia Plan: Decrease the amount of carbohydrate intake, pasta, bread, rice and potatoes are all sugar and that is aside from all the sweet stuff, remember that fruits are good but they are Sweet also. Hemoglobin A1c goal of less than 7.0. On metformin a 1000 mg twice a day (5) Hypothyroid: Code(s): E03.9 - Hypothyroidism, unspecified Qualifiers: Hypothyroidism type: acquired Qualified Code(s): E03.9 - Hypothyroidism, unspecified Plan: Continue with thyroid medication will need blood work (6) Hypercholesterolemia: Code(s): E78.00 - Pure hypercholesterolemia, unspecified Plan: Avoid fried foods, chicken skin, eggs, butter margarine, pastries and meat. Be it pork or beef they have a lot of cholesterol LDL goal of less than 100 and triglyceride of less than 150. On fenofibrate and atorvastatin. Patient needs blood work (7) Hypertension: Code(s): I10 - Essential (primary) hypertension Qualifiers: Hypertension type: essential hypertension Qualified Code(s): I10 - Essential (primary) hypertension Plan: Continue with blood pressure medication. Decrease salt intake and exercise patient is on amlodipine 5 mg once a day lisinopril 40 mg once a day blood work requested Plan History of Present Illness The patient is an 84-year-old male presenting with an annual wellness visit. He has a history of diabetes mellitus, hypertension, hypothyroidism, and chronic obstructive pulmonary disease (COPD). Additionally, he has hypercholesterolemia and a history of an abdominal aortic aneurysm. The patient also has a history of lumbar surgery. His last complete blood work was conducted on September 27, and he requires a blood count to be done. Health Maintenance Social History Review of Systems Physical Exam General: Cooperative, healthy appearing, comfortable, no acute distress and well developed Orientation: Patient oriented x3 Limitations: No limitations Head: Normal to inspection Ears: Hearing grossly normal bilaterally Nose: Normal external nose present Face and sinus: Normal facial exam Eyes: Appearance normal, both eyes and all related structures Neck: Normal visual inspection and Yes full ROM Respiratory: Normal respiratory effort and able to speak in complete sentences. Clear to auscultation bilaterally Cardiovascular: Regular rate and rhythm. Normal S1 and S2 GI: Normal to inspection. Soft to palpation and nontender Skin: No rashes or lesions noted Neuro: Patient oriented x3 Extremities: Normal to inspection Results Plan The patient's diabetes management includes maintaining a hemoglobin A1c goal of less than 7.0, with current treatment on metformin 1000 mg twice a day. For hypothyroidism, continuation of thyroid medication is advised, and blood work is necessary to monitor levels. The cholesterol management plan includes maintaining an LDL goal of less than 100 and triglycerides of less than 150, with current medications including fenofibrate and atorvastatin. Blood work is required to assess the effectiveness of the treatment. Hypertension management involves the use of amlodipine 5 mg once a day and lisinopril 40 mg once a day, with blood work requested to monitor the condition. Patient was informed and verbally consented to the use of an ambient scribe for clinic note documentation during this visit. Discussion Notes Patient Instructions Medications: Refilled tramadol 1-2 tablets PO every 6 to 8 hours; 240 tabs 0RF 30 days E11.65 - Type 2 diabetes mellitus with hyperglycemia Quality Reporting (2019) Depression/Bipolar (159/160/161/177) PHQ-9: Total score: 0 Coding Level of Care Code Medicare Subsequent (G0439) Diagnoses Medicare annual wellness visit, subsequent Z00.00 Pulmonary emphysema, unspecified emphysema type J43.9 COPD type: emphysema Emphysema type: unspecified History of lumbar surgery Z98.890 Type 2 diabetes mellitus with hyperglycemia, without long-term current use of insulin E11.65 Diabetes mellitus chcf insulin use: without intermission coordinator use Acquired hypothyroidism E03.9 Hypothyroidism type: acquired Hypercholesterolemia E78.00 Essential hypertension I10 Hypertension type: essential hypertension
--- OUTSIDE RECORDS SUMMARY | 2024-10-28 13:48 | XMS_ITS | Clinical Summary ---
Author Organization [facility] Address [address] [place] [address] Care Team Providers Care Relay Engineer Name Role Phone Alan Garces MD Primary Care Provider [phone] Social History Tobacco Use Types Packs/Day Years [...] Vaccines (1 of 2) 1992 RSV Immunization Adult Patie nts (1 - 1-dose 75+ series) 2017 COVID-19 Vaccine ( - 2023-2 5 season) 2023 Depression Screening 03/12/2024 Influenza Vaccine (#1) 2024 HIB Vaccines Aged Out No longer eligi [...] age to complete this topic Meningococcal B Vaccine Aged Out No l onger eligible based on patient's age to complete this topic RSV Immunization Patients Un xiomara 20 months Aged Out No longer eligible b ased on patient's age to complete this topic Varicella Vaccines Aged Out No longer eligible based on patient's age to complete this topic Care Teams Relay Engineer Relationship Specialty Start Date End Date Po, MD Alan [address] [place] [address] [address] [facility] [place] [address] PCP - General Internal Medicine 12/21/16
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
== END 2024-10-28 13:41 | disposition home or self-care (01) ==
LOC: HO.HMCH 12:37
PROVIDERS: PCP Internal Medicine; Visit Provider Internal Medicine
DX: Z00.00 Encounter for general adult medical examination without abnormal findings (principal); J43.9 Emphysema, unspecified; E11.65 Type 2 diabetes mellitus with hyperglycemia; Z98.890 Other specified postprocedural states; E03.9 Hypothyroidism, unspecified; E78.00 Pure hypercholesterolemia, unspecified; I10 Essential (primary) hypertension

== ENCOUNTER 2024-11-28 13:45 | Outpatient (AMB) | payer MEDICARE, SELFPAY ==
--- OUTSIDE RECORDS SUMMARY | 2024-11-28 13:53 | XMS_ITS | Clinical Summary ---
Author Organization [facility] Address [address] [place] [address] Care Team Providers Care Senior Ios Developer Name Role Phone Alan Garces MD Primary Care Provider [phone] Social History Tobacco Use Types Packs/Day Years [...] nts (1 - 1-dose 75+ series) 2017 Depression Screening 03/12/2024 COVID-19 Vaccine (1 - 2023-2 5 season) 2024 Influenza Vaccine (#1) 2024 HIB Vaccines Aged [...] age to complete this topic Care Teams Senior Ios Developer Relationship Specialty Start Date End Date Po, MD Alan [address] [place] [address] Dr [address] [facility] [place] Ray [address] PCP - General Internal Medicine 12/21/16
[2024-11-28 13:56] VITALS: BP 148/78; PULSE 80; O2SAT 98; BMI 28.6
--- NOTE | 2024-11-28 13:56 | A.OFFPC_ITS ---
Vital Signs 11/28/24 13:56 Height 5 ft 10 in Weight 199 lb BMI 28.6 BP 148/78 H Blood Pressure Location Lt brachial Position Sitting Pulse 80 Pulse Source Pulse Oximeter Pulse Oximetry (%) 98 Oxygen Delivery Method Room Air Intake Visit Reasons: 3 Months Allergies hydromorphone (Dilaudid) Adverse Reaction (Unknown, Verified 11/28/24 13:56) Unknown Medication List - Last Reconciled 11/28/24 by Alan Garces MD amlodipine 5 mg PO DAILY aspirin (Adult Aspirin Regimen) 81 mg PO DAILY atorvastatin 20 mg PO DAILY cholecalciferol (vitamin D3) 25 mcg PO DAILY colchicine 0.6 mg PO DAILY fenofibrate 160 mg PO DAILY levothyroxine 88 mcg PO QAM 90 days lisinopril 40 mg PO DAILY metformin 1,000 mg PO BIDWMEAL 90 days tramadol 1-2 tablets PO every 6 to 8 hours; 30 days vitamins A,C,T-wqrn-wcxdya 4,296 mcg-226 mg-90 mg (PreserVision AREDS) 1 cap PO BID Tobacco use date assessed: 05/05/24 Fall risk assessment: No Falls in past year Last assessed Fall Risk: 11/28/24 Dental Screening Dental Screen Date: 05/05/24 [facility] Medical History TIA (transient ischemic attack) Hypercholesterolemia COPD (chronic obstructive pulmonary disease) Carpal tunnel syndrome, left Hypothyroid Type 2 diabetes mellitus with hyperglycemia PTSD (post-traumatic stress disorder) AAA (abdominal aortic aneurysm) Gout Hypertension Overweight (BMI 25.0-29.9) Degenerative disc disease Insomnia Alcohol abuse Surgical History History of cataract surgery History of colonoscopy History of lumbar fusion History of carpal tunnel release History of lumbar surgery H/O pelvic surgery Varicocele H/O left wrist surgery Family History Father CVD (cardiovascular disease) Cancer Mother Cancer Social History Housing: House Alcohol intake: current Alcohol intake frequency: holidays/special occasions only Comment: Q 2 week 1 beer Patient Tobacco Use Status: Former Tobacco user Tobacco use type: Cigarette Years Smoked: stopped 1976 e-Cigarette/Vaping Use: Never Used Second Hand Smoke Exposure: Yes service: Yes Current occupational status: retired Cognitive needs: No Hearing needs: No Vision needs: Yes Questionnaire Thrive Questionnaire Date Thrive assessed: 08/11/24 I am a: Patient What is your living situation today?: I have a steady place to live Within the past 12 months, did the food you bought not last and you didn't have the money to get more?: Never true Within the past 12 months, did you worry whether your food would run out before you got money to buy more?: Never true Do you have trouble paying for medicines?: No Do you have trouble getting transportation to medical appointments?: No Do you have trouble paying your heating and electricity bill?: No Do you have trouble taking care of your child, family member or friend?: No Do you have trouble with day-to-day activities such as bathing, preparing meals, shopping, managing finances, etc.?: No Are you currently unemployed and looking for a job?: No Are you interested in more education?: No Please select the resources that you would like help with: None Currently or been in a relationship where the following occur: No concerns reported THRIVE Score: 0 RACHEL-7 AMB Questionnaire RACHEL-7 Date RACHEL - 7 assessed: 05/05/24 Source: Developed by Drs. Vicente Rocha, Tessa Mantilla, Marcelo Jacobson and colleagues, with an educational leeann from [employer]. Physical exam (Primary Care) Vital Signs: Last Vital Signs Pulse 80 11/28/24 13:56 BP 148/78 H 11/28/24 13:56 Pulse Ox 98 11/28/24 13:56 Oxygen Delivery Method Room Air 11/28/24 13:56 BMI result Body Mass Index 28.6 Tobacco/Smoking Status: Tobacco use Status Tobacco use date assessed 05/05/24 11/28/24 13:57 Patient Tobacco Use Status Former Tobacco user 11/28/24 13:57 Tobacco use type Cigarette 11/28/24 13:57 e-Cigarette/Vaping Use Never Used 11/28/24 13:57 Thrive Assessment: Date of Thrive Assessment Date Thrive assessed 08/11/24 11/28/24 13:57 Currently or been in a relationship where the following occur: No concerns reported Const General: alert; No acute distress Eyes Conjunctivae: conjunctivae normal Resp Auscultation: clear to auscultation bilaterally Cardio Rate: regular rate Rhythm: regular rhythm GI Inspection: Yes normal to inspection Extrem General: Yes normal to inspection and No edema Results AMB Hemoglobin A1c AMB Hemoglobin A1c 6.4 % Last Edit by Skylar Holliday CMA on 11/28/24 14 :50 Results Reviewed Results Reviewed: Laboratory Last Values Hgb A1c (Clinic) 6.4 % (4.0-6.0) H 11/28/24 13:57 Coding Level of Care Code Est Pt Level 4 (80381) Complex EM visit Add On G2211 Diagnoses Type 2 diabetes mellitus with hyperglycemia, without long-term current use of insulin E11.65 Diabetes mellitus intermediate insulin use: without intermediate use Acquired hypothyroidism E03.9 Hypothyroidism type: acquired Hypercholesterolemia E78.00 Essential hypertension I10 Hypertension type: essential hypertension History of lumbar surgery Z98.890 Assessment & Plan Assessment & Plan (1) Type 2 diabetes mellitus with hyperglycemia: Comment: [facility] Code(s): E11.65 - Type 2 diabetes mellitus with hyperglycemia Category: Medical Qualifiers: Diabetes mellitus intermediate insulin use: without biological sciences instructor use Qualified Code(s): E11.65 - Type 2 diabetes mellitus with hyperglycemia Plan: Decrease the amount of carbohydrate intake, pasta, bread, rice and potatoes are all sugar and that is aside from all the sweet stuff, remember that fruits are good but they are Sweet also. Hemoglobin A1c goal less than 7.0 on metformin a 1000 mg twice a day (2) Hypothyroid: Code(s): E03.9 - Hypothyroidism, unspecified Category: Medical Qualifiers: Hypothyroidism type: acquired Qualified Code(s): E03.9 - Hypothyroidism, unspecified Plan: Continue with thyroid medication (3) Hypercholesterolemia: Code(s): E78.00 - Pure hypercholesterolemia, unspecified Category: Medical Plan: Avoid fried foods, chicken skin, eggs, butter margarine, pastries and meat. Be it pork or beef they have a lot of cholesterol LDL goal of less than 100 and triglyceride of less than 150. Patient do need blood work (4) Hypertension: Code(s): I10 - Essential (primary) hypertension Category: Medical Qualifiers: Hypertension type: essential hypertension Qualified Code(s): I10 - Essential (primary) hypertension Plan: Continue with blood pressure medication. Decrease salt intake and exercise on lisinopril 40 mg once a day amlodipine 5 mg once a day declined additional med (5) History of lumbar surgery: Comment: L4-5 decompression 02/2012 Code(s): Z98.890 - Other specified postprocedural states Category: Surgical Plan: Narcotic pain meds: Is being prescribed with the understanding that these medications are potentially addictive and should be used only when absolutely necessary and must always be secured. Any remaining pills should be safely disposed off appropriately. Patient is advised that narcotics can impaired judgment and one should not drive or operate heavy machinery while taking these medications. Never share these medications with anybody and do not leave them unattended. They will not be replaced under any circumstances. Plan History of Present Illness The patient is an 84-year-old male presenting with a follow-up for chronic conditions and preventative care. The patient has a history of diabetes mellitus, with a recent hemoglobin A1c of 6.5 in August, indicating good glycemic control. He is currently on metformin 1000 mg twice a day. Hypertension is managed with lisinopril 40 mg once a day and amlodipine 5 mg once a day. The patient's blood pressure was noted to be mildly elevated during the visit, attributed to recent physical activity. The patient has a history of hypothyroidism and continues with thyroid medication. Chronic Obstructive Pulmonary Disease (COPD) is part of the patient's medical h istory, though specific management details were not discussed. Hypercholesterolemia is being monitored, with a recent cholesterol test in January 2024 showing favorable results. The patient has an abdominal aortic aneurysm that is being monitored. Preventative care includes a colonoscopy performed in April 2022 and a complete blood workup in September 2023. Health Maintenance - Colonoscopy performed in April 2022 - Complete blood workup in September 2023 - Cholesterol test in January 2024 with favorable results Social History - Reports occasional dining out at large restaurants Review of Systems - Cardiovascular: Reports mild elevation in blood pressure, denies chest pain or palpitations - Endocrine: Denies symptoms of hyperglycemia or hypothyroidism Physical Exam - Cardiovascular: Blood pressure mildly elevated Results - Labs: Hemoglobin A1c in August was 6.5 - Labs: Cholesterol test in January 2024 showed favorable results Plan Patient was informed and verbally consented to the use of an ambient scribe for clinic note documentation during this visit. 1. Diabetes Mellitus The patient's diabetes mellitus is currently managed with metformin 1000 mg twice a day, with a target hemoglobin A1c of less than 7.0. The recent hemoglobin A1c was 6.5, indicating good control. 2. Hypertension Hypertension is managed with lisinopril 40 mg once a day and amlodipine 5 mg once a day. The patient's blood pressure was noted to be mildly elevated during the visit, likely due to recent physical activity. 3. Hypothyroidism The patient continues with thyroid medication for hypothyroidism. 4. Chronic Obstructive Pulmonary Disease (Copd) Chronic Obstructive Pulmonary Disease (COPD) is part of the patient's medical history, though specific management details were not discussed during this visit. 5. Hypercholesterolemia Hypercholesterolemia is being monitored, with a recent cholesterol test in January 2024 showing favorable results. 6. Abdominal Aortic Aneurysm The patient has an abdominal aortic aneurysm that is being monitored. Discussion Notes During the visit, we discussed the management of diabetes mellitus with a focus on maintaining hemoglobin A1c below 7.0, which is currently well-controlled at 6.5. We also reviewed the patient's hypertension management, noting a mild elevation in blood pressure likely due to recent activity, and emphasized the importance of monitoring. The patient was advised to continue current medications for hypothyroidism and hypercholesterolemia, with recent cholesterol levels being favorable. Preventative care measures, including a recent colonoscopy and upcoming blood work, were also discussed. Patient Instructions - Continue taking metformin 1000 mg twice a day for diabetes management. - Monitor blood pressure regularly and report any significant changes. - Continue thyroid medication as prescribed. - Schedule and complete blood work before the next follow-up appointment on February 13. - Maintain a healthy diet and exercise routine to manage weight and cholesterol levels. Orders: Orders AMB Hemoglobin A1c Today Z13.9 - Encounter for screening, unspecified
== END 2024-11-28 14:45 | disposition home or self-care (01) ==
LOC: HO.HMCH 13:46
PROVIDERS: PCP Internal Medicine; Visit Provider Internal Medicine
DX: E11.65 Type 2 diabetes mellitus with hyperglycemia (principal); E03.9 Hypothyroidism, unspecified; E78.00 Pure hypercholesterolemia, unspecified; I10 Essential (primary) hypertension; Z98.890 Other specified postprocedural states; Z13.9 Encounter for screening, unspecified

== ENCOUNTER → 2024-11-28 13:45 | Outpatient (BNVA) | payer MEDICARE, SELFPAY | PROVIDERS: PCP Internal Medicine; Visit Provider Internal Medicine | DX: E11.65 Type 2 diabetes mellitus with hyperglycemia (principal); E03.9 Hypothyroidism, unspecified; E78.00 Pure hypercholesterolemia, unspecified; I10 Essential (primary) hypertension; Z98.890 Other specified postprocedural states | CPT/HCPCS: 83036; 99212 ==

== ENCOUNTER 2025-02-09 11:24 | Outpatient (REF) | payer MEDICARE, SELFPAY ==
[2025-02-09 11:44] LABS: MANUAL DIFF FLAG NO
[2025-02-09 12:17] LABS: Hematocrit 40.5 % (42.0-52.0); Hemoglobin 13.1 g/dl (14.0-18.0); Imm Gran Abs Auto 0.06 X10*3/uL (0.00-0.03); Imm Gran Pct Auto 0.9 % (0.0-0.4); Lymphocytes Absolute Auto 1.4 X10*3/uL (1.2-4.9); Mean Corpuscular HGB Conc 32.3 g/dl (31.0-36.0); Mean Corpuscular Hemoglobin 29.8 pg (27.0-33.0); Mean Corpuscular Volume 92.0 fL (80.0-98.0); NRBC Abs Auto 0.000 X10*3/uL (0.0-0.012); NRBC Pct Auto 0.0 /100WBC (0.0-0.2); Platelet Count 247 X10*3/uL (160-400); Red Blood Count 4.40 X10*6/uL (4.60-5.80); White Blood Count 6.5 X10*3/uL (4.8-10.8)
[2025-02-09 12:55] LABS: Microalbum/Creatinine Ratio Ur 8.8 ug/mg cr (<30)
[2025-02-09 13:00] LABS: Alanine Aminotransferase 25 U/L (0-40); Albumin Level 4.6 g/dL (3.5-5.0); Alkaline Phosphatase 60 U/L (39-117); Anion Gap 13 (12-20); Aspartate Amino Transferase 34 U/L (5-37); Blood Urea Nitrogen 30 mg/dL (9-16); Calcium 10.0 mg/dL (8.4-10.2); Carbon Dioxide 24 mmol/L (22-29); Chloride 110 mmol/L (96-108); Cholesterol 166 mg/dL (<200); Estimated Glomerular Filt Rate 57; HDL Cholesterol 34 mg/dL (>40); Potassium 4.9 mmol/L (3.3-5.1); Sodium 142 mmol/L (135-145); Total Protein 7.3 g/dL (6.5-8.0); Triglycerides 222 mg/dL (<150)
[2025-02-09 13:18] LABS: Free T4 (Free Thyroxine) 0.98 ng/dL (0.71-1.85); Thyroid Stimulating Hormone 2.48 uIU/mL (0.32-4.0)
[2025-02-09 13:19] LABS: Folate 7.6 ng/mL (> or = 4.0); Vitamin B12 216 pg/mL (200-900)
--- OUTSIDE RECORDS SUMMARY | 2025-02-09 15:08 | XMS_ITS | Clinical Summary ---
Author Organization [facility] Address [address] [place] [address] Care Team Providers Care Superintendent Generating [employer] Name Role Phone Alan Garces MD Primary Care Provider [phone] Social History Tobacco Use Types Packs/Day Years [...] Depression Screening 03/12/2024 COVID-19 Vaccine (1 - 2024-2 6 season) 2024 Influenza Vaccine (#1) 2024 HIB [...] age to complete this topic Care Teams Superintendent [employer]ating [employer] Relationship Specialty Start Date End Date Po, MD Alan [address] [place] [address] Dr [address] [facility] JAMISON Ray [address] PCP - General Internal Medicine 12/21/16
== END 2025-02-09 11:25 | disposition home or self-care (01) ==
LOC: HO.LAB 11:24
PROVIDERS: PCP Internal Medicine; Visit Provider Internal Medicine
DX: E11.65 Type 2 diabetes mellitus with hyperglycemia (principal); E78.00 Pure hypercholesterolemia, unspecified
CPT/HCPCS: 36415; 80053; 80061; 82043; 82570; 82607; 82746; 83036; 84439; 84443; 85025

== ENCOUNTER 2025-02-12 13:59 | Outpatient (AMB) | payer MEDICARE, SELFPAY ==
--- NOTE | 2025-02-12 14:00 | A.OFFPC_ITS ---
Vital Signs 02/12/25 14:01 Height 5 ft 10 in Weight 198 lb BMI 28.4 BP 140/78 H Blood Pressure Location Lt brachial Position Sitting Pulse 76 Pulse Source Pulse Oximeter Pulse Oximetry (%) 97 Oxygen Delivery Method Room Air Intake Visit Reasons: CLBP Allergies hydromorphone (Dilaudid) Adverse Reaction (Unknown, Verified 02/12/25 14:01) Unknown Medication List - Last Reconciled 02/12/25 by Alan Garces MD amlodipine 5 mg PO DAILY aspirin (Adult Aspirin Regimen) 81 mg PO DAILY atorvastatin 20 mg PO DAILY cholecalciferol (vitamin D3) 25 mcg PO DAILY colchicine 0.6 mg PO DAILY cyanocobalamin (vitamin B-12) 1,000 mcg PO DAILY fenofibrate 160 mg PO DAILY levothyroxine 88 mcg PO QAM 90 days lisinopril 40 mg PO DAILY metformin 1,000 mg PO BIDWMEAL 90 days tramadol 1-2 tablets PO every 6 to 8 hours; 30 days vitamins A,C,S-sdeb-cwndhp 4,296 mcg-226 mg-90 mg (PreserVision AREDS) 1 cap PO BID Tobacco use date assessed: 05/05/24 Fall risk assessment: No Falls in past year Last assessed Fall Risk: 02/12/25 Dental Screening Dental Screen Date: 05/05/24 HPI HPI Comments History of Present Illness Details History of Present Illness The patient is an 84-year-old male presenting for a follow-up visit for management of his chronic conditions. His past medical history is significant for diabetes mellitus, hypertension, hypothyroidism, COPD, hypercholesterolemia, and chronic low back pain. He has a history of L4-L5 lumbar decompression surgery in February 2012. Review of recent lab work from February revealed a hemoglobin A1c of 7.2%, which is above the goal of less than 7.0. His fasting blood sugar was 127 mg/dL. The patient is managed on metformin 1,000 mg twice a day. The labs also showed mild anemia with a hemoglobin of 13.1, which is a chronic, non-severe issue. His vitamin B12 level was low. Additionally, there was evidence of dehydration with a BUN of 30 and a creatinine of 1.22. Electrolytes, liver function, folic acid, and thyroid studies were normal, and a urine test showed no proteinuria. His lipid panel showed an LDL of 88 mg/dL, which is within the goal of less than 100 mg/dL on his current atorvastatin therapy. However, his triglycerides were elevated at 222 mg/dL, an increase from a previous level of 138 mg/dL, despite being on fenofibrate. This elevation is attributed to recent increased food intake during the holiday. For health maintenance, the patient's Cologuard test was completed in April 2022. He is up to date on his vaccines, including shingles, tetanus, RSV, pneumonia, influenza, and COVID-19. He attends annual eye exams. Health Maintenance The patient confirmed he is up to date on his vaccinations and annual eye exams. He was advised on the importance of continued health precautions to avoid illnesses like the flu and COVID-19. Social History - Nutrition: The patient reported eating heavily during , which is believed to have contributed to his elevated triglyceride levels. - Housing: He lives in a home with dry h eat, which causes him to have dry skin. Results - Labs from February: - Hemoglobin A1c: 7.2% - Blood Sugar: 127 mg/dL - Hemoglobin: 13.1 g/dL (reference range normal: 14) - White blood cell count: Good - Platelet count: Good - Sodium/Potassium: Good - BUN: 30 mg/dL (reference range: 9-16) - Creatinine: 1.22 mg/dL - Liver function tests: Normal - LDL: 88 mg/dL - Triglycerides: 222 mg/dL - Vitamin B12: Low - Folic acid: Normal - Thyroid studies: Normal - Urinalysis: No proteinuria PFSH Medical History TIA (transient ischemic attack) Hypercholesterolemia COPD (chronic obstructive pulmonary disease) Carpal tunnel syndrome, left Hypothyroid Type 2 diabetes mellitus with hyperglycemia PTSD (post-traumatic stress disorder) AAA (abdominal aortic aneurysm) Gout Hypertension Overweight (BMI 25.0-29.9) Degenerative disc disease Insomnia Alcohol abuse Surgical History History of cataract surgery History of colonoscopy History of lumbar fusion History of carpal tunnel release History of lumbar surgery H/O pelvic surgery Varicocele H/O left wrist surgery Family History Father CVD (cardiovascular disease) Cancer Mother Cancer Social History (Reviewed 05/05/24 @ 15:07 by RIGO Sebastian Housing: House Alcohol intake: current Alcohol intake frequency: holidays/special occasions only Comment: Q 2 week 1 beer Patient Tobacco Use Status: Former Tobacco user Tobacco use type: Cigarette Years Smoked: stopped 1976 e-Cigarette/Vaping Use: Never Used Second Hand Smoke Exposure: Yes service: Yes Current occupational status: retired Cognitive needs: No Hearing needs: No Vision needs: Yes Questionnaire Thrive Questionnaire Date Thrive assessed: 08/11/24 I am a: Patient What is your living situation today?: I have a steady place to live Within the past 12 months, did the food you bought not last and you didn't have the money to get more?: Never true Within the past 12 months, did you worry whether your food would run out before you got money to buy more?: Never true Do you have trouble paying for medicines?: No Do you have trouble getting transportation to medical appointments?: No Do you have trouble paying your heating and electricity bill?: No Do you have trouble taking care of your child, family member or friend?: No Do you have trouble with day-to-day activities such as bathing, preparing meals, shopping, managing finances, etc.?: No Are you currently unemployed and looking for a job?: No Are you interested in more education?: No Please select the resources that you would like help with: None Currently or been in a relationship where the following occur: No concerns reported THRIVE Score: 0 RACHEL-7 AMB Questionnaire RACHEL-7 Date RACHEL - 7 assessed: 05/05/24 Source: Developed by Drs. Vicente Rocha, Tessa Mantilla, Marcelo Jacobson and colleagues, with an educational leeann from [employer]. Review of Systems Narrative Review of Systems - General: Reports feeling good. - GI: Reports good bowel movements. - : Denies any urinary problems. - Musculoskeletal: No new complaints beyond his chronic low back pain. - Extremities: Denies leg swelling. - Dermatologic: Reports dry skin. Physical exam (Primary Care) Vital Signs: Last Vital Signs Pulse 76 02/12/25 14:01 BP 140/78 H 02/12/25 14:01 Pulse Ox 97 02/12/25 14:01 Oxygen Delivery Method Room Air 02/12/25 14:01 BMI result Body Mass Index 28.4 Tobacco/Smoking Status: Tobacco use Status Tobacco use date assessed 05/05/24 02/12/25 14:04 Patient Tobacco Use Status Former Tobacco user 02/12/25 14:04 Tobacco use type Cigarette 02/12/25 14:04 e-Cigarette/Vaping Use Never Used 02/12/25 14:04 Thrive Assessment: Date of Thrive Assessment Date Thrive assessed 08/11/24 02/12/25 14:04 Currently or been in a relationship where the following occur: No concerns reported Narrative Physical Exam Const General: alert; No acute distress Eyes Conjunctivae: conjunctivae normal Resp Auscultation: clear to auscultation bilaterally Cardio Rate: regular rate Rhythm: regular rhythm GI Inspection: Yes normal to inspection Extrem General: Yes normal to inspection and No edema Coding Level of Care Code Est Pt Level 4 (06133) Complex visit Add On G2211 Diagnoses Type 2 diabetes mellitus with hyperglycemia, without long-term current use of insulin E11.65 Diabetes mellitus long term care social worker insulin use: without long term care social worker use Essential hypertension I10 Hypertension type: essential hypertension Mixed hyperlipidemia E78.2 Acquired hypothyroidism E03.9 Hypothyroidism type: acquired History of lumbar surgery Z98.890 Assessment & Plan Assessment & Plan (1) Type 2 diabetes mellitus with hyperglycemia: Comment: [facility], [facility] Code(s): E11.65 - Type 2 diabetes mellitus with hyperglycemia Category: Medical Qualifiers: Diabetes mellitus nursing home insulin use: without long term care social worker use Qualified Code(s): E11.65 - Type 2 diabetes mellitus with hyperglycemia Plan: Decrease the amount of carbohydrate intake, pasta, bread, rice and potatoes are all sugar and that is aside from all the sweet stuff, remember that fruits are good but they are Sweet also. Hemoglobin A1c goal of less than 7.0 on metformin a 1000 mg twice a day (2) Hypertension: Code(s): I10 - Essential (primary) hypertension Category: Medical Qualifiers: Hypertension type: essential hypertension Qualified Code(s): I10 - Essential (primary) hypertension Plan: Continue with blood pressure medication. Decrease salt intake and exercise takes amlodipine 5 mg once a day lisinopril 40 mg once a day (3) Mixed hyperlipidemia: Code(s): E78.2 - Mixed hyperlipidemia Category: Medical Plan: Avoid fried foods, chicken skin, eggs, butter margarine, pastries and meat. Be it pork or beef they have a lot of cholesterol LDL goal of less than 100 and triglyceride of less than 150 on fenofibrate and atorvastatin (4) Hypothyroid: Code(s): E03.9 - Hypothyroidism, unspecified Category: Medical Qualifiers: Hypothyroidism type: acquired Qualified Code(s): E03.9 - Hypothyroidism, unspecified Plan: Continue with thyroid medication (5) History of lumbar surgery: Comment: L4-5 decompression 02/2012 Code(s): Z98.890 - Other specified postprocedural states Category: Surgical Plan: Continue with present medication as needed Plan Plan Patient was informed and verbally consented to the use of an ambient scribe for clinic note documentation during this visit. 1. Type 2 Diabetes Mellitus The patient's hemoglobin A1c is 7.2%, which is above the goal of less than 7.0%. The patient declined any additional medication at this time and will focus on dietary management. He will continue taking metformin 1000 mg twice a day. 2. Hyperlipidemia The patient's LDL cholesterol is at goal at 88 mg/dL on atorvastatin. His triglycerides are elevated at 222 mg/dL, above the goal of less than 150 mg/dL, which is likely related to recent diet. He will continue his current regimen of atorvastatin and fenofibrate with counseling on diet. 3. Vitamin B12 Deficiency Recent labs showed a low vitamin B12 level. A prescription for once-daily vitamin B12 supplementation has been sent to help with red blood cell pro duction. 4. Essential Hypertension The patient's blood pressure is managed on his current medication. He will continue taking amlodipine 5 mg once a day and lisinopril 40 mg once a day. 5. Hypothyroidism His thyroid function is normal on his current medication. He will continue his current thyroid medication. 6. Dehydration Labs showed a BUN of 30, indicating dehydration. The patient acknowledged not drinking much water, and he was counseled to increase his fluid intake. Discussion Notes I reviewed the recent lab results with the patient. I explained that his hemoglobin A1c of 7.2% is slightly above our goal of less than 7%. He declined any additional medication for his diabetes at this time, preferring to focus on diet, and I agreed to hold off. I informed him about the finding of mild, chronic anemia and explained that his low vitamin B12 level could be a contributing factor. I prescribed a vitamin B12 supplement to help with red blood cell production. I also highlighted that his BUN level of 30 indicates dehydration and advised him to increase his water intake. We discussed his cholesterol levels, noting his LDL is well-controlled at 88, but his triglycerides are elevated at 222, likely due to his recent holiday diet. I confirmed he is up to date with his vaccinations and health screenings. I provided anticipatory guidance on staying safe and avoiding illness, as flu and COVID-19 are prevalent. Patient Instructions - A prescription for Vitamin B12 has been sent to your pharmacy. - Please take it once a day. - Continue to take your current medications for diabetes, high blood pressure, cholesterol, and thyroid as prescribed. - Make sure to drink plenty of water throughout the day to avoid dehydration. - Be mindful of your diet, especially during the holidays, to help keep your blood sugar and triglyceride levels in a healthy range. - Continue with your yearly eye exams. - Please be careful and take precautions to avoid getting sick, as there are many respiratory viruses like flu and COVID-19 spreading. Medications: New cyanocobalamin (vitamin B-12) 1,000 mcg PO DAILY 30 caps 3RF E53.8 - Deficiency of other specified B group vitamins
[2025-02-12 14:01] VITALS: BP 140/78; PULSE 76; O2SAT 97; BMI 28.4
--- OUTSIDE RECORDS SUMMARY | 2025-02-12 19:13 | XMS_ITS | Patient Health Record ---
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 Name Role Phone Alan Garces MD Primary Care Provider Vicente Dyson [phone] Reason For Referral No Information Medications Medication SIG (Take, Route, Frequency, Duration) Notes Start Date End Date Status hydroCHLOROthiazide 25 MG Tablet Orally Active Multi Vitamin/Minerals Active Fish Oil Active Vitamin D-3 1000u Ac tive Lisinopril 40mg Acti ve Colcrys 0.6 Active Fenofibrate 160mg Ac tive Aspirin 81mg Active Immunizations Vaccine Route Administration Date Status Comme nts Influenza Unknown 11/11/2015 Administered Social History Social History Additional Details Category Social Info Options Details Miscellaneous: Marital status: 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 Section Notes: Nonsmoker; no sig alcohol Problems Problem Type SNOMED Code ICD Code Onset Dates Problem Status W/U Status Risk Notes Problem Screening for malignant neoplasm of colon (733257203) Encounter for screening for malignant neoplasm of colon (Z12.11) Active confirmed Problem History of adenomatous polyp of colon (977766606) History of adenomatous polyp of colon (Z86.010) Active confirmed Problem Screening for malignant neoplasm of rectum (502236540) Encounter for screening for malignant neoplasm of rectum (Z12.12) Active confirmed Problem Long-term current use of antiplatelet drug ([id number] ) Long-term use of aspirin therapy (Z79.82) Active confirmed Plan Of Treatment Pending Test Test Name Order Date GI BIOPSY 07/13/2016 Future Test Test Name Order Date COLONOSCOPY 12/01/2010 COLONOSCOPY 04/21/2016 Insurance Providers Payer Name Payer Address Payer Phone Subscriber Number Group Number Insured Name Patient Relationship to Insured Coverage Start Date Coverage End Date MEDICARE OF [place] [address] [place] [id number] [phone] [id number] ROSIE DECKER SINA Self - patient is the insured [employer] ATTN CLAIMS [address] [place] [phone] [id number] ROSIE DECKERSINA Self - patient is the insured Medical [...]
--- OUTSIDE RECORDS SUMMARY | 2025-02-12 19:13 | XMS_ITS | Clinical Summary ---
Author Organization [facility] Address [address] [place] [address] Care Team Providers Care House Father Name Role Phone Alan Garces MD Primary Care Provider [phone] Social History Tobacco Use Types Packs/Day Years [...] age to complete this topic Care Teams House Father Relationship Specialty Start Date End Date Po, MD Alan [address] [place] [address] Dr [address] [facility] JAM[place] Ray [id number] PCP - General Internal Medicine 12/21/16
== END 2025-02-12 14:17 | disposition home or self-care (01) ==
PROVIDERS: PCP Internal Medicine; Visit Provider Internal Medicine
DX: E11.65 Type 2 diabetes mellitus with hyperglycemia (principal); I10 Essential (primary) hypertension; E78.2 Mixed hyperlipidemia; E03.9 Hypothyroidism, unspecified; Z98.890 Other specified postprocedural states

== ENCOUNTER → 2025-02-12 13:59 | Outpatient (BNVA) | payer MEDICARE, SELFPAY | PROVIDERS: PCP Internal Medicine; Visit Provider Internal Medicine | DX: E11.65 Type 2 diabetes mellitus with hyperglycemia (principal); E78.2 Mixed hyperlipidemia; E03.9 Hypothyroidism, unspecified; I10 Essential (primary) hypertension; Z98.890 Other specified postprocedural states | CPT/HCPCS: 99212 ==